=== PATIENT | female | born 1950 | race Caucasian/White ===

== ENCOUNTER → 2024-07-22 11:24 | Outpatient (REF) | payer MEDICARE, SELFPAY | LOC: RAD 11:24 | PROVIDERS: ATTENDING PHYSICIAN Family Medicine | DX: J44.9 Chronic obstructive pulmonary disease, unspecified (principal); N18.32 Chronic kidney disease, stage 3b | CPT/HCPCS: 71046; 71250 ==

== ENCOUNTER → 2024-08-08 13:31 | Outpatient (REF) | payer MEDICARE, SELFPAY | LOC: RAD 13:31 | PROVIDERS: ATTENDING PHYSICIAN Physician Assistant | DX: R09.02 Hypoxemia (principal) | CPT/HCPCS: 71046 ==

== ENCOUNTER → 2024-08-21 15:47 | Outpatient (REF) | payer MEDICARE, SELFPAY | LOC: RCS 15:47 | PROVIDERS: ATTENDING PHYSICIAN Physician Assistant; FAMILY PHYSICIAN Family Medicine | DX: R06.02 Shortness of breath (principal) | CPT/HCPCS: 93306 ==

== ENCOUNTER 2024-10-01 19:42 | Inpatient (IN) | payer MEDICARE, SELFPAY ==
[2024-10-01] VITALS (11 sets, daily range): BP systolic 111–141; BP diastolic 53–78; BMI 20.2
[2024-10-01 12:53] LABS: % Basophils 0.7 % (0-2); % Eosinophils 2.4 % (0-6); % Immature Granulocytes 0.2 % (0-0.5); % Neutrophils 82.7 % (42.2-75.2); Absolute Basophils 0.1 10^3/uL (0-0.2); Absolute Eosinophils 0.2 10^3/uL (0-0.7); Absolute Lymphocytes 0.7 10^3/uL (1.2-3.4); Absolute Monocytes 0.6 10^3/uL (0.1-0.6); Absolute Neutrophils 7.5 10^3/uL (1.4-6.5); Hematocrit 38.4 % (37.0-47.0); Hemoglobin 11.6 g/dL (12.0-16.0); Mean Corp Hgb Conc. 30.2 g/dL (33.0-37.0); Mean Corpuscular Hgb 31.8 pg (27.0-31.0); Mean Corpuscular Volume 105.2 fL (81.0-99.0); Mean Platelet Volume 10.2 fL (7.4-10.4); Nucleated Red Blood Cells % 0 %; Platelet Count 223 10^3/uL (130-400); Red Blood Cell Count 3.65 10^6/uL (4.20-5.40); Red Cell Dist. Width 16.2 % (11.5-14.5); White Blood Cell Count 9.1 10^3/uL (4.8-10.8)
[2024-10-01 13:11] LABS: ALT (SGPT) < 10 U/L (0-35); AST (SGOT) 25 U/L (14-36); Albumin 4.2 g/dl (3.5-5.0); Alkaline Phosphatase 89 U/L (38-126); Blood Urea Nitrogen 55 mg/dl (7-17); Calcium 9.5 mg/dl (8.4-10.2); Carbon Dioxide 36 mmol/L (22-30); Chloride 93 mmol/L (98-107); Estimated Creatinine Clearance 37 ml/min; Glucose 113 mg/dl (70-99); Potassium 4.6 mmol/L (3.5-5.1); Sodium 138 mmol/L (135-145); Total Bilirubin 0.7 mg/dl (0.2-1.3); Total Protein 7.5 g/dl (6.3-8.2); eGFR 59.86
[2024-10-01 13:19] LABS: Procalcitonin < 0.05 ng/ml (0.0-0.25)
[2024-10-01 13:26] LABS: NT-proBNP 18800 pg/ml; Troponin I 0.064 ng/ml
[2024-10-01] MEDS: DUONEB 3 ML INH (13:52)
--- NOTE | 2024-10-01 14:03 | ED.GENMED ---
History of Present Illness
General
Chief Complaint: Breathing Problem
Source: patient, spouse and ambulance crew
Time Seen by Provider: 10/01/24 12:25
History of Present Illness
History of Present Illness:
74-year-old female presents to the emergency room by ambulance from her pulmonary doctors office for further evaluation of profound hypoxia. Patient has a history of COPD and is on chronic nasal cannula oxygen at 4 L. Patient was seen by her
business development associate a month or so ago and noted to be quite hypoxic. They recommended she come to the emergency at that time for a workup but patient refused. Follow-up visit today reveals the patient continued to be hypoxic in the 70s despite using 15
L of oxygen via a mid flow nasal cannula. Patient feels generally weak and feels quite short of breath with minimal exertion. She denies any chest pain, fevers, chills. She says she has no cough whatsoever.
Past History
Past History
ED Past Medical History: HTN and NIDDM
ED Past Surgical History: Orthopedic (back surgery 1989)
Social History
Tobacco: Former smoker
Alcohol: Occasional
Personal:
Living: with family
Employment: Not employed
Phy Exam
Physical Exam
Physical Exam:
General: Awake, Alert, Oriented X3. Cyanotic, cachectic
Vitals: Hypoxic, normotensive
Head: Atraumatic
Eyes: Pupils equal, EOMI
Throat: Airway intact, no exudates
Neck: Trachea midline
Lungs: Significantly decreased breath sounds bilaterally
Heart: Regular rate, no murmurs
Abd: Soft, Nontender, No pulsatile mass
Neuro: Nonfocal
Skin: Warm, dry, no rash
Extremities: pulses equal b/l, no edema peripheral cyanosis
Scores
Heart Failure Risk
Heart Failure Risk Score: Not Applicable
Course
Orders/Labs/Results
Orders:
Orders
10/01/24 12:28
EKG [Electrocardiogram (*1)] Stat
Reason for Study: Shortness of Breath
EKG- Treatment ONCE
10/01/24 12:35
Cardiac Monitoring- Treatment ONCE
Ipratropium/Albuterol Sulfate [Duoneb] 3 ml INH R NOW STA
10/01/24 12:36
CR Chest Portable - 1 View Urgent
Comment:
Reason For Exam: severe hypoxia
Reason Study Needs to be Portable: Unable to Transport
10/01/24 12:37
O2 Therapy [RESP] Urgent
Titrate/Wean O2 to maintain O2 sat greater than (%): 88
10/01/24 12:44
Complete Blood Count/With Diff Urgent
Comprehensive Metabolic Panel Urgent
NT-proBNP Urgent
Procalcitonin Urgent
PCT Algorithmm Indication: Respiratory
Troponin I Urgent
10/01/24 13:17
CT Chest PE Study Urgent
Comment:
Reason For Exam: hypoxia
10/01/24 14:00
0.9% Sodium Chloride 500 ml [Nss] 500 ml IV 150 mls/hr
Abnormal Lab Results
10/01/24
12:44
RBC 3.65 L 10^6/uL
(4.20-5.40)
Hgb 11.6 L g/dL
(12.0-16.0)
MCV 105.2 H fL
(81.0-99.0)
MCH 31.8 H pg
(27.0-31.0)
MCHC 30.2 L g/dL
(33.0-37.0)
RDW 16.2 H %
(11.5-14.5)
Absolute Neuts (auto) 7.5 H 10^3/uL
(1.4-6.5)
Absolute Lymphs (auto) 0.7 L 10^3/uL
(1.2-3.4)
Neutrophils % 82.7 H %
(42.2-75.2)
Lymphocytes % 8.0 L %
(20.5-51.1)
Chloride 93 L mmol/L
(98-107)
Carbon Dioxide 36 H mmol/L
(22-30)
BUN 55 H mg/dl
(7-17)
Glucose 113 H mg/dl
(70-99)
Troponin I 0.064 H* ng/ml
10/01/24 12:44
10/01/24 12:44
Vital Signs
Initial and Last Documented VS:
Initial Vital Signs
Pulse Resp BP Pulse Ox
76 14 141/74 76
10/01/24 12:27 10/01/24 12:27 10/01/24 12:27 10/01/24 12:27
Last Documented Vital Signs
Pulse Resp BP Pulse Ox
74 25 141/74 93
10/01/24 12:45 10/01/24 12:45 10/01/24 12:29 10/01/24 13:53
*Pulse Oximetry
Patient hypoxic: yes
*EKG
Interpreted by ED Provider?: Yes
Interpretation: abnormal
Heart Rate: 80
Rate: normal
Rhythm: sinus
Interval: normal interval
QRS Pattern: normal QRS
Ischemia: non-specific ST changes
*Senior Gis Analyst Interpretation
Rate: normal
Interpretation: normal
Rhythm: sinus
*Critical Care Note
Total Time (30-74mins, 75-104mins- exclusive of procedures): 43 min
ED Attending Note
-
Portions of this chart may have been created with voice recognition software.� Occasional wrong word or��sound alike� substitutions may have occurred due to the inherent limitations of voice recognition software.
Discharge Plan
Departure
Prescriptions:
No Action
atorvastatin 40 MG tablet
40 mg PO HS
metoprolol succinate 100 MG tablet extended release 24 hr
100 mg PO DAILY
metformin 1,000 MG tablet
1,000 mg PO BID@0800,1700
aspirin 81 MG tablet,chewable
81 mg PO DAILY
hydrochlorothiazide 25 MG tablet
25 mg PO DAILY
albuterol sulfate 1 PUFF HFA aerosol inhaler
2 puff inhalation R Q4HPRN PRN (Reason: sob)
lisinopril 40 MG tablet
40 mg PO DAILY
multivitamin with folic acid [Tab-A-Bernardo] 1 TABLET tablet
1 tab PO DAILY
Referrals:
Eduar Hernandez MD [Family Provider] -
Interventions
Interventions:
*General Assessment Last Done: 10/01/24 12:35
*ED COVID-19 Vaccine History Last Done: 10/01/24 12:35
Discharge Date and Time
Print Language: BURKINAN
[2024-10-01] MEDS: NSS 500 IV (15:33)
--- NOTE | 2024-10-01 16:22 | HPS.HSE ---
Addendum entered and electronically signed by Maya Peng MD 10/01/24 21:21:
Patient wants to be full code.
Original Note:
Family Physician
-
Family Physician: Eduar Hernandez
Chief Complaint
-
shortn
History of Present Illness
74-year-old female past medical history of COPD, hypertension, hyperlipidemia, type 2 diabetes, obesity, presenting with profound hypoxemia.
She was seen by her paving machine operator approximately 2 months ago and noted to be hypoxic. They recommended she come to the emergency room at the time for workup but patient refused. She has been using initially 4 L of oxygen up to 15 L. Follow-up
visit today reveals the patient continues to be hypoxic to the 70s despite using 15 L of oxygen via mid flow nasal cannula. She has not been on any diuretics. She had outpatient echocardiogram.
Patient has recently been treated with 10-day course of amoxicillin for sinus infection. She has 2 days left. She denies any sinus symptoms currently.
She denies cough. Denies chest pain. Denies nausea vomiting or diarrhea. She has some lower extreme edema but denies weight gain.
Patient denies alcohol. He is a former smoker.
Medical History
Past Medical History
Past Medical History: Reports Other (COPD on 4 L baseline, hypertension, hyperlipidemia, type 2 diabetes, obesity)
Past Surgical History: Reports Other (Orthopedic (back surgery 1989))
Social History
Tobacco: Former Smoker
Alcohol: None
Drug: None
Family History
Family History: Not pertinent
Allergies / Home Medications
Allergies reflects when Allergies were last updated in [facility].
Home Medications with original date entered in [facility]
Allergy/Medication List:
Allergies
Allergy/AdvReac Type Severity Reaction Status Date / Time
hydromorphone [From Dilaudid] Allergy hypoxia Verified 08/30/21 18:31
and n/v
Home Medications
albuterol sulfate 90 mcg/actuation aerosol inhaler 2 puff inhalation R Q4HPRN PRN sob 08/30/21
aspirin 81 mg chewable tablet 81 mg PO DAILY 08/30/21
atorvastatin 40 mg tablet 40 mg PO HS 08/30/21
hydrochlorothiazide 25 mg tablet 25 mg PO DAILY 08/30/21
lisinopril 40 mg tablet 40 mg PO DAILY 08/30/21
metformin 1,000 mg tablet 1,000 mg PO BID@0800,1700 08/30/21
metoprolol succinate 100 mg tablet,extended release 24 hr 100 mg PO DAILY 08/30/21
multivitamin with folic acid 400 mcg tablet (Tab-A-Bernardo) 1 tab PO DAILY 08/30/21
amoxicillin 500 mg capsule 1,000 mg PO Q12H 10/01/24
escitalopram oxalate 20 mg tablet (Lexapro) 20 mg PO DAILY 10/01/24
Review of Systems
-
History Source: Patient
A 12 point ROS was completed and negative except as noted: Yes
Constitutional: Reports No Symptoms
EENT: Reports No Symptoms
Respiratory: Reports See HPI
Cardiac: Reports No Symptoms
Abdomen/GI: Reports No Symptoms
: Reports No Symptoms
Musculoskeletal: Reports No Symptoms
Skin: Reports No Symptoms
Neurological: Reports No Symptoms
Endocrine: Reports No Symptoms
Hematologic/Lymphatic: Reports No Symptoms
Psych: Reports No Symptoms
Physical Exam
Vital Signs
Vital Signs
Pulse Resp BP Pulse Ox
75 19 119/57 85
10/01/24 16:00 10/01/24 16:00 10/01/24 16:00 10/01/24 16:10
Physical Exam
General: Well Developed, Well Nourished and No Apparent Distress
HEENT: NormoCephalic, Moist mucous membranes and Atraumatic
Respiratory: Rales
Cardiac: S1/S2, Regular Rhythm and Peripheral Edema; No Murmur or Rub
GI: Soft, Non Tender, Non Distended and Normal Bowel Sounds; No Organomegaly
Rectal: Deferred by Provider
Musculoskeletal: No Clubbing, No Cyanosis and No Edema
Skin: No Rash
Neuro: Nonfocal/grossly intact
Laboratory Results
-
10/01/24 12:44
10/01/24 12:44
Laboratory Results
Total Bilirubin 0.7 mg/dl (0.2-1.3) 10/01/24 12:44
AST 25 U/L (14-36) 10/01/24 12:44
ALT < 10 U/L (0-35) 10/01/24 12:44
Alkaline Phosphatase 89 U/L (38-126) 10/01/24 12:44
Troponin I 0.064 ng/ml H* 10/01/24 12:44
Data Reviewed
-
Lab Data: Labs Reviewed by me
Old Records: Reviewed
Impression/Plan
-
IMPRESSION:
PLAN:
# Hypoxemic respiratory failure secondary to right heart failure secondary to severe pulmonary hypertension/tricuspid regurgitation
-Bilateral crackles on examination
-Patient currently on high flow
-CT PE shows no acute disease of the chest
-Cardiac BNP of 18,000
-EKG shows normal sinus rhythm, sinus arrhythmia
-Recent echo shows hyperdynamic LV with EF of 70 to 75%, flattened septum, RV overload, severe tricuspid regurgitation, severe pulmonary hypertension
-Strict I's and O's, daily weights
-Given IV fluids so stop fluids
-Lasix 40 IV daily
-Cardiology consulted
-Pulmonary consulted
COPD
-was not on oxygen until July
-Continue albuterol
Recent sinus infection
-Continue amoxicillin for 2 more days
Essential hypertension
-Continue metoprolol
-Hold lisinopril, hydrochlorothiazide to avoid hypotension during diuresis
Hyperlipidemia
-Continue statin
Type 2 diabetes
-Hold metformin
-Insulin sliding scale
Obesity
Anxiety/depression
-Continue Lexapro
Former smoker
DNR/DNI
DVT prophylaxis�heparin
Cardiac diet
--- NOTE | 2024-10-01 16:44 | CON.CAR ---
Addendum entered and electronically signed by Gerber Rodriguez MD 10/01/24 17:31:
I saw and examined the patient.
The Cotton Sampler's note was reviewed and I agree with the note.
Comment: Briefly, 74-year-old woman past medical history of stage IV COPD on home O2 (15 L) and severe pulmonary hypertension who was sent from her assessment analyst office due to hypoxia. Cardiology is asked to evaluate for suspected HFpEF.
Patient tells me that she has had worsening dyspnea over the last several weeks and has been requiring increased supplemental oxygen at home. In addition during this time she has noted worsening lower extremity edema which she attributes to a new
inhaled controller medication. Discussed with patient that recent echo showed preserved LV function but dilated right ventricle with severe range pulmonary pressures and this is likely contributing to her lower extremity edema.
Recommend IV Lasix 40 mg twice daily to improve her edema and hopefully her respiratory status
Follow daily weights, renal function and electrolytes
Explained to her that she will likely need daily maintenance diuretic on discharge
Discussed with patient and family at bedside, all questions answered
Original Note:
Consultation
Consultation Request
Date/Time Consultation Requested: 10/01/24
Date/Time Consultation Performed: 10/01/24
Requesting Provider: Dr. Peng
Performing Provider: Dr. Rodriguez
Reason for Consultation: Acute HF
Medical History
-
History of Present Illness:
Patient was sent from pulmonology office to ER today with hypoxia and cardiology is now consulted for possible acute HF. Patient started following with pulmonology in August for possible COPD and increasing SOB. Home oxygen had been started
by her PCP back in June. Pulmonology added inhalers. When patient was seen at their office today she was noted to be hypoxic on maximal oxygen therapy and 911 was called. Patient is felt to have stage IV COPD her hypoxia though was felt to be
multifactorial including emphysema, ILD and pulmonary hypertension. Patient had echo 08/21/2024 as noted above with severe pulmonary hypertension and pulmonary artery pressures of 85 to 90 mmHg. Patient was scheduled to see Dr. Singh as a new
patient in the office on 10/06/2024. There is no previous cardiac testing here at [facility]. proBNP 18,800 and CXR without acute disease. The CT of the chest showed no evidence of PE which apparently was a concern from pulmonology while in the
office. CT of the chest though did show a spiculated pleural-based nodule in the anterior right upper lobe for which PET imaging has been recommended.
PMH:
Severe pulmonary hypertension
COPD, stage IV
Former smoker
Weight loss
Past Medical History
Past Medical History: Other (in HPI)
Past Surgical History: Orthopedic and Tonsilectomy
Social History
Tobacco: Former Smoker (30 pack year history)
Alcohol: None
Drug: None
Personal:
Living: With Family
Family History
Family History: Cancer (lung)
Allergies / Home Medications
Allergy/AdvReac Type Severity Reaction Status Date / Time
hydromorphone [From Dilaudid] Allergy hypoxia Verified 08/30/21 18:31
and n/v
�Medication �Instructions �Recorded �Confirmed �Type
albuterol sulfate 90 mcg/actuation 2 puff inhalation R Q4HPRN PRN sob 08/30/21 10/01/24 History
aerosol inhaler
aspirin 81 mg chewable tablet 81 mg PO DAILY 08/30/21 10/01/24 History
atorvastatin 40 mg tablet 40 mg PO HS 08/30/21 10/01/24 History
hydrochlorothiazide 25 mg tablet 25 mg PO DAILY 08/30/21 10/01/24 History
lisinopril 40 mg tablet 40 mg PO DAILY 08/30/21 10/01/24 History
metformin 1,000 mg tablet 1,000 mg PO BID@0800,1700 08/30/21 10/01/24 History
metoprolol succinate 100 mg 100 mg PO DAILY 08/30/21 10/01/24 History
tablet,extended release 24 hr
multivitamin with folic acid 400 1 tab PO DAILY 08/30/21 10/01/24 History
mcg tablet (Tab-A-Bernardo)
amoxicillin 500 mg capsule 1,000 mg PO Q12H 10/01/24 10/01/24 History
escitalopram oxalate 20 mg tablet 20 mg PO DAILY 10/01/24 10/01/24 History
(Lexapro)
Review of Systems
-
History Source: Patient and Family
All other systems: Negative unless noted
Physical Exam
Vital Signs
Pulse Resp BP Pulse Ox
75 19 119/57 85
10/01/24 16:00 10/01/24 16:00 10/01/24 16:00 10/01/24 16:10
GEN: NAD. AAOx3
HEENT: EOMI, MMM
LUNGS: 15 L high flow. Rales without wheeze
CV: SR on tele. Reg, no murmur
ABD: soft, BS+, NT, ND
EXT: No edema B/L
NEURO: Gross non-focal
SKIN: No rash
Lab Results
10/01/24 12:44
10/01/24 12:44
Troponin I 0.064 ng/ml H* 10/01/24 12:44
Gzq-A-Mbyhqnczwxp Pept 75301 pg/ml 10/01/24 12:44
Impression / Plan
-
PCP: Dr. Hernandez
Pulm: Dr. Garcia
Card: scheduled to see Dr. Connolly as a new patient 10/06/24
Impression:
Admitted with multifactorial SOB 10/01/2024
Acute hypoxemic respiratory failure, multifactorial
Elevated troponin
Suspected right heart failure
Severe pulmonary hypertension
COPD, stage IV
Former smoker
Weight loss
Spiculated pleural-based nodule in the anterior right upper lobe on CT chest 10/01/2024
Echo 08/21/2024: EF 70 to 75%, flattened septum in systole consistent with RV pressure overload (D-shaped ventricle), enlarged RV size with normal RV systolic function, calcified aortic valve without obvious stenosis or regurgitation, severe TR with
severe pulmonary hypertension and PAP 85 to 90 mmHg, no previous echo for comparison
Plan:
-Patient was sent from pulmonology office to ER today with hypoxia and cardiology is now consulted for possible acute HF. Patient started following with pulmonology in August for possible COPD and increasing SOB. Home oxygen had been started
by her PCP back in June. Pulmonology added inhalers. When patient was seen at their office today she was noted to be hypoxic on maximal oxygen therapy and 911 was called. Patient is felt to have stage IV COPD her hypoxia though was felt to be
multifactorial including emphysema, ILD and pulmonary hypertension. Patient had echo 08/21/2024 as noted above with severe pulmonary hypertension and pulmonary artery pressures of 85 to 90 mmHg. Patient was scheduled to see Dr. Singh as a new
patient in the office on 10/06/2024. There is no previous cardiac testing here at [facility]. proBNP 18,800 and CXR without acute disease. The CT of the chest showed no evidence of PE which apparently was a concern from pulmonology while in the
office. CT of the chest though did show a spiculated pleural-based nodule in the anterior right upper lobe for which PET imaging has been recommended.
-ECG reviewed by me shows sinus rhythm with inferior ST changes.
-Initial troponin 0.064. ECG with nonspecific inferior ST changes. No complaints of chest pain. Troponin elevation certainly could be nonischemic myocardial injury due to hypoxia. Recommend trending troponin.
-Continue aspirin 81 mg daily
-Check follow-up limited study echo to recheck EF and look for WMA, EF was 70 to 75% by echo 08/21/2024 without WMA. Patient is not a candidate for any type of ischemic evaluation currently due to high oxygen demands
-Agree with Lasix 40 mg IV twice daily. Patient was not taking a loop diuretic prior to admission, but was on a regimen of HCTZ 25 mg daily. HCTZ should be held.
-Outpatient dose of Toprol XL 100 mg daily should be continued, no wheezing heard on exam
-Outpatient dose of lisinopril 40 mg daily should be continued
-Could consider adding SGLT2 pending overall clinical course.
-Patient with an enlarged RV, but normal RV systolic function on echo 08/21/2024. Pulmonary pressures were elevated and this is likely due to her underlying lung disease which would be most consistent with secondary pulmonary hypertension.
-Patient with evidence of spiculated pleural-based nodule in the anterior right upper lobe and PET imaging was recommended after CT scan 10/01/2024. This apparently was not a new finding and patient was previously ordered a PET scan by her PCP.
Pulmonology outpatient notes reviewed in detail and patient has a history of smoking and has had a 50 pound weight loss in the last 3 years
[2024-10-01] MEDS: LASIX 40 MG IV (16:59)
[2024-10-01] MEDS: NSS IV ×2 (17:26→23:43)
[2024-10-01 23:47] LABS: Glucose - Point of Care 147 mg/dl (70-99)
[2024-10-02] VITALS (20 sets, daily range): BP systolic 101–149; BP diastolic 57–83
[2024-10-02] MEDS: TYLENOL 650 MG PO ×2 (00:03→09:41)
[2024-10-02] MEDS: LIPITOR 40 MG PO ×2 (00:04→20:53)
[2024-10-02] MEDS: NOVOLOG FLEXPEN-LOW RESISTANCE SC ×4 (00:04→17:24)
[2024-10-02] MEDS: AMOXIL 1000 MG PO ×3 (00:04→20:53)
[2024-10-02] MEDS: HEPARIN 5000 UNITS SC ×3 (00:04→20:54)
[2024-10-02 05:02] LABS: ALT (SGPT) < 10 U/L (0-35); AST (SGOT) 21 U/L (14-36); Albumin 3.2 g/dl (3.5-5.0); Alkaline Phosphatase 75 U/L (38-126); Blood Urea Nitrogen 53 mg/dl (7-17); Calcium 8.3 mg/dl (8.4-10.2); Chloride 93 mmol/L (98-107); Estimated Creatinine Clearance 33 ml/min; Glucose 98 mg/dl (70-99); Potassium 4.1 mmol/L (3.5-5.1); Sodium 139 mmol/L (135-145); Total Bilirubin 0.7 mg/dl (0.2-1.3); eGFR 53.39
[2024-10-02 05:12] LABS: Carbon Dioxide 35 mmol/L (22-30)
[2024-10-02 06:53] LABS: % Eosinophils 3.9 % (0-6); % Immature Granulocytes 0.5 % (0-0.5); % Lymphocytes 11.8 % (20.5-51.1); % Monocytes 8.8 % (1.7-9.3); Absolute Basophils 0.1 10^3/uL (0-0.2); Absolute Eosinophils 0.3 10^3/uL (0-0.7); Absolute Lymphocytes 0.9 10^3/uL (1.2-3.4); Absolute Monocytes 0.7 10^3/uL (0.1-0.6); Absolute Neutrophils 5.9 10^3/uL (1.4-6.5); Hematocrit 30.6 % (37.0-47.0); Hemoglobin 9.8 g/dL (12.0-16.0); Mean Corpuscular Hgb 32.2 pg (27.0-31.0); Mean Corpuscular Volume 100.7 fL (81.0-99.0); Mean Platelet Volume 10.5 fL (7.4-10.4); Nucleated Red Blood Cells % 0 %; Platelet Count 173 10^3/uL (130-400); Red Blood Cell Count 3.04 10^6/uL (4.20-5.40); Red Cell Dist. Width 15.6 % (11.5-14.5)
--- NOTE | 2024-10-02 08:50 | W.PN.CARDCBS ---
Today's Communication / Plan
-
RECOMMENDATIONS:
-Continue IV diuresis
-Follow renal function
-I suspect hypoxia and severe pulmonary hypertension likely not one etiology but multifactorial
-Will follow
Impression / Plan
-
PCP: Dr. Hernandez
Pulm: Dr. Garcia
Card: scheduled to see Dr. Connolly as a new patient 10/06/24
This is a 74-year-old female with a past medical history notable for severe underlying COPD and was initiated on home oxygen therapy in June 2024. Additional history includes hypertension and hyperlipidemia. Long history of tobacco abuse. A
chest CT scan from 07/22/2024 was notable for a 1.4 cm pleural-based parenchymal opacity in the anterior right upper lobe with recommended PET scan
.
She was evaluated by Dr. Katlin Garcia on 08/06/2024 for evaluation of shortness of breath and was found to have O2 saturations in the 60s on room air and required 10 L of O2 with ambulation to maintain O2 levels above 90%. Hospitalization was
discussed with the patient at that time which she refused. The patient had reported that her shortness of breath had been worsening over several years. She has refused hospitalization after her office visit with Dr. Garcia. She was seen on a second
occasion by Dr. Gracia on 10/01/2024. Troponin is mildly elevated 0.064 ng/ml
Impression:
Admitted with multifactorial SOB 10/01/2024
Acute hypoxemic respiratory failure, multifactorial
Elevated troponin
Suspected right heart failure
Severe pulmonary hypertension
COPD, stage IV
Former smoker
Weight loss
Spiculated pleural-based nodule in the anterior right upper lobe on CT chest 10/01/2024
-10/01/2024: CT chest: Spiculated pleural-based nodule in the anterior right upper lobe
-08/21/2024: Echo: LV: EF 70-75%. Flattened septum consistent with RV pressure/volume overload with D-shaped septum. RV: Dilated, LA: Normal, RA: Normal, MV: No MR, AV: Calcified AV with trace AI, TV: Severe TR with severe pulmonary hypertension
and estimated PAP 85-90 mmHg
-08/06/2024: PFT: FEV1: 0.69 (40%), FVC: 1.49 (64%). Findings were consistent with severe obstruction and mild restrictive lung disease
-07/22/2024: CT chest: Soft tissue fullness in the hilar region suggest at least mild hilar adenopathy with mild mediastinal adenopathy. There is a 1.4 cm based parenchymal opacity in the right upper lobe. Recommended PET.
Plan:
-Continue IV diuresis
-Continue aspirin 81 mg daily
-Could consider adding SGLT2 in future
-Troponin elevation: NON-IN troponin elevation. I would be fairly conservative in evaluation given pulmonary mass and really high O2 requirements
-May consider right heart catheterization at some point but would continue diuresis for now. Doubtful there is anything truly reversible re: pulmonary status.years
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
Subjective
Date of Service: October 02, 2024
Remains short of breath
Objective
Labs:
10/02/24 04:20
10/02/24 04:20
Labs
Hgb 9.8 g/dL (12.0-16.0) L 10/02/24 04:20
Hct 30.6 % (37.0-47.0) L 10/02/24 04:20
Plt Count 173 10^3/uL (130-400) D 10/02/24 04:20
Sodium 139 mmol/L (135-145) 10/02/24 04:20
Potassium 4.1 mmol/L (3.5-5.1) 10/02/24 04:20
BUN 53 mg/dl (7-17) H 10/02/24 04:20
Creatinine 1.1 mg/dL (0.6-1.0) H 10/02/24 04:20
Glucose 98 mg/dl (70-99) 10/02/24 04:20
Troponins
10/01/24
12:44
Troponin I 0.064 H*
Vital Signs and I&O:
Vital Signs
Temp Pulse Resp BP Pulse Ox
98 F 74 19 117/64 93
10/02/24 04:05 10/02/24 06:00 10/02/24 06:00 10/02/24 06:00 10/02/24 08:43
Vital Signs
Temp Pulse Resp BP Pulse Ox
98 F 74 19 117/64 93
10/02/24 04:05 10/02/24 06:00 10/02/24 06:00 10/02/24 06:00 10/02/24 08:43
Intake & Output
09/29/24 09/30/24 10/01/24 10/02/24
23:59 23:59 23:59 23:59
Output Total 600 / 600
Balance -600 / -600
Physical Exam
Physical Exam
Gen: Lying in bed. Appears comfortable. High flow NC in place
HEENT: NC/AT, sclera anicteric.
Lungs: Surprisingly good air movement and no wheezing
CV: RRR
Ext: no edema
[2024-10-02] MEDS: THERAGRAN 1 TABLET PO (09:12)
[2024-10-02] MEDS: TOPROL XL 100 MG PO (09:12)
[2024-10-02] MEDS: LEXAPRO 20 MG PO (09:12)
[2024-10-02] MEDS: LOW STRENGTH ASPIRIN 81 MG PO (09:13)
[2024-10-02] MEDS: LASIX 40 MG IV ×2 (09:14→17:24)
[2024-10-02 09:31] LABS: Glucose - Point of Care 108 mg/dl (70-99)
[2024-10-02 11:44] LABS: Glycohemoglobin (HgbA1c) 5.7 % (4.0-5.6)
[2024-10-02 12:33] LABS: Glucose - Point of Care 116 mg/dl (70-99)
--- NOTE | 2024-10-02 14:14 | W.PN.HOSP.TC ---
Today's Communication/Plan
-
iv diuresis
Assessment / Plan
Assessment / Plan
GEN: NAD. AAOx3
HEENT: EOMI, MMM
LUNGS: high flow. Rales without wheeze
CV: SR on tele. Reg, no murmur
ABD: soft, BS+, NT, ND
EXT: No edema B/L
NEURO: Gross non-focal
SKIN: No rash
# Hypoxemic respiratory failure secondary to right heart failure secondary to severe pulmonary hypertension/tricuspid regurgitation + Acute HFpEF
-Bilateral crackles on examination
-Patient currently on high flow
-Recent echo shows hyperdynamic LV with EF of 70 to 75%, flattened septum, RV overload, severe tricuspid regurgitation, severe pulmonary hypertension
-Strict I's and O's, daily weights
-Given IV fluids so stop fluids
-Lasix 40 IV BID
-Cardiology consulted
-Pulmonary consulted
-wean o2 as tolerated; goal o2 >88%
COPD
-was not on oxygen until July
-Continue albuterol
Recent sinus infection
-Continue amoxicillin for 2 more days
Essential hypertension
-Continue metoprolol
-Hold lisinopril, hydrochlorothiazide to avoid hypotension during diuresis
Hyperlipidemia
-Continue statin
Type 2 diabetes
-Hold metformin
-Insulin sliding scale
Obesity
Anxiety/depression
-Continue Lexapro
#Elevated troponin
Nonischemic myocardial injury secondary to acute HFpEF, pulm hypertension
� No chest pain
Spiculated pleural-based nodule in the anterior right upper lobe for which PET imaging is recommended.
Former smoker
DNR/DNI
DVT prophylaxis�heparin
Cardiac diet
Anticipated Discharge: > 48 hours
Subjective/Interval History
-
Date of Service: October 02, 2024
Feels somewhat better with diuretics
Objective Data
-
Labs:
Laboratory Results
10/02/24
04:20
WBC 8.0
Hgb 9.8 L
Hct 30.6 L
Plt Count 173 D
Sodium 139
Potassium 4.1
Chloride 93 L
Carbon Dioxide 35 H
BUN 53 H
Creatinine 1.1 H
Glucose 98
Calcium 8.3 L
Total Bilirubin 0.7
AST 21
ALT < 10
Alkaline Phosphatase 75
Vital Signs:
Vital Signs
Temp Pulse Resp BP Pulse Ox
98 F 69 18 131/62 91
10/02/24 04:05 10/02/24 12:00 10/02/24 12:00 10/02/24 12:00 10/02/24 12:00
I&O
10/01/24 10/02/24 10/03/24
06:59 06:59 06:59
Output Total 600 / 600
Balance -600 / -600
Review of Systems
-
History Source: Patient
All other systems: Not reviewed unless documented
Data Reviewed
-
Labs: Labs Reviewed by me
--- NOTE | 2024-10-02 15:25 | PTCARENOTE ---
Received patient from ED via stretcher accompanied by ED RN and resp therapist. High flow in use at 60L and 85%. POx 86-88%; NRB placed to assist patient recovery from movement/activity. RT Alexia changed high flow settings to: 100% and 50L. POx 94%.
Lungs diminished t/o; coarse bibasilar. Patient states she feels much better.
[2024-10-02] MEDS: VENTOLIN NEBULES 2.5 MG INH ×2 (15:32→19:31)
--- NOTE | 2024-10-02 15:50 | CON.PUL ---
Consultation
Consultation Request
Date/Time Consultation Requested: 10/02/2024
Date/Time Consultation Performed: 10/02/2024
Requesting Provider: Dr. Orourke
Performing Provider: Dr. Mitchel Lyon
Reason for Consultation: Acute hypoxemic respiratory failure/pulmonary hypertension
Medical History
-
History of Present Illness:
74-year-old man with past medical history significant for severe COPD, chronic hypoxemic respiratory failure, pulmonary hypertension, hyperlipidemia, type 2 diabetes, obesity presented with significant hypoxemia on 10/01/2024 [facility] records reviewed.
Seen by Dr. Garcia in August at that time found to be significantly hypoxemic requiring up to 10 L. At that time she was recommended to come to the emergency room but she declined. She was recommended to get an echocardiogram and she was also due
to get a PET scan for a lung abnormality. None of the test happen. Patient was hypoxemic down to the 70s despite 15 L via nasal cannula.
She was treated recently with 10 days of amoxicillin for possible sinus infection. Denies any fevers or chills. Denies hemoptysis.
Does report some lower extremity edema.
She is a former smoker quit many years ago.
-
Patient does report exposure to weight loss medications many years ago. She does not recall names.
Past Medical History
Past Medical History: Other (See assessment and plan)
Social History
Tobacco: Former Smoker
Alcohol: None
Drug: None
Living: With Family
Family History
Family History: Reviewed & Not Pertinent
Allergies / Home Medications
Allergies
Allergy/AdvReac Type Severity Reaction Status Date / Time
hydromorphone [From Dilaudid] Allergy hypoxia Verified 08/30/21 18:31
and n/v
Home Medications
�Medication �Instructions �Recorded �Confirmed �Last Taken �Type
albuterol sulfate 90 mcg/actuation 2 puff inhalation R Q4HPRN PRN sob 08/30/21 10/01/24 Unknown History
aerosol inhaler
aspirin 81 mg chewable tablet 81 mg PO DAILY 08/30/21 10/01/24 10/01/24 History
atorvastatin 40 mg tablet 40 mg PO HS 08/30/21 10/01/24 09/30/24 History
hydrochlorothiazide 25 mg tablet 25 mg PO DAILY 08/30/21 10/01/24 10/01/24 History
lisinopril 40 mg tablet 40 mg PO DAILY 08/30/21 10/01/24 10/01/24 History
metformin 1,000 mg tablet 1,000 mg PO BID@0800,1700 08/30/21 10/01/24 10/01/24 History
metoprolol succinate 100 mg 100 mg PO DAILY 08/30/21 10/01/24 10/01/24 History
tablet,extended release 24 hr
multivitamin with folic acid 400 1 tab PO DAILY 08/30/21 10/01/24 10/01/24 History
mcg tablet (Tab-A-Bernardo)
amoxicillin 500 mg capsule 1,000 mg PO Q12H 10/01/24 10/01/24 10/01/24 History
escitalopram oxalate 20 mg tablet 20 mg PO DAILY 10/01/24 10/01/24 10/01/24 History
(Lexapro)
Review of Systems
-
History Source: Patient
All other systems: Negative unless noted
Vitals / Labs / Diagnostic Testing
Vital Signs
Temp Pulse Resp BP Pulse Ox
98 F 66 18 122/62 93
10/02/24 04:05 10/02/24 15:37 10/02/24 15:37 10/02/24 14:00 10/02/24 15:37
Lab Data
10/02/24 04:20
10/02/24 04:20
Diagnostic Testing:
Physical Exam
-
HEENT: Normocephalic
Cardiovascular: S1/S2
Respiratory: Non-Labored Respirations
GI: Soft and Non Distended
Neurology: Awake, Alert and AO x 3
Skin: Warm
General: Comfortable
Assessment
-
74-year-old woman with past medical history noted, advanced COPD with chronic hypoxemic respiratory failure. Here for evaluation of worsening hypoxemia requiring up to high flow oxygen. CT chest without pulmonary embolism or significant
parenchymal lung abnormalities. Prior echocardiogram in mid August 2024 showed severe pulmonary hypertension. We were consulted on 10/02/2024 for evaluation
Acute hypoxemic respiratory failure requiring up to high flow oxygen.
proBNP 18,800/mild troponin leak
Likely due to RV failure with severe pulmonary hypertension based on echocardiogram 08/21/2020
CT chest 10/01/2024: No evidence for pulmonary embolism. Spiculated pleural-based nodule in the anterior right upper lobe stable. Mild bilateral hilar and mediastinal lymphadenopathy.
Lung nodule 1.4X 0.8 cm pleural-based, spiculated, noncalcified right upper lobe-present since 07/2024.
PET scan recommended the patient did not follow through.
Condition present prior admission
Severe COPD: Chronic hypoxemic respiratory failure
Follows with Dr. Garcia last appointment 08/06/2024
Spirometry 08/06/2024: FEV1 0.69 L or 40%, ratio 46%.
Worsening hypoxemic respiratory failure: On 08/06/2024 recommended to go to the emergency room and obtain echo echocardiogram
On BRETRI
Former smoker [id number] history.
Possible obstructive sleep apnea
Pulmonary nodule 1.4 pleural-based irregular parenchymal opacity in the right upper lobe-PET scan was recommended.
CT chest 07/22/2024: Coarse interstitial markings seen bilaterally, diffuse. Upper lobe predominant. Hyperinflation. Prominent pulmonary artery. 1.4 pleural-based irregular parenchymal opacity on the right upper lobe.
50 pound weight loss over the last 3 to 4 years.
Hyperlipidemia
history of psoriasis-treated with topical medical
Type 2 diabetes
Back surgery in the
Echocardiogram 08/21/2024: Reviewed, showed small left ventricular size. Hyperdynamic. Ejection fraction 70 to 75%. Flattened septum in systole consistent with RV pressure overload. Enlarged right ventricular size. Normal right ventricular
systolic function.
Severe TR. Severe pulmonary hypertension pressure 85 to 90 mmHg.
Assessment and plan:
Severe hypoxemia due to likely chronic pulmonary hypertension: Multiple mechanisms, possibly cor pulmonale from underlying lung disease, cannot rule out heart failure with preserved ejection fraction'
Unclear if there is a component of pulmonary arterial hypertension.
CT chest noted with emphysema. There is no interstitial lung disease per right upper lobe small pulmonary nodule.
PET scan has been recommended in the past.
-
Patient does report exposures to weight loss medications 30 to 40 years ago. She does not recall the names.
-
Remains on high flow oxygen 100% FiO2, borderline oxygenation at this point on my exam.
She is able to speak in full sentences.
-
will start by optimizing COPD regimen:
Was supposed to be on bREZTRI in the outpatient setting-will start Spiriva/Symbicort while in the hospital
There is no evidence for acute exacerbation-not bronchospastic on exam
No indication for systemic corticosteroids
-
Agree with IV diuretics
Follow electrolytes and renal function
Cardiology correspondence reviewed.
-
There is no evidence for pulmonary embolism on CAT scan this admission
Liver function testing is normal.
Renal function is relatively normal
Will obtain TSH
Obtain VERITO
Obtain ABG to rule out hypercapnia.
-
She has been recommended to undergo a sleep study but has not been able to do it.
There is suspicion for obstructive sleep apnea.
-
Ultimately may need cardiac catheterization depending on clinical situation. Rule out pulmonary arterial hypertension.
If there is pulmonary arterial hypertension will be a difficult situation with underlying severe COPD. Pulmonary vasodilators in this patient's may trigger paradoxical worsening hypoxemia.
If this is confirmed may need to consider tertiary care [facility] with a pulmonary hypertension center. This could be discussed in the outpatient setting hopefully after she stabilizes and we have ruled out other etiologies
-
DVT prophylaxis with heparin subcu.
-
Will follow
Outpatient follow-up with Dr. Garcia after discharge.
[2024-10-02 17:13] LABS: Glucose - Point of Care 125 mg/dl (70-99)
[2024-10-02] MEDS: SYMBICORT 160/4.5 MCG INHALER 2 PUFF INH (19:31)
--- NOTE | 2024-10-02 20:00 | PTCARENOTE ---
Received pt from previous shift. Systems reviewed, see flowsheets. Pt SaO2 94-100% on HFNC 50L 100%. NRBR at bedside for PRN use. NSR 70s on heart monitor. Purewick in place. No complaints of pain at this time. at bedside. Will continue to
monitor.
[2024-10-02 22:45] LABS: Glucose - Point of Care 249 mg/dl (70-99)
[2024-10-03] VITALS (15 sets, daily range): BP systolic 86–124; BP diastolic 51–72; BMI 19.3
[2024-10-03 04:33] LABS: Hematocrit 33.5 % (37.0-47.0); Hemoglobin 10.5 g/dL (12.0-16.0); Mean Corp Hgb Conc. 31.3 g/dL (33.0-37.0); Mean Corpuscular Hgb 31.9 pg (27.0-31.0); Mean Corpuscular Volume 101.8 fL (81.0-99.0); Mean Platelet Volume 10.3 fL (7.4-10.4); Platelet Count 186 10^3/uL (130-400); Red Blood Cell Count 3.29 10^6/uL (4.20-5.40); Red Cell Dist. Width 15.3 % (11.5-14.5); White Blood Cell Count 9.4 10^3/uL (4.8-10.8)
[2024-10-03 04:42] LABS: B.E. 18.8 mmol/L; O2 Saturation % 91.6 % (94-98); PO2 62 mmHg (83-108); pH 7.41 (7.35-7.45)
[2024-10-03 04:45] LABS: Erythrocyte Sed Rate 24 mm/hour (0-20)
[2024-10-03 04:47] LABS: HCO3 46.9 mmol/L (21-28); PCO2 74 mmHg (32-35)
--- NOTE | 2024-10-03 04:52 | PTCARENOTE ---
House provider, Concetta Back, notified of critical ABG values pCO2= 74 and HCO3= 46.9. Pt is AAOx3 and says she feels fine. VSS. No new orders at this time.
[2024-10-03 04:58] LABS: ALT (SGPT) < 10 U/L (0-35); AST (SGOT) 22 U/L (14-36); Albumin 3.5 g/dl (3.5-5.0); Alkaline Phosphatase 80 U/L (38-126); Blood Urea Nitrogen 52 mg/dl (7-17); Calcium 8.8 mg/dl (8.4-10.2); Chloride 89 mmol/L (98-107); Estimated Creatinine Clearance 28 ml/min; Glucose 103 mg/dl (70-99); Potassium 3.7 mmol/L (3.5-5.1); Sodium 139 mmol/L (135-145); Total Bilirubin 0.9 mg/dl (0.2-1.3); Total Protein 6.3 g/dl (6.3-8.2); eGFR 43.69
[2024-10-03 05:30] LABS: TSH 4.05 uIU/ml (0.47-4.68)
[2024-10-03 06:49] LABS: Carbon Dioxide 35 mmol/L (22-30)
[2024-10-03] MEDS: VENTOLIN NEBULES 2.5 MG INH ×3 (07:20→19:29)
[2024-10-03] MEDS: SYMBICORT 160/4.5 MCG INHALER 2 PUFF INH ×2 (07:20→19:28)
[2024-10-03] MEDS: SPIRIVA RESPIMAT 2.5 MCG 2 PUFF INH (07:20)
[2024-10-03] MEDS: NOVOLOG FLEXPEN-LOW RESISTANCE SC ×2 (09:06→17:12)
[2024-10-03] MEDS: LOW STRENGTH ASPIRIN 81 MG PO (09:07)
[2024-10-03] MEDS: THERAGRAN 1 TABLET PO (09:07)
[2024-10-03] MEDS: LEXAPRO 20 MG PO (09:07)
[2024-10-03] MEDS: HEPARIN 5000 UNITS SC ×2 (09:07→20:02)
[2024-10-03] MEDS: LASIX 40 MG IV (09:08)
[2024-10-03] MEDS: TOPROL XL 100 MG PO (09:08)
--- NOTE | 2024-10-03 09:16 | W.PN.CARDCBS ---
Today's Communication / Plan
-
RECOMMENDATIONS:
-Continue diuresis
-Will follow.
-Will change furosemide to once daily. Not sure she will tolerate aggressive diuresis well.
Impression / Plan
-
PCP: Dr. Hernandez
Pulm: Dr. Garcia
Card: scheduled to see Dr. Connolly as a new patient 10/06/24
This is a 74-year-old female with a past medical history notable for severe underlying COPD and was initiated on home oxygen therapy in June 2024. Additional history includes hypertension and hyperlipidemia. Long history of tobacco abuse. A
chest CT scan from 07/22/2024 was notable for a 1.4 cm pleural-based parenchymal opacity in the anterior right upper lobe with recommended PET scan
.
She was evaluated by Dr. Katlin Garcia on 08/06/2024 for evaluation of shortness of breath and was found to have O2 saturations in the 60s on room air and required 10 L of O2 with ambulation to maintain O2 levels above 90%. Hospitalization was
discussed with the patient at that time which she refused. The patient had reported that her shortness of breath had been worsening over several years. She has refused hospitalization after her office visit with Dr. Garcia. She was seen on a second
occasion by Dr. Garcia on 10/01/2024. Troponin is mildly elevated 0.064 ng/ml
Impression:
Admitted with multifactorial SOB 10/01/2024
Acute hypoxemic respiratory failure, multifactorial
Elevated troponin
Suspected right heart failure
Severe pulmonary hypertension
COPD, stage IV
Former smoker
Weight loss
Spiculated pleural-based nodule in the anterior right upper lobe on CT chest 10/01/2024
-10/01/2024: CT chest: Spiculated pleural-based nodule in the anterior right upper lobe
-08/21/2024: Echo: LV: EF 70-75%. Flattened septum consistent with RV pressure/volume overload with D-shaped septum. RV: Dilated, LA: Normal, RA: Normal, MV: No MR, AV: Calcified AV with trace AI, TV: Severe TR with severe pulmonary hypertension
and estimated PAP 85-90 mmHg
-08/06/2024: PFT: FEV1: 0.69 (40%), FVC: 1.49 (64%). Findings were consistent with severe obstruction and mild restrictive lung disease
-07/22/2024: CT chest: Soft tissue fullness in the hilar region suggest at least mild hilar adenopathy with mild mediastinal adenopathy. There is a 1.4 cm based parenchymal opacity in the right upper lobe. Recommended PET.
Plan:
-Continue IV diuresis but will change furosemide to once daily as I am not she will tolerate aggressive diuresis with bid dosing
-Continue aspirin 81 mg daily
-Could consider adding SGLT2 in future
-Troponin elevation: NON-MA troponin elevation. I would be fairly conservative in evaluation given pulmonary mass and really high O2 requirements
-May consider right heart catheterization at some point but would continue diuresis for now. Doubtful there is anything truly reversible re: pulmonary status
Progress Note - Education Reporter
Subjective
Date of Service: October 03, 2024
Still requiring high flow O2
Objective
Labs:
10/03/24 04:04
10/03/24 04:04
Labs
Hgb 10.5 g/dL (12.0-16.0) L 10/03/24 04:04
Hct 33.5 % (37.0-47.0) L 10/03/24 04:04
Plt Count 186 10^3/uL (130-400) 10/03/24 04:04
Sodium 139 mmol/L (135-145) 10/03/24 04:04
Potassium 3.7 mmol/L (3.5-5.1) 10/03/24 04:04
BUN 52 mg/dl (7-17) H 10/03/24 04:04
Creatinine 1.3 mg/dL (0.6-1.0) H 10/03/24 04:04
Glucose 103 mg/dl (70-99) H 10/03/24 04:04
Troponins
10/01/24
12:44
Troponin I 0.064 H*
Vital Signs and I&O:
Vital Signs
Temp Pulse Resp BP Pulse Ox
97.9 F 71 16 112/61 95
10/03/24 04:00 10/03/24 09:08 10/03/24 07:24 10/03/24 09:08 10/03/24 07:37
Vital Signs
Temp Pulse Resp BP Pulse Ox
97.9 F 71 16 112/61 95
10/03/24 04:00 10/03/24 09:08 10/03/24 07:24 10/03/24 09:08 10/03/24 07:37
Intake & Output
09/30/24 10/01/24 10/02/24 10/03/24
23:59 23:59 23:59 23:59
Output Total 600 / 600
Balance -600 / -600
Physical Exam
Physical Exam
Gen: Sick appearing female lying in bed on high flow O2
HEENT: NC/AT, sclera anicteric, High flow O2 in place
Lungs: Reasonable air movement No wheezing
CV: Reg
Ext: No edema
[2024-10-03 09:17] LABS: Glucose - Point of Care 114 mg/dl (70-99)
--- NOTE | 2024-10-03 10:14 | W.PN.PUL3 ---
Addendum entered and electronically signed by Mitchel Márquez MD 10/03/24 13:42:
If continues to deteriorate and RHC still not available, may consider inhaled Epoprostenol vie HFO, will need transfer to ICU with arterial line at that time.
Will continue to monitor closely.
Original Note:
Today's Communication / Plan
-
Continue IV diuresis as able
Continue inhaler therapy
No indication for corticosteroids
Will attempt to start BiPAP at some point during this hospital stay(need to wait until oxygenation improved) with bedtime and naps.
Monitor electrolytes and creatinine
Wean down FiO2 as able currently 80% 55 L
Assessment
-
74-year-old woman with past medical history noted, advanced COPD with chronic hypoxemic respiratory failure. Here for evaluation of worsening hypoxemia requiring up to high flow oxygen. CT chest without pulmonary embolism or significant
parenchymal lung abnormalities. Prior echocardiogram in mid August 2024 showed severe pulmonary hypertension. We were consulted on 10/02/2024 for evaluation
Acute hypoxemic respiratory failure requiring up to high flow oxygen.
proBNP 18,800/mild troponin leak
Likely due to RV failure with severe pulmonary hypertension based on echocardiogram 08/21/2020
CT chest 10/01/2024: No evidence for pulmonary embolism. Spiculated pleural-based nodule in the anterior right upper lobe stable. Mild bilateral hilar and mediastinal lymphadenopathy.
Lung nodule 1.4X 0.8 cm pleural-based, spiculated, noncalcified right upper lobe-present since 07/2024.
PET scan recommended the patient did not follow through.
Condition present prior admission
Severe COPD: Chronic hypoxemic respiratory failure
Follows with Dr. Garcia last appointment 08/06/2024
Spirometry 08/06/2024: FEV1 0.69 L or 40%, ratio 46%.
Worsening hypoxemic respiratory failure: On 08/06/2024 recommended to go to the emergency room and obtain echo echocardiogram
On JHONATAN
Former smoker [id number] history.
Possible obstructive sleep apnea
Pulmonary nodule 1.4 pleural-based irregular parenchymal opacity in the right upper lobe-PET scan was recommended.
CT chest 07/22/2024: Coarse interstitial markings seen bilaterally, diffuse. Upper lobe predominant. Hyperinflation. Prominent pulmonary artery. 1.4 pleural-based irregular parenchymal opacity on the right upper lobe.
50 pound weight loss over the last 3 to 4 years.
Hyperlipidemia
history of psoriasis-treated with topical medical
Type 2 diabetes
Back surgery in the
Echocardiogram 08/21/2024: Reviewed, showed small left ventricular size. Hyperdynamic. Ejection fraction 70 to 75%. Flattened septum in systole consistent with RV pressure overload. Enlarged right ventricular size. Normal right ventricular
systolic function.
Severe TR. Severe pulmonary hypertension pressure 85 to 90 mmHg.
Assessment and plan:
Severe hypoxemia due to likely chronic pulmonary hypertension: Multiple mechanisms, possibly cor pulmonale from underlying lung disease, chronic hypercapnic respiratory failure untreated, cannot rule out heart failure with preserved ejection
fraction'
Unclear if there is a component of pulmonary arterial hypertension.
CT chest noted with emphysema. There is no interstitial lung disease per right upper lobe small pulmonary nodule.
PET scan has been recommended in the past-this was ordered by primary care. Is still pending. I will have my office follow-up on status of the order.
-
Patient does report exposures to weight loss medications 30 to 40 years ago. She does not recall the names.
-
Remains on high flow oxygen 80% FiO2, 55 L. Maintain pulse ox above 90%.
Dyspneic with activity. Able to sustain a conversation.
-
Continue COPD regimen:
Was supposed to be on bREZTRI in the outpatient setting-will start Spiriva/Symbicort while in the hospital.
May need to consider transition to nebulized regimen.
There is no evidence for acute exacerbation-not bronchospastic on exam
No indication for systemic corticosteroids-not bronchospastic on exam.
-
IV diuresis-discussed with cardiology will back down slightly on IV diuresis as creatinine has bumped.
Follow electrolytes and renal function
Cardiology correspondence reviewed.
-
There is no evidence for pulmonary embolism on CAT scan this admission
Liver function testing is normal.
Renal function is relatively normal
C-reactive protein is slightly elevated 10.2.
Normal TSH
VERITO-pending. Suspicion for connective tissue disease associated pulmonary hypertension is less likely.
-
ABG 10/03/2024: 7.41/70/62(on high flow oxygen) Chronic hypercapnic respiratory failure-compensated. This is also likely contributing to her pulmonary hypertension as it is untreated.
Mental status baseline. Alert, cooperative.
Avoid sedatives.
Suspect due to underlying advanced COPD.
Hopefully as oxygen requirements improved can start nocturnal BiPAP while in the hospital 08/07.
She has been recommended to undergo a sleep study but has not been able to do it.
There is suspicion for obstructive sleep apnea.
-
Her weight loss over time may be from pulmonary cachexia.
Nutritional support
Aspiration precautions
-
Ultimately may need cardiac catheterization depending on clinical situation. Rule out pulmonary arterial hypertension.
If there is pulmonary arterial hypertension will be a difficult situation with underlying severe COPD. Pulmonary vasodilators in this patient's may trigger paradoxical worsening hypoxemia.
If this is confirmed may need to consider tertiary care Medical Center with a pulmonary hypertension center. This could be discussed in the outpatient setting hopefully after she stabilizes and we have ruled out other etiologies
-
DVT prophylaxis with heparin subcu.
-
Will follow
-
Dr. Lyon updated and patient in detail on 10/02/2024.
-
DNR status
Prognosis is guarded
-
Outpatient follow-up with Dr. Garcia after discharge.
Subjective Data
-
Date of Service:
Date of Service: October 03, 2024
Chief Complaint: Pulmonary Follow Up (Hypoxemic respiratory failure/pulmonary hypertension)
Subjective:
Remains on oxygen for mentation
Continues to report shortness of breath with activity
Denies chest pain
Denies lightheadedness
Denies significant increase in cough or wheezing
Review of Systems
Cardiopulmonary: Dyspnea on Exertion
GI: Abdominal Pain (n) and Nausea (n)
Objective Data
Data Reviewed
Vital Signs / I&O / Oxygen:
Vital Signs
Temp Pulse Resp BP Pulse Ox
97.9 F 71 16 112/61 95
10/03/24 04:00 10/03/24 09:08 10/03/24 07:24 10/03/24 09:08 10/03/24 07:37
Intake and Output
10/02/24 10/03/24 10/04/24
06:59 06:59 06:59
Output Total 600 / 600
Balance -600 / -600
SaO2 95
Nasal Cannula flow liters per 50
minute
Physical Exam
General: Comfortable
HEENT: Normocephalic
Cardiovascular: S1-S2
Respiratory: Non-Labored Respirations and Other (Diminished breath sounds bilateral)
GI: Soft and Non Distended
Neurology: Awake, Alert, AO x 3 and No Motor Deficits
Skin: Warm
Labs/Micro/Reports
Lab Data
10/03/24 04:04
10/03/24 04:04
Laboratory Results
10/03/24
04:22
pH 7.41
pCO2 74 H*
pO2 62 L
HCO3 46.9 H*
O2 Delivery Level on oxygen
[2024-10-03] MEDS: AMOXIL 1000 MG PO ×2 (10:40→20:03)
[2024-10-03 11:48] LABS: Glucose - Point of Care 219 mg/dl (70-99)
--- NOTE | 2024-10-03 12:28 | CM ---
Patient with Hx COPD with Dx HF. High flow/HFNC O2. Receiving IV Lasix, PO Abx. Per nurse assessment; requires assist of 2.
Met with patient who resides with her in a 1 story house with 1 JOEY.
The patient was independent in ADLs and ambulation and mostly home bound with assisting as needed.
She felt unstable ambulating recently and began using her cane. Patient denies any falls.
DME - [facility], w/c, nebulizer, home O2 two 10-liter concentrators to provide 15L O2 and portable tanks, through [facility] [employer]
VN - prior [facility] - does not want again
SNF - prior [facility] - will not go there again
PCP - Eduar Hernandez
Pharmacy - [facility]
Patient is hoping to go home at d/c. Discussed that she will benefit from PT here when medically stabilized, to determine her d/c needs. Patient says she will want [facility] at discharge, as her sister was a [facility] [employer] Skinner.
Patient has one son Leonidas, and who assists her. She is unsure if she would want to have a private pay caregiver.
Plan request PT/OT when medically less acute.
Plan TBD.
[2024-10-03] MEDS: NOVOLOG FLEXPEN-LOW RESISTANCE 2 UNITS SC (12:42)
--- NOTE | 2024-10-03 15:11 | W.PN.HOSP.TC ---
Addendum entered and electronically signed by Rasta Orourke MD 10/03/24 17:22:
Rise in creatinine only - reduce lasix dosing
Original Note:
Today's Communication/Plan
-
wean o2 as tolerated
diuresis
Hopefully will receive RHC soon; Next steps are to initiate Flolan
Assessment / Plan
Assessment / Plan
GEN: NAD. AAOx3
HEENT: EOMI, MMM
LUNGS: high flow. Rales without wheeze
CV: SR on tele. Reg, no murmur
ABD: soft, BS+, NT, ND
EXT: No edema B/L
NEURO: Gross non-focal
SKIN: No rash
# Hypoxemic respiratory failure secondary to right heart failure secondary to severe pulmonary hypertension/tricuspid regurgitation + Acute HFpEF
-Bilateral crackles on examination
-Patient currently on high flow
-Recent echo shows hyperdynamic LV with EF of 70 to 75%, flattened septum, RV overload, severe tricuspid regurgitation, severe pulmonary hypertension
-Strict I's and O's, daily weights
-Given IV fluids so stop fluids
-Lasix 40 IV reduced to daily - monitor bmp
-Cardiology consulted
-Pulmonary consulted
-wean o2 as tolerated; goal o2 >88%
-Hopefully will receive RHC soon; Next steps are to initiate Flolan
COPD
-was not on oxygen until July
-Continue albuterol
Recent sinus infection
-Continue amoxicillin for 2 more days
Essential hypertension
-Continue metoprolol
-Hold lisinopril, hydrochlorothiazide to avoid hypotension during diuresis
Hyperlipidemia
-Continue statin
Type 2 diabetes
-Hold metformin
-Insulin sliding scale
Obesity
Anxiety/depression
-Continue Lexapro
#Elevated troponin
Nonischemic myocardial injury secondary to acute HFpEF, pulm hypertension
� No chest pain
Spiculated pleural-based nodule in the anterior right upper lobe for which PET imaging is recommended.
Former smoker
DNR/DNI
DVT prophylaxis�heparin
Cardiac diet
Total time spent on today's encounter was 50 minutes which included time spent in counseling the patient/family regarding diagnosis and treatment plan as listed above, goals of care, and symptom management. Case was discussed with nursing staff,
specialists, and care coordinators/case management. All labs and imaging personally reviewed by me. Remainder the time spent in detailed review of previous records, lab data, imaging, and other medical provider documentation.
Anticipated Discharge: Within 24 hours
Subjective/Interval History
-
Date of Service: October 03, 2024
still requiring high levels of HFNC
Objective Data
-
Labs:
Laboratory Results
10/03/24 10/03/24
04:04 04:22
WBC 9.4
Hgb 10.5 L
Hct 33.5 L
Plt Count 186
HCO3 46.9 H*
Sodium 139
Potassium 3.7
Chloride 89 L
Carbon Dioxide 35 H
BUN 52 H
Creatinine 1.3 H
Glucose 103 H
Calcium 8.8
Total Bilirubin 0.9
AST 22
ALT < 10
Alkaline Phosphatase 80
Vital Signs:
Vital Signs
Temp Pulse Resp BP Pulse Ox
98.4 F 67 16 107/61 94
10/03/24 11:21 10/03/24 12:00 10/03/24 12:00 10/03/24 12:00 10/03/24 12:00
I&O
10/02/24 10/03/24 10/04/24
06:59 06:59 06:59
Intake Total 480 / 480
Output Total 600 / 600
Balance -600 / -600 480 / 480
Review of Systems
-
History Source: Patient
All other systems: Not reviewed unless documented
Data Reviewed
-
Labs: Labs Reviewed by me
--- NOTE | 2024-10-03 15:12 | PTCARENOTE ---
Patient AOx3. Patient on 55L 100% HFNC and utilizes NRB PRN to keep SpO2 88-90%. COVINGTON. NSR with prolonged QT on monitor. Patient incontinent to urine. Purewick in place draining yellow urine. Psoriasis throughout entire body. Call estrada within reach,
bed in lowest position, and bed of wheels locked.
--- NOTE | 2024-10-03 16:23 | PN.CDI ---
CDI
- -
CDI:
Physician Documentation Request
Admit Date: 10/01/24 19:42
Dear Doctor Sharad,
Clinical Indicators:
Patient admitted with right heart failure & acute HFpEF.
Patient receiving IV Lasix
Cr/GFR trend:
10/01/24 10/02/24 10/03/24
12:44 04:20 04:04
Creatinine 1.0 1.1 H 1.3 H
eGFR 59.86 53.39 43.69
Please clarify which of the following accurately represents the patient's renal status:
PARUL
Rise in creatinine only
Other, please specify
Criteria for PARUL*
1 Increase in serum creatinine by > or = to 0.3 mg/dL (> or = to 26.5 micromol/L) within 48 hours, OR
2 Increase in serum creatinine to > or = to 1.5 times baseline, which is known or presumed to have occurred within 7 days, OR
3 Urine volume < 0.5 nL/kg/hour for six hours
Stages of Chronic Kidney Disease*
Level Description GFR
G1 Normal or High >90
G2 Mildly decreased 60-89
G3a Mildly to moderately decreased 45-59
G3b Moderately to severely decreased 30-44
G4 Severely decreased 15-29
G5 Kidney failure <15
Use of terms such as suspected, likely, concern for, or probable (associated with a specific diagnosis that is being evaluated, monitored, or treated as if it exists) are acceptable and can be coded in the inpatient setting, when documented at the
time of discharge.
Thank you,
Isha Samaniego RN BSN
CDI Specialist
available via tiger text
Please use your independent medical judgment in providing your response.
*Source: Kidney Disease: Improving Global Outcomes (KDIGO) 2012
[2024-10-03 16:59] LABS: Glucose - Point of Care 126 mg/dl (70-99)
[2024-10-03] MEDS: LIPITOR 40 MG PO (20:03)
[2024-10-03 21:32] LABS: Glucose - Point of Care 140 mg/dl (70-99)
[2024-10-04] VITALS (11 sets, daily range): BP systolic 84–122; BP diastolic 49–71; BMI 18.7
--- NOTE | 2024-10-04 03:14 | PTCARENOTE ---
Addendum entered by Diamond Alcazar RN 10/04/24 03:23:
Pt reports having issues with constipation and is requesting medication to assist with having a BM. Reached out to [facility] for PRN miralax.
Original Note:
Assumed care for patient overnight. Pt AAOx3. NSR with PAC's on tele. Pt is 98% on HFNC, RT bedside attempted to wean, pt desatting to 88% and unable to recover, RT bumped pt back up. Pt expressed concerns regarding regaining mobility. Pt
incontinent of urine purewick exchanged and perineal care done. Oral hygiene done. Moisture barrier put on buttocks and perineal area. Pt appears to be resting comfortably in bed. Call estrada is within reach.
[2024-10-04 04:53] LABS: Hematocrit 33.4 % (37.0-47.0); Hemoglobin 10.5 g/dL (12.0-16.0); Mean Corp Hgb Conc. 31.4 g/dL (33.0-37.0); Mean Corpuscular Hgb 31.6 pg (27.0-31.0); Mean Corpuscular Volume 100.6 fL (81.0-99.0); Mean Platelet Volume 10.5 fL (7.4-10.4); Platelet Count 191 10^3/uL (130-400); Red Blood Cell Count 3.32 10^6/uL (4.20-5.40); Red Cell Dist. Width 15.2 % (11.5-14.5); White Blood Cell Count 9.6 10^3/uL (4.8-10.8)
[2024-10-04 05:13] LABS: ALT (SGPT) < 10 U/L (0-35); AST (SGOT) 20 U/L (14-36); Albumin 3.2 g/dl (3.5-5.0); Alkaline Phosphatase 80 U/L (38-126); Blood Urea Nitrogen 60 mg/dl (7-17); Calcium 8.8 mg/dl (8.4-10.2); Chloride 87 mmol/L (98-107); Estimated Creatinine Clearance 26 ml/min; Glucose 142 mg/dl (70-99); Potassium 3.7 mmol/L (3.5-5.1); Sodium 138 mmol/L (135-145); eGFR 39.97
[2024-10-04 05:34] LABS: Carbon Dioxide 37 mmol/L (22-30)
[2024-10-04] MEDS: TYLENOL 650 MG PO ×2 (06:17→22:42)
[2024-10-04] MEDS: MIRALAX 17 GRAMS PO (06:17)
[2024-10-04] MEDS: SYMBICORT 160/4.5 MCG INHALER 2 PUFF INH ×2 (08:07→19:42)
[2024-10-04] MEDS: SPIRIVA RESPIMAT 2.5 MCG 2 PUFF INH (08:07)
[2024-10-04] MEDS: VENTOLIN NEBULES 2.5 MG INH ×2 (08:08→19:42)
[2024-10-04 08:20] LABS: Glucose - Point of Care 130 mg/dl (70-99)
[2024-10-04] MEDS: NOVOLOG FLEXPEN-LOW RESISTANCE SC ×2 (08:51→17:50)
[2024-10-04] MEDS: HEPARIN 5000 UNITS SC ×2 (08:52→20:11)
[2024-10-04] MEDS: LEXAPRO 20 MG PO (08:53)
[2024-10-04] MEDS: LOW STRENGTH ASPIRIN 81 MG PO (08:53)
[2024-10-04] MEDS: LASIX 40 MG IV (08:53)
[2024-10-04] MEDS: THERAGRAN 1 TABLET PO (08:53)
[2024-10-04] MEDS: TOPROL XL 100 MG PO (08:53)
[2024-10-04] MEDS: AMOXIL 1000 MG PO ×2 (08:53→20:11)
[2024-10-04 12:55] LABS: Glucose - Point of Care 154 mg/dl (70-99)
--- NOTE | 2024-10-04 13:05 | W.PN.CARDCBS ---
Today's Communication / Plan
-
Check proBNP level
Continue current dose of diuretic
Follow labs
Await pulmonary opinion
Long discussion with patient as documented
Impression / Plan
-
PCP: Dr. Hernandez
Pulm: Dr. Garcia
Card: scheduled to see Dr. Connolly as a new patient 10/06/24
Impression:
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
Admitted with multifactorial SOB 10/01/2024
Acute hypoxemic respiratory failure, multifactorial
Elevated troponin
Right heart failure
Heart failure preserved ejection fraction
COPD, stage IV
Former smoker
Weight loss
Spiculated pleural-based nodule in the anterior right upper lobe on CT chest 10/01/2024
-10/01/2024: CT chest: Spiculated pleural-based nodule in the anterior right upper lobe
-08/21/2024: Echo: LV: EF 70-75%. Flattened septum consistent with RV pressure/volume overload with D-shaped septum. RV: Dilated, LA: Normal, RA: Normal, MV: No MR, AV: Calcified AV with trace AI, TV: Severe TR with severe pulmonary hypertension
and estimated PAP 85-90 mmHg
-08/06/2024: PFT: FEV1: 0.69 (40%), FVC: 1.49 (64%). Findings were consistent with severe obstruction and mild restrictive lung disease
-07/22/2024: CT chest: Soft tissue fullness in the hilar region suggest at least mild hilar adenopathy with mild mediastinal adenopathy. There is a 1.4 cm based parenchymal opacity in the right upper lobe. Recommended PET.
Plan:
In discussion with patient she has had severe shortness of breath for at least 1 year recently started on oxygen by primary care provider. Then seen by pulmonary and needed increased oxygen given that on 4 L of oxygen pulse ox was low. In addition
she has a spiculated density for which PET scan has been recommended. There is no family history of pulmonary arterial hypertension. She has no history of rheumatologic conditions or pulmonary emboli/DVT. She stopped smoking about 10 years ago by
report but has progressively worsened. She continues to require 15 L of oxygen. There is question as to whether medication treatment for pulmonary arterial hypertension is indicated. On admission proBNP level was greater than 18,000 consistent
with heart failure with preserved ejection fraction. Her weight has decreased from 103 pounds to 95 pounds with increase in creatinine. I discussed with patient at great length that pulmonary hypertension may be secondary to underlying lung disease
and volume as opposed to a separate process that would benefit from treatment. In addition I explained that treatment of pulmonary hypertension may not reverse oxygen requirements. In addition I did discuss that right heart cath is high risk given
current status.
For respiratory failure and concomitant pulmonary hypertension:
-I discussed with patient at great length that pulmonary hypertension may be secondary to underlying lung disease and volume as opposed to a separate process that would benefit from treatment.
-In addition I explained that treatment of pulmonary hypertension may not reverse oxygen requirements.
-I did discuss that right heart cath is high risk given current status.
-Have also discussed with pulmonary and if they feel that severe underlying COPD is not alone (with volume overload) responsible for this degree of oxygen requirement and pulmonary hypertension by echo we could proceed with right heart cath on
Sunday at high risk.
Pulmonary nodule
-It is possible that nodule may be contributing to illness if cancer is detected
Right heart failure and heart failure with preserved ejection fraction
-Continue IV diuresis
-Follow creatinine
-Could consider adding SGLT2 in future
-I will also reassess proBNP in the morning and if remains elevated could consider low-dose dobutamine to assist with forward flow. This would be a temporizing measure.
Troponin elevation: Non-AL troponin elevation.
-Continue conservative treatment given degree of illness otherwise.
I have spent 53 minutes [id number] and diz-[id number]-[id number]-face time in discussion, review of records, review of outside sales consultant notes and in discussion with peers
This is a 74-year-old female with a past medical history notable for severe underlying COPD and was initiated on home oxygen therapy in June 2024. Additional history includes hypertension and hyperlipidemia. Long history of tobacco abuse. A
chest CT scan from 07/22/2024 was notable for a 1.4 cm pleural-based parenchymal opacity in the anterior right upper lobe with recommended PET scan
.
She was evaluated by Dr. Katlin Garcia on 08/06/2024 for evaluation of shortness of breath and was found to have O2 saturations in the 60s on room air and required 10 L of O2 with ambulation to maintain O2 levels above 90%. Hospitalization was
discussed with the patient at that time which she refused. The patient had reported that her shortness of breath had been worsening over several years. She has refused hospitalization after her office visit with Dr. Garcia. She was seen on a second
occasion by Dr. Garcia on 10/01/2024. Troponin is mildly elevated 0.064 ng/ml
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
Subjective
Date of Service: October 04, 2024
She is short of breath but denies chest pain and palpitations.
Objective
Labs:
10/04/24 04:25
10/04/24 04:25
Labs
Hgb 10.5 g/dL (12.0-16.0) L 10/04/24 04:25
Hct 33.4 % (37.0-47.0) L 10/04/24 04:25
Plt Count 191 10^3/uL (130-400) 10/04/24 04:25
Sodium 138 mmol/L (135-145) 10/04/24 04:25
Potassium 3.7 mmol/L (3.5-5.1) 10/04/24 04:25
BUN 60 mg/dl (7-17) H 10/04/24 04:25
Creatinine 1.4 mg/dL (0.6-1.0) H 10/04/24 04:25
Glucose 142 mg/dl (70-99) H 10/04/24 04:25
Troponins
10/01/24
12:44
Troponin I 0.064 H*
Vital Signs and I&O:
Vital Signs
Temp Pulse Resp BP Pulse Ox
97.6 F 74 21 108/62 100
10/04/24 11:00 10/04/24 12:10 10/04/24 12:10 10/04/24 12:10 10/04/24 10:00
Vital Signs
Temp Pulse Resp BP Pulse Ox
97.6 F 74 21 108/62 100
10/04/24 11:00 10/04/24 12:10 10/04/24 12:10 10/04/24 12:10 10/04/24 10:00
Intake & Output
10/02/24 10/03/24 10/04/24 10/05/24
06:59 06:59 06:59 06:59
Intake Total 480 / 480
Output Total 600 / 600 550 / 550
Balance -600 / -600 -70 / -70
Physical Exam
Physical Exam
General: Chronically ill-appearing woma
Heart: Distant heart sounds
Lungs: High flow oxygen wheeze, rhonchi, rubs bilaterally,
normal expiratory phase.
Extremities: No clubbing, cyanosis or edema bilaterally.
Neuro: Grossly nonfocal, awake, alert and oriented x3.
[2024-10-04] MEDS: NOVOLOG FLEXPEN-LOW RESISTANCE 1 UNITS SC (14:32)
--- NOTE | 2024-10-04 14:44 | W.PN.HOSP.TC ---
Today's Communication/Plan
-
cont diuresis - monitor bmp closely
await recs on RHC
Assessment / Plan
Assessment / Plan
GEN: NAD. AAOx3
HEENT: EOMI, MMM
LUNGS: high flow. Rales without wheeze
CV: SR on tele. Reg, no murmur
ABD: soft, BS+, NT, ND
EXT: No edema B/L
NEURO: Gross non-focal
SKIN: No rash
# Hypoxemic respiratory failure secondary to right heart failure secondary to severe pulmonary hypertension/tricuspid regurgitation + Acute HFpEF
-Bilateral crackles on examination
-Patient currently on high flow
-Recent echo shows hyperdynamic LV with EF of 70 to 75%, flattened septum, RV overload, severe tricuspid regurgitation, severe pulmonary hypertension
-Strict I's and O's, daily weights
-Given IV fluids so stop fluids
-Lasix 40 IV reduced to daily - monitor bmp
-Cardiology consulted
-Pulmonary consulted
-wean o2 as tolerated; goal o2 >88%
-Hopefully will receive RHC soon; Next steps are to initiate Flolan
COPD
-was not on oxygen until July
-Continue albuterol
Recent sinus infection
-Continue amoxicillin for 2 more days
Essential hypertension
-Continue metoprolol
-Hold lisinopril, hydrochlorothiazide to avoid hypotension during diuresis
Hyperlipidemia
-Continue statin
Type 2 diabetes
-Hold metformin
-Insulin sliding scale
Obesity
Anxiety/depression
-Continue Lexapro
#Elevated troponin
Nonischemic myocardial injury secondary to acute HFpEF, pulm hypertension
� No chest pain
Spiculated pleural-based nodule in the anterior right upper lobe for which PET imaging is recommended.
Former smoker
DNR/DNI
DVT prophylaxis�heparin
Cardiac diet
Total time spent on today's encounter was 51 minutes which included time spent in counseling the patient/family regarding diagnosis and treatment plan as listed above, goals of care, and symptom management. Case was discussed with nursing staff,
specialists, and care coordinators/case management. All labs and imaging personally reviewed by me. Remainder the time spent in detailed review of previous records, lab data, imaging, and other medical provider documentation.
Anticipated Discharge: > 48 hours
Subjective/Interval History
-
Date of Service: October 04, 2024
no acute changes overnight
Objective Data
-
Labs:
Laboratory Results
10/04/24
04:25
WBC 9.6
Hgb 10.5 L
Hct 33.4 L
Plt Count 191
Sodium 138
Potassium 3.7
Chloride 87 L
Carbon Dioxide 37 H
BUN 60 H
Creatinine 1.4 H
Glucose 142 H
Calcium 8.8
Total Bilirubin 1.0
AST 20
ALT < 10
Alkaline Phosphatase 80
Vital Signs:
Vital Signs
Temp Pulse Resp BP Pulse Ox
97.6 F 74 21 108/62 83
10/04/24 11:00 10/04/24 12:10 10/04/24 12:10 10/04/24 12:10 10/04/24 13:09
I&O
10/03/24 10/04/24 10/05/24
06:59 06:59 06:59
Intake Total 480 / 480
Output Total 550 / 550
Balance -70 / -70
Review of Systems
-
History Source: Patient
All other systems: Not reviewed unless documented
Data Reviewed
-
CT Scan: Report Reviewed by me
Labs: Labs Reviewed by me
--- NOTE | 2024-10-04 16:34 | W.PN.PUL3 ---
Today's Communication / Plan
-
Agree with right heart catheterization cardiology is agreeable
Reviewed with patient that vasodilator therapy likely not helpful with severe underlying COPD
Our treatment options may be lacking
Lets see what the right heart cath shows
Assessment
-
74-year-old woman with past medical history noted, advanced COPD with chronic hypoxemic respiratory failure. Here for evaluation of worsening hypoxemia requiring up to high flow oxygen. CT chest without pulmonary embolism or significant
parenchymal lung abnormalities. Prior echocardiogram in mid August 2024 showed severe pulmonary hypertension. We were consulted on 10/02/2024 for evaluation
Acute hypoxemic respiratory failure requiring up to high flow oxygen.
proBNP 18,800/mild troponin leak
Likely due to RV failure with severe pulmonary hypertension based on echocardiogram 08/21/[address] chest 10/01/2024: No evidence for pulmonary embolism. Spiculated pleural-based nodule in the anterior right upper lobe stable. Mild bilateral hilar and mediastinal lymphadenopathy.
Lung nodule 1.4X 0.8 cm pleural-based, spiculated, noncalcified right upper lobe-present since 07/2024.
PET scan recommended the patient did not follow through.
Condition present prior admission
Severe COPD: Chronic hypoxemic respiratory failure
Follows with Dr. Garcia last appointment 08/06/2024
Spirometry 08/06/2024: FEV1 0.69 L or 40%, ratio 46%.
Worsening hypoxemic respiratory failure: On 08/06/2024 recommended to go to the emergency room and obtain echo echocardiogram
On BRETRI
Former smoker [id number] history.
Possible obstructive sleep apnea
Pulmonary nodule 1.4 pleural-based irregular parenchymal opacity in the right upper lobe-PET scan was recommended.
CT chest 07/22/2024: Coarse interstitial markings seen bilaterally, diffuse. Upper lobe predominant. Hyperinflation. Prominent pulmonary artery. 1.4 pleural-based irregular parenchymal opacity on the right upper lobe.
50 pound weight loss over the last 3 to 4 years.
Hyperlipidemia
history of psoriasis-treated with topical medical
Type 2 diabetes
Back surgery in the
Echocardiogram 08/21/2024: Reviewed, showed small left ventricular size. Hyperdynamic. Ejection fraction 70 to 75%. Flattened septum in systole consistent with RV pressure overload. Enlarged right ventricular size. Normal right ventricular
systolic function.
Severe TR. Severe pulmonary hypertension pressure 85 to 90 mmHg.
Assessment and plan:
This is a difficult situation
Severe hypoxemia due to likely chronic pulmonary hypertension: Multiple mechanisms, possibly cor pulmonale from underlying lung disease, chronic hypercapnic respiratory failure untreated, cannot rule out heart failure with preserved ejection
fraction'
Unclear if there is a component of pulmonary arterial hypertension.
CT chest noted with emphysema. There is no interstitial lung disease per right upper lobe small pulmonary nodule.
PET scan has been recommended in the past-this was ordered by primary care. Is still pending. I will have my office follow-up on status of the order.
-
Patient does report exposures to weight loss medications 30 to 40 years ago. She does not recall the names.
-
Remains on high flow oxygen 80% FiO2, 55 L. Maintain pulse ox above 90%.
Dyspneic with activity. Able to sustain a conversation.
She desaturates to 86% with sitting up, is asymptomatic on high flow
-
Continue COPD regimen:
Was supposed to be on bREZTRI in the outpatient setting-will start Spiriva/Symbicort while in the hospital.
May need to consider transition to nebulized regimen.
There is no evidence for acute exacerbation-not bronchospastic on exam
No indication for systemic corticosteroids-not bronchospastic on exam.
-
IV diuresis-discussed with cardiology will back down slightly on IV diuresis as creatinine has bumped.
Follow electrolytes and renal function
Cardiology correspondence reviewed.
-
There is no evidence for pulmonary embolism on CAT scan this admission
Liver function testing is normal.
Renal function is relatively normal
C-reactive protein is slightly elevated 10.2.
Normal TSH
VERITO-pending. Suspicion for connective tissue disease associated pulmonary hypertension is less likely.
She will eventually require a VQ scan
-
ABG 10/03/2024: 7.41/70/62(on high flow oxygen) Chronic hypercapnic respiratory failure-compensated. This is also likely contributing to her pulmonary hypertension as it is untreated.
Mental status baseline. Alert, cooperative.
Avoid sedatives.
Suspect due to underlying advanced COPD.
Hopefully as oxygen requirements improved can start nocturnal BiPAP while in the hospital 08/07.
She has been recommended to undergo a sleep study but has not been able to do it.
There is suspicion for obstructive sleep apnea.
-
Her weight loss over time may be from pulmonary cachexia.
Nutritional support
Aspiration precautions
-
I do think that right heart catheterization will be necessary to help determine treatment options
Given her underlying severe COPD, I reviewed with her the treatment options may not be available given the lack of data to support vasodilator therapy in the setting of severe COPD
If there is pulmonary arterial hypertension will be a difficult situation with underlying severe COPD. Pulmonary vasodilators in this patient's may trigger paradoxical worsening hypoxemia.
If this is confirmed may need to consider [facility] with a pulmonary hypertension center. This could be discussed in the outpatient setting hopefully after she stabilizes and we have ruled out other etiologies
-
DVT prophylaxis with heparin subcutaneous
-
Will follow
-
Dr. Lyon updated and patient in detail on 10/02/2024.
I reviewed with and family members at bedside 10/04/2024
-
DNR status
Prognosis is guarded
-
Outpatient follow-up with Dr. Garcia after discharge.
Subjective Data
-
Date of Service:
Date of Service: October 04, 2024
Chief Complaint: Pulmonary Follow Up (Hypoxemic respiratory failure/pulmonary hypertension)
Subjective:
Patient remains on high flow oxygen. She is 89 to 90%. With sitting up, she could not 86%. She is without symptoms. Family at the bedside. Denies nausea, chest pain
Objective Data
Data Reviewed
Vital Signs / I&O / Oxygen:
Vital Signs
Temp Pulse Resp BP Pulse Ox
98.3 F 74 21 108/62 93
10/04/24 15:00 10/04/24 12:10 10/04/24 12:10 10/04/24 12:10 10/04/24 15:56
Intake and Output
10/03/24 10/04/24 10/05/24
06:59 06:59 06:59
Intake Total 480 / 480
Output Total 550 / 550
Balance -70 / -70
SaO2 93
Nasal Cannula flow liters per 50
minute
Physical Exam
General: Comfortable (Cachectic)
HEENT: Normocephalic
Cardiovascular: S1-S2, Regular Rhythm, Murmur (n), Rub (n) and Peripheral Edema (n)
Respiratory: Wheeze (n), Crackles (n), Rhonchi (n), Non-Labored Respirations and Other (Diminished breath sounds bilateral, bronchial)
GI: Soft and Non Distended
Neurology: Awake, Alert and No Motor Deficits (Able to sit up without assistance)
Skin: Warm and Cyanosis (Mild peripheral cyanosis)
Labs/Micro/Reports
Lab Data
10/04/24 04:25
10/04/24 04:25
[2024-10-04 17:23] LABS: Glucose - Point of Care 114 mg/dl (70-99)
--- NOTE | 2024-10-04 19:20 | PTCARENOTE ---
Failed weaning HF O2 today, as sao2 drops to 79-85%. RT notified and resumed 55L / 100% . OOB x5 hours today. Appetite good, +BM today. Voids very small amts- despite IV Lasix. Providers aware.
--- NOTE | 2024-10-04 20:00 | PTCARENOTE ---
Resumed care of pt sitting up in bed AAOx3. HR in the 70's in NSR with prolonged QT on the monitor. POX 92% maxed on Hi flow 55L/100%. Tachypneic, COVINGTON. PRN NRB with activity. Lungs dec t/o. + bowel. Pure wick in place. Trace LE edema, palpable
peripheral pulses present. Psoriasis rash assessed. Pt reports headache, PRN Tylenol administered as ordered. Pt positioned in bed per comfort. Call estrada in reach. Will continue to monitor.
[2024-10-04] MEDS: LIPITOR 40 MG PO (21:33)
[2024-10-04 21:37] LABS: Glucose - Point of Care 100 mg/dl (70-99)
--- NOTE | 2024-10-04 22:00 | PTCARENOTE ---
Pt desaturating while sleeping, pox sustained 86%. NRB mask applied along with hi flow O2. No other changes in assessment noted at this time. Will continue to monitor.
[2024-10-05] VITALS (15 sets, daily range): BP systolic 83–112; BP diastolic 46–64; BMI 18.9
[2024-10-05 04:25] LABS: Hematocrit 33.5 % (37.0-47.0); Hemoglobin 10.5 g/dL (12.0-16.0); Mean Corp Hgb Conc. 31.3 g/dL (33.0-37.0); Mean Corpuscular Hgb 32.2 pg (27.0-31.0); Mean Corpuscular Volume 102.8 fL (81.0-99.0); Platelet Count 191 10^3/uL (130-400); Red Blood Cell Count 3.26 10^6/uL (4.20-5.40); White Blood Cell Count 10.5 10^3/uL (4.8-10.8)
[2024-10-05 04:57] LABS: ALT (SGPT) < 10 U/L (0-35); AST (SGOT) 21 U/L (14-36); Albumin 3.6 g/dl (3.5-5.0); Alkaline Phosphatase 77 U/L (38-126); Blood Urea Nitrogen 71 mg/dl (7-17); Calcium 9.3 mg/dl (8.4-10.2); Chloride 85 mmol/L (98-107); Estimated Creatinine Clearance 19 ml/min; Glucose 133 mg/dl (70-99); Potassium 4.3 mmol/L (3.5-5.1); Sodium 139 mmol/L (135-145); Total Bilirubin 0.9 mg/dl (0.2-1.3); Total Protein 6.7 g/dl (6.3-8.2); eGFR 27.71
[2024-10-05 05:03] LABS: NT-proBNP 21700 pg/ml
[2024-10-05 05:07] LABS: Carbon Dioxide 37 mmol/L (22-30)
[2024-10-05] MEDS: SYMBICORT 160/4.5 MCG INHALER 2 PUFF INH ×2 (07:43→19:31)
[2024-10-05] MEDS: VENTOLIN NEBULES 2.5 MG INH ×3 (07:43→19:34)
[2024-10-05] MEDS: SPIRIVA RESPIMAT 2.5 MCG 2 PUFF INH (07:43)
[2024-10-05] MEDS: NOVOLOG FLEXPEN-LOW RESISTANCE SC ×2 (07:49→12:26)
[2024-10-05] MEDS: TOPROL XL 100 MG PO (07:51)
[2024-10-05] MEDS: AMOXIL 1000 MG PO (07:51)
[2024-10-05] MEDS: LOW STRENGTH ASPIRIN 81 MG PO (07:51)
[2024-10-05] MEDS: LEXAPRO 20 MG PO (07:51)
[2024-10-05] MEDS: LASIX 40 MG IV (07:51)
[2024-10-05] MEDS: THERAGRAN 1 TABLET PO (07:51)
[2024-10-05] MEDS: HEPARIN 5000 UNITS SC ×2 (07:52→20:28)
[2024-10-05 08:00] LABS: Glucose - Point of Care 146 mg/dl (70-99)
[2024-10-05 12:37] LABS: Glucose - Point of Care 111 mg/dl (70-99)
[2024-10-05 13:12] LABS: ANA, IgG Reflex to HEp-2 None Detected (None Detected)
--- NOTE | 2024-10-05 13:15 | W.PN.CARDCBS ---
Today's Communication / Plan
-
-Plan for right heart catheterization tomorrow.
-Given worsening renal function diuretic is now held.
-Follow creatinine
-proBNP remains elevated at 21,700. This places her at high risk status. If right heart cath with increased volume could consider low-dose dobutamine to assist with forward flow. This would be a temporizing measure.
Impression / Plan
-
PCP: Dr. Hernandez
Pulm: Dr. Garcia
Card: scheduled to see Dr. Connolly as a new patient 10/06/24
Impression:
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
High oxygen requirements
Admitted with multifactorial SOB 10/01/2024
Acute hypoxemic respiratory failure, multifactorial
Elevated troponin
Right heart failure
Heart failure preserved ejection fraction
COPD, stage IV
Former smoker
Weight loss
Spiculated pleural-based nodule in the anterior right upper lobe on CT chest 10/01/2024
-10/01/2024: CT chest: Spiculated pleural-based nodule in the anterior right upper lobe
-08/21/2024: Echo: LV: EF 70-75%. Flattened septum consistent with RV pressure/volume overload with D-shaped septum. RV: Dilated, LA: Normal, RA: Normal, MV: No MR, AV: Calcified AV with trace AI, TV: Severe TR with severe pulmonary hypertension
and estimated PAP 85-90 mmHg
-08/06/2024: PFT: FEV1: 0.69 (40%), FVC: 1.49 (64%). Findings were consistent with severe obstruction and mild restrictive lung disease
-07/22/2024: CT chest: Soft tissue fullness in the hilar region suggest at least mild hilar adenopathy with mild mediastinal adenopathy. There is a 1.4 cm based parenchymal opacity in the right upper lobe. Recommended PET.
Plan:
In discussion with patient she has had severe shortness of breath for at least 1 year recently started on oxygen by primary care provider. Then seen by pulmonary and needed increased oxygen given that on 4 L of oxygen pulse ox was low. In addition
she has a spiculated density for which PET scan has been recommended. There is no family history of pulmonary arterial hypertension. She has no history of rheumatologic conditions or pulmonary emboli/DVT. She stopped smoking about 10 years ago by
report but has progressively worsened. She continues to require 15 L of oxygen. There is question as to whether medication treatment for pulmonary arterial hypertension is indicated. On admission proBNP level was greater than 18,000 consistent
with heart failure with preserved ejection fraction. Her weight has decreased from 103 pounds to 96 pounds with increase in creatinine Lasix is now held 10/05/2024. I discussed with patient at great length that pulmonary hypertension may be secondary
to underlying lung disease and volume as opposed to a separate process that would benefit from treatment. In addition I explained that treatment of pulmonary hypertension may not reverse oxygen requirements. In addition I did discuss that right
heart cath is high risk given current status.
For respiratory failure and concomitant pulmonary hypertension:
-Plan for right heart catheterization tomorrow. We discussed the risks and benefits and the higher risk nature given her circumstance. She agrees to proceed.
-Pulmonary is in agreement with proceeding with right heart cath. They also have relayed to the patient that if pulmonary hypertension is secondary to severe underlying lung disease that vasodilator specific therapy is not indicated.
-In addition I explained yesterday and today that treatment of pulmonary hypertension may not reverse oxygen requirements.
-It will be helpful to know her volume status given we are having issues now with worsening renal insufficiency and diuretic has been held.
Pulmonary nodule
-It is possible that nodule may be contributing to illness if cancer is detected
Right heart failure and heart failure with preserved ejection fraction
-Given worsening renal function diuretic is now held.
-Follow creatinine
-Could consider adding SGLT2 in future. Hold for now.
-proBNP remains elevated at 21,700. This places her at high risk status. If right heart cath with increased volumecould consider low-dose dobutamine to assist with forward flow. This would be a temporizing measure.
Troponin elevation: Non-AR troponin elevation.
-Continue conservative treatment given degree of illness otherwise.
She remains in a high risk circumstance.
This is a 74-year-old female with a past medical history notable for severe underlying COPD and was initiated on home oxygen therapy in June 2024. Additional history includes hypertension and hyperlipidemia. Long history of tobacco abuse. A
chest CT scan from 07/22/2024 was notable for a 1.4 cm pleural-based parenchymal opacity in the anterior right upper lobe with recommended PET scan
.
She was evaluated by Dr. Katlin Garcia on 08/06/2024 for evaluation of shortness of breath and was found to have O2 saturations in the 60s on room air and required 10 L of O2 with ambulation to maintain O2 levels above 90%. Hospitalization was
discussed with the patient at that time which she refused. The patient had reported that her shortness of breath had been worsening over several years. She has refused hospitalization after her office visit with Dr. Garcia. She was seen on a second
occasion by Dr. Garcia on 10/01/2024. Troponin is mildly elevated 0.064 ng/ml
Progress Note - Paediatric Physiotherapist
Subjective
Date of Service: October 05, 2024
She is short of breath. No chest pain.
Objective
Labs:
10/05/24 03:58
10/05/24 03:58
Labs
Hgb 10.5 g/dL (12.0-16.0) L 10/05/24 03:58
Hct 33.5 % (37.0-47.0) L 10/05/24 03:58
Plt Count 191 10^3/uL (130-400) 10/05/24 03:58
Sodium 139 mmol/L (135-145) 10/05/24 03:58
Potassium 4.3 mmol/L (3.5-5.1) 10/05/24 03:58
BUN 71 mg/dl (7-17) H 10/05/24 03:58
Creatinine 1.9 mg/dL (0.6-1.0) H 10/05/24 03:58
Glucose 133 mg/dl (70-99) H 10/05/24 03:58
Vital Signs and I&O:
Vital Signs
Temp Pulse Resp BP Pulse Ox
98.3 F 77 18 91/50 93
10/05/24 11:00 10/05/24 12:09 10/05/24 12:09 10/05/24 12:09 10/05/24 12:09
Vital Signs
Temp Pulse Resp BP Pulse Ox
98.3 F 77 18 91/50 93
10/05/24 11:00 10/05/24 12:09 10/05/24 12:09 10/05/24 12:09 10/05/24 12:09
Intake & Output
10/03/24 10/04/24 10/05/24 10/06/24
06:59 06:59 06:59 06:59
Intake Total 480 / 480 620 / 620
Output Total 550 / 550 400 / 400
Balance -70 / -70 220 / 220
Physical Exam
Physical Exam
General: Ill-appearing woman
Neck: JVD 9 cm with positive HJR
Heart: Distant heart sounds
Lungs: High flow oxygen in place coarse breath sounds
Extremities: No clubbing, cyanosis or edema bilaterally.
Neuro: Grossly nonfocal, awake, alert and oriented x3.
--- NOTE | 2024-10-05 14:20 | W.PN.HOSP.TC ---
Today's Communication/Plan
-
hold lasix
RHC tentatively tomorrow
continue o2 therapy
Assessment / Plan
Assessment / Plan
GEN: NAD. AAOx3
HEENT: EOMI, MMM
LUNGS: high flow. Rales without wheeze
CV: SR on tele. Reg, no murmur
ABD: soft, BS+, NT, ND
EXT: No edema B/L
NEURO: Gross non-focal
SKIN: No rash
# Hypoxemic respiratory failure secondary to right heart failure secondary to severe pulmonary hypertension/tricuspid regurgitation + Acute HFpEF
-Bilateral crackles on examination
-Patient currently on high flow
-Recent echo shows hyperdynamic LV with EF of 70 to 75%, flattened septum, RV overload, severe tricuspid regurgitation, severe pulmonary hypertension
-Strict I's and O's, daily weights
-Given IV fluids so stop fluids
-Lasix held due to rising Scr;
-Cardiology consulted
-Pulmonary consulted
-wean o2 as tolerated; goal o2 >88%
-Hopefully will receive RHC soon; Next steps are to initiate inhaled Veletri/Flolan
#PARUL
-hold lasix
-monitor renal function
COPD
-was not on oxygen until July
-Continue albuterol
Recent sinus infection
-Completed course of abx
Essential hypertension
-Continue metoprolol
-Hold lisinopril, hydrochlorothiazide to avoid hypotension during diuresis
Hyperlipidemia
-Continue statin
Type 2 diabetes
-Hold metformin
-Insulin sliding scale
Obesity
Anxiety/depression
-Continue Lexapro
#Elevated troponin
Nonischemic myocardial injury secondary to acute HFpEF, pulm hypertension
� No chest pain
Spiculated pleural-based nodule in the anterior right upper lobe for which PET imaging is recommended.
Former smoker
DNR/DNI
DVT prophylaxis�heparin
Cardiac diet
Total time spent on today's encounter was 53 minutes which included time spent in counseling the patient/family regarding diagnosis and treatment plan as listed above, goals of care, and symptom management. Case was discussed with nursing staff,
specialists, and care coordinators/case management. All labs and imaging personally reviewed by me. Remainder the time spent in detailed review of previous records, lab data, imaging, and other medical provider documentation.
Anticipated Discharge: > 48 hours
Subjective/Interval History
-
Date of Service: October 05, 2024
mid 80s on HFNC, requiring HFNC and NRB
Objective Data
-
Labs:
Laboratory Results
10/05/24
03:58
WBC 10.5
Hgb 10.5 L
Hct 33.5 L
Plt Count 191
Sodium 139
Potassium 4.3
Chloride 85 L
Carbon Dioxide 37 H
BUN 71 H
Creatinine 1.9 H
Glucose 133 H
Calcium 9.3
Total Bilirubin 0.9
AST 21
ALT < 10
Alkaline Phosphatase 77
Vital Signs:
Vital Signs
Temp Pulse Resp BP Pulse Ox
98.3 F 82 28 112/54 88
10/05/24 11:00 10/05/24 14:11 10/05/24 14:11 10/05/24 14:00 10/05/24 14:11
I&O
10/04/24 10/05/24 10/06/24
06:59 06:59 06:59
Intake Total 480 / 480 620 / 620
Output Total 550 / 550 400 / 400
Balance -70 / -70 220 / 220
Review of Systems
-
History Source: Patient
All other systems: Not reviewed unless documented
Data Reviewed
-
CT Scan: Report Reviewed by me
Labs: Labs Reviewed by me
--- NOTE | 2024-10-05 15:03 | W.PN.PUL3 ---
Today's Communication / Plan
-
Continue high flow oxygen/nonrebreather
Diuresis per cardiology
Await right heart cath before any therapy is considered or initiated
Patient aware of poor long-term prognosis given likely WHO Group III
Assessment
-
74-year-old woman with past medical history noted, advanced COPD with chronic hypoxemic respiratory failure. Here for evaluation of worsening hypoxemia requiring up to high flow oxygen. CT chest without pulmonary embolism or significant
parenchymal lung abnormalities. Prior echocardiogram in mid August 2024 showed severe pulmonary hypertension. We were consulted on 10/02/2024 for evaluation
Acute hypoxemic respiratory failure requiring up to high flow oxygen.
proBNP 18,800/mild troponin leak
Likely due to RV failure with severe pulmonary hypertension based on echocardiogram 08/21/2020
[address] chest 10/01/2024: No evidence for pulmonary embolism. Spiculated pleural-based nodule in the anterior right upper lobe stable. Mild bilateral hilar and mediastinal lymphadenopathy.
Lung nodule 1.4X 0.8 cm pleural-based, spiculated, noncalcified right upper lobe-present since 07/2024.
PET scan recommended the patient did not follow through.
Condition present prior admission
Severe COPD: Chronic hypoxemic respiratory failure
Follows with Dr. Garcia last appointment 08/06/2024
Spirometry 08/06/2024: FEV1 0.69 L or 40%, ratio 46%.
Worsening hypoxemic respiratory failure: On 08/06/2024 recommended to go to the emergency room and obtain echo echocardiogram
On BREZTRI
Former smoker 13-ulff-ckty history.
Possible obstructive sleep apnea
Pulmonary nodule 1.4 pleural-based irregular parenchymal opacity in the right upper lobe-PET scan was recommended.
CT chest 07/22/2024: Coarse interstitial markings seen bilaterally, diffuse. Upper lobe predominant. Hyperinflation. Prominent pulmonary artery. 1.4 pleural-based irregular parenchymal opacity on the right upper lobe.
50 pound weight loss over the last 3 to 4 years.
Hyperlipidemia
history of psoriasis-treated with topical medical
Type 2 diabetes
Back surgery in the
Echocardiogram 08/21/2024: Reviewed, showed small left ventricular size. Hyperdynamic. Ejection fraction 70 to 75%. Flattened septum in systole consistent with RV pressure overload. Enlarged right ventricular size. Normal right ventricular
systolic function.
Severe TR. Severe pulmonary hypertension pressure 85 to 90 mmHg.
Assessment and plan:
This is a difficult situation
Severe hypoxemia due to likely chronic pulmonary hypertension: Multiple mechanisms, possibly cor pulmonale from underlying lung disease, chronic hypercapnic respiratory failure untreated, cannot rule out heart failure with preserved ejection
fraction'
Unclear if there is a component of pulmonary arterial hypertension.
Await right heart catheterization in a.m.
Do not think initiation of nebulized iloprost is of any benefit at this time and could potentially skew results from right heart cath
Given her underlying severe COPD, I reviewed with her the treatment options may not be available given the lack of data to support vasodilator therapy in the setting of severe COPD
CT chest noted with emphysema. There is no interstitial lung disease per right upper lobe small pulmonary nodule.
PET scan has been recommended in the past-this was ordered by primary care. Is still pending. I will have my office follow-up on status of the order.
-
Patient does report exposures to weight loss medications 30 to 40 years ago. She does not recall the names.
-
Remains on high flow oxygen 80% FiO2, 55 L. Maintain pulse ox above 90%.
Dyspneic with activity. Able to sustain a conversation.
She desaturates to 86% with sitting up, is asymptomatic on high flow
-
Continue COPD regimen:
Was supposed to be on bREZTRI in the outpatient setting-will start Spiriva/Symbicort while in the hospital.
May need to consider transition to nebulized regimen.
There is no evidence for acute exacerbation-not bronchospastic on exam
No indication for systemic corticosteroids-not bronchospastic on exam.
-
IV diuresis-discussed with cardiology will back down slightly on IV diuresis as creatinine has bumped.
Follow electrolytes and renal function
Cardiology following
-
There is no evidence for pulmonary embolism on CAT scan this admission
Liver function testing is normal.
Renal function is relatively normal
C-reactive protein is slightly elevated 10.2.
Normal TSH
VERITO-pending. Suspicion for connective tissue disease associated pulmonary hypertension is less likely.
She will eventually require a VQ scan
-
ABG 10/03/2024: 7.41/70/62(on high flow oxygen) Chronic hypercapnic respiratory failure-compensated. This is also likely contributing to her pulmonary hypertension as it is untreated.
Mental status baseline. Alert, cooperative.
Avoid sedatives.
Suspect due to underlying advanced COPD.
Hopefully as oxygen requirements improved can start nocturnal BiPAP while in the hospital 08/07.
She has been recommended to undergo a sleep study but has not been able to do it.
There is suspicion for obstructive sleep apnea.
-
Her weight loss over time may be from pulmonary cachexia.
Nutritional support
Aspiration precautions
If there is pulmonary arterial hypertension will be a difficult situation with underlying severe COPD. Pulmonary vasodilators in this patient's may trigger paradoxical worsening hypoxemia.
If this is confirmed may need to consider [facility] with a pulmonary hypertension center. This could be discussed in the outpatient setting hopefully after she stabilizes and we have ruled out other etiologies
-
DVT prophylaxis with heparin subcutaneous
-
Will follow
Reviewed with cardiology on 10/05
-
Dr. Lyon updated and patient in detail on 10/02/2024.
I reviewed with and family members at bedside 10/04/2024
-
DNR status
Prognosis is guarded
-
Outpatient follow-up with Dr. Garcia after discharge.
Subjective Data
-
Date of Service:
Date of Service: October 05, 2024
Chief Complaint: Pulmonary Follow Up (Hypoxemic respiratory failure/pulmonary hypertension)
Subjective:
Asked to see patient emergently this morning due to saturation in the 60s. Upon my arrival, patient had nonrebreather and high flow, 87%. Apparently she had nonrebreather off and was eating her breakfast. She feels she is at her baseline. She
denies chest pain, cough, nausea. She is conversant and speaking in complete sentences
Objective Data
Data Reviewed
Vital Signs / I&O / Oxygen:
Vital Signs
Temp Pulse Resp BP Pulse Ox
98.3 F 82 28 112/54 88
10/05/24 11:00 10/05/24 14:11 10/05/24 14:11 10/05/24 14:00 10/05/24 14:11
Intake and Output
10/04/24 10/05/24 10/06/24
06:59 06:59 06:59
Intake Total 480 / 480 620 / 620
Output Total 550 / 550 400 / 400
Balance -70 / -70 220 / 220
SaO2 88
Nasal Cannula flow liters per 50
minute
Physical Exam
General: Comfortable (Cachectic)
HEENT: Normocephalic
Cardiovascular: S1-S2, Regular Rhythm, Murmur (n), Rub (n) and Peripheral Edema (n)
Respiratory: Wheeze (n), Crackles (n), Rhonchi (n), Non-Labored Respirations and Other (Diminished breath sounds bilateral, bronchial)
GI: Soft and Non Distended
Neurology: Awake, Alert and No Motor Deficits (Able to sit up without assistance)
Skin: Warm and Cyanosis (Mild peripheral cyanosis)
Labs/Micro/Reports
Lab Data
10/05/24 03:58
10/05/24 03:58
--- NOTE | 2024-10-05 15:21 | PTCARENOTE ---
Patient AOx3. Patient on 50L 100% HFNC and utilizes NRB to keep SpO2 88-90%. [place]. NSR with prolonged QT on monitor. Patient incontinent to urine. Purewick in place draining yellow urine. Bladder scanned patient due to low urine output. Scanned
patient for 112. Psoriasis throughout entire body. Call estrada within reach, bed in lowest position, and bed of wheels locked.
[2024-10-05] MEDS: NOVOLOG FLEXPEN-LOW RESISTANCE 1 UNITS SC (16:43)
[2024-10-05 16:50] LABS: Glucose - Point of Care 160 mg/dl (70-99)
--- NOTE | 2024-10-05 18:07 | PTCARENOTE ---
Patient peed a total of 150 cc throughout 12 hour shift. Patient bladder scanned for 15. Care ongoing
[2024-10-05] MEDS: LIPITOR 40 MG PO (20:28)
[2024-10-05] MEDS: TYLENOL 650 MG PO (20:31)
[2024-10-05 21:32] LABS: Glucose - Point of Care 136 mg/dl (70-99)
--- NOTE | 2024-10-05 22:27 | PTCARENOTE ---
Caring for pt overnight. NO assessment changes. HFNC 50L 100% w/ NRB 15L. OOB to BSCx1. C/o pain in LLQ, tylenol given. Reminded to turn in the bed. NSR. Bed alarm on for safety. Heart cath in AM. NPO after midnight. Will monitor.
[2024-10-06] VITALS (12 sets, daily range): BP systolic 87–127; BP diastolic 49–72; BMI 19.1
[2024-10-06 04:49] LABS: Hemoglobin 9.8 g/dL (12.0-16.0); Mean Corp Hgb Conc. 31.6 g/dL (33.0-37.0); Mean Corpuscular Volume 101.3 fL (81.0-99.0); Mean Platelet Volume 11.1 fL (7.4-10.4); Platelet Count 185 10^3/uL (130-400); Red Blood Cell Count 3.06 10^6/uL (4.20-5.40); Red Cell Dist. Width 14.9 % (11.5-14.5); White Blood Cell Count 9.4 10^3/uL (4.8-10.8)
[2024-10-06 05:11] LABS: ALT (SGPT) < 10 U/L (0-35); AST (SGOT) 20 U/L (14-36); Albumin 3.5 g/dl (3.5-5.0); Alkaline Phosphatase 77 U/L (38-126); Blood Urea Nitrogen 81 mg/dl (7-17); Calcium 8.8 mg/dl (8.4-10.2); Chloride 85 mmol/L (98-107); Estimated Creatinine Clearance 15 ml/min; Glucose 122 mg/dl (70-99); Potassium 4.7 mmol/L (3.5-5.1); Sodium 137 mmol/L (135-145); Total Bilirubin 1.1 mg/dl (0.2-1.3); Total Protein 6.7 g/dl (6.3-8.2); eGFR 20.93
[2024-10-06 05:22] LABS: Carbon Dioxide 38 mmol/L (22-30)
[2024-10-06 06:29] LABS: Glucose - Point of Care 118 mg/dl (70-99)
--- NOTE | 2024-10-06 07:34 | W.PN.HOSP.TC ---
Today's Communication/Plan
-
see A/P
Assessment / Plan
Assessment / Plan
A/P:
# Acute on chronic hypoxic respiratory failure, Likely due to RV failure with severe pulmonary hypertension/tricuspid regurgitation + Acute HFpEF
Now on high flow NC with NRB mask use. Wean O2 when able, goal >88%
Recent echo showed hyperdynamic LV with EF of 70 to 75%, flattened septum, RV overload, severe tricuspid regurgitation, severe pulmonary hypertension
CT Chest: No acute disease of the chest. No pulmonary embolus. Spiculated pleural-based nodule in the anterior right upper lobe. Mild bilateral hilar and mediastinal lymphadenopathy. Stable
Strict I's and O's, daily weights
Given IV fluids so stop fluids
Lasix held due to rising Scr;
Check Flu/COVID
Cardiology on board, planning RHC 10/06
Pulmonary on board
# PARUL
hold lasix
monitor renal function
# COPD
was not on oxygen until July
Continue albuterol
# Recent sinus infection
Completed course of abx Amoxicillin
# Essential hypertension
Continue metoprolol
Hold [employer] lisinopril, hydrochlorothiazide
# Hyperlipidemia
Continue statin
# Type 2 diabetes
Hold metformin
Insulin sliding scale
# Anxiety/depression
Continue Lexapro
# Elevated troponin
# Nonischemic myocardial injury secondary to acute HFpEF, pulm hypertension
No chest pain
# Spiculated pleural-based nodule in the anterior right upper lobe for which PET imaging is recommended.
# Former smoker
DNR/DNI
DVT prophylaxis�heparin SQ
DW RN
updated sister Karina on the phone
CC time 40 min
Anticipated Discharge: > 48 hours
Subjective/Interval History
-
Date of Service: October 06, 2024
Objective Data
-
Labs:
Laboratory Results
10/06/24
04:17
WBC 9.4
Hgb 9.8 L
Hct 31.0 L
Plt Count 185
Sodium 137
Potassium 4.7
Chloride 85 L
Carbon Dioxide 38 H
BUN 81 H
Creatinine 2.4 H
Glucose 122 H
Calcium 8.8
Total Bilirubin 1.1
AST 20
ALT < 10
Alkaline Phosphatase 77
Vital Signs:
Vital Signs
Temp Pulse Resp BP Pulse Ox
36.7 C 74 18 101/69 93
10/06/24 02:11 10/06/24 06:18 10/06/24 06:18 10/06/24 06:18 10/06/24 06:18
I&O
10/05/24 10/06/24 10/07/24
06:59 06:59 06:59
Intake Total 620 / 620 50 / 50
Output Total 400 / 400 150 / 150 100 / 100
Balance 220 / 220 -150 / -150 -50 / -50
Review of Systems
-
All other systems: Reviewed and negative
Physical Exam
-
General: Well Developed, Well Nourished, Comfortable, Respiratory Distress, Conversant and Appears Chronically Ill
HEENT: Normocephalic, Atraumatic, Nose Appears Normal, Ears Appear Normal and Oxygen (100% high flow and NRB )
Respiratory: Non Labored Respirations; Negative Accessory Resp Muscle Use
Cardiac: Regular Rhythm and S1/S2
GI: Soft, Nontender, Nondistended and Normal Bowel Sounds
Skin: Warm and Dry
Neuro: Awake, Alert and Oriented
Psych: Calm and Intact Judgement/Insight
Data Reviewed
-
CT Scan: Report Reviewed by me
Labs: Labs Reviewed by me
[2024-10-06] MEDS: LOW STRENGTH ASPIRIN 81 MG PO (08:08)
[2024-10-06] MEDS: THERAGRAN 1 TABLET PO (08:08)
[2024-10-06] MEDS: LEXAPRO 20 MG PO (08:08)
[2024-10-06] MEDS: HEPARIN 5000 UNITS SC ×2 (08:10→20:15)
[2024-10-06] MEDS: TOPROL XL PO (08:20)
[2024-10-06] MEDS: SYMBICORT 160/4.5 MCG INHALER 2 PUFF INH ×2 (08:29→19:51)
[2024-10-06] MEDS: SPIRIVA RESPIMAT 2.5 MCG 2 PUFF INH (08:29)
[2024-10-06 08:31] LABS: COVID-19 Antigen Negative (Negative)
--- NOTE | 2024-10-06 09:18 | W.PN.PUL3 ---
Today's Communication / Plan
-
Continue high flow oxygen/nonrebreather
Diuresis on hold given worsening PARUL
Await right heart cath before any therapy is considered or initiated
Patient aware of poor long-term prognosis given likely WHO Group III
Assessment
-
74-year-old woman with past medical history noted, advanced COPD with chronic hypoxemic respiratory failure. Here for evaluation of worsening hypoxemia requiring up to high flow oxygen. CT chest without pulmonary embolism or significant
parenchymal lung abnormalities. Prior echocardiogram in mid August 2024 showed severe pulmonary hypertension. We were consulted on 10/02/2024 for evaluation
Acute hypoxemic respiratory failure requiring up to high flow oxygen.
proBNP 18,800/mild troponin leak
Likely due to RV failure with severe pulmonary hypertension based on echocardiogram 08/21/2020
CT chest 10/01/2024: No evidence for pulmonary embolism. Spiculated pleural-based nodule in the anterior right upper lobe stable. Mild bilateral hilar and mediastinal lymphadenopathy.
Lung nodule 1.4X 0.8 cm pleural-based, spiculated, noncalcified right upper lobe-present since 07/2024.
PET scan recommended the patient did not follow through.
Condition present prior admission
Severe COPD: Chronic hypoxemic respiratory failure
Follows with Dr. Garcia last appointment 08/06/2024
Spirometry 08/06/2024: FEV1 0.69 L or 40%, ratio 46%.
Worsening hypoxemic respiratory failure: On 08/06/2024 recommended to go to the emergency room and obtain echo echocardiogram
On BREZTRI
Former smoker [id number] history.
Possible obstructive sleep apnea
Pulmonary nodule 1.4 pleural-based irregular parenchymal opacity in the right upper lobe-PET scan was recommended.
CT chest 07/22/2024: Coarse interstitial markings seen bilaterally, diffuse. Upper lobe predominant. Hyperinflation. Prominent pulmonary artery. 1.4 pleural-based irregular parenchymal opacity on the right upper lobe.
50 pound weight loss over the last 3 to 4 years.
Hyperlipidemia
history of psoriasis-treated with topical medical
Type 2 diabetes
Back surgery in the
Echocardiogram 08/21/2024: Reviewed, showed small left ventricular size. Hyperdynamic. Ejection fraction 70 to 75%. Flattened septum in systole consistent with RV pressure overload. Enlarged right ventricular size. Normal right ventricular
systolic function.
Severe TR. Severe pulmonary hypertension pressure 85 to 90 mmHg.
Assessment and plan:
This is a difficult situation
Severe hypoxemia due to likely chronic pulmonary hypertension: Multiple mechanisms, possibly cor pulmonale from underlying lung disease, chronic hypercapnic respiratory failure untreated, cannot rule out heart failure with preserved ejection
fraction'
Unclear if there is a component of pulmonary arterial hypertension.
Awaiting right heart catheterization
Do not think initiation of nebulized iloprost is of any benefit at this time and could potentially skew results from right heart cath
Given her underlying severe COPD, I reviewed with her the treatment options may not be available given the lack of data to support vasodilator therapy in the setting of severe COPD
CT chest noted with emphysema. There is no interstitial lung disease per right upper lobe small pulmonary nodule.
PET scan has been recommended in the past-this was ordered by primary care. Is still pending. I will have my office follow-up on status of the order.
-
Patient does report exposures to weight loss medications 30 to 40 years ago. She does not recall the names.
-
Remains on high flow oxygen now at 100% FiO2, 50 L + NRB. Maintain pulse ox above 90%.
Dyspneic with activity. Able to sustain a conversation.
She desaturates to 86% with sitting up, is asymptomatic on high flow
-
Continue COPD regimen:
Was supposed to be on BREZTRI in the outpatient setting-continue Spiriva/Symbicort 160mcg while in the hospital.
May need to consider transition to nebulized regimen.
There is no evidence for acute exacerbation-not bronchospastic on exam
No indication for systemic corticosteroids-not bronchospastic on exam.
-
IV diuresis on hold - last given on 10/05/2024-discussed with cardiology will back down slightly on IV diuresis as creatinine has bumped.
Follow electrolytes and renal function
Cardiology following
-
There is no evidence for pulmonary embolism on CTA chest from 10/01/2024
Liver function testing is normal.
Renal function is worsening
C-reactive protein is slightly elevated 10.2.
Normal TSH
VERITO-negative. Suspicion for connective tissue disease associated pulmonary hypertension is less likely.
She will eventually require a VQ scan
-
ABG 10/03/2024: 7.41/70/62(on high flow oxygen) Chronic hypercapnic respiratory failure-compensated. This is also likely contributing to her pulmonary hypertension as it is untreated.
Mental status baseline. Alert, cooperative.
Avoid sedatives.
Suspect due to underlying advanced COPD.
Hopefully as oxygen requirements improved can start nocturnal BiPAP while in the hospital 08/07.
She has been recommended to undergo a sleep study but has not been able to do it.
There is suspicion for obstructive sleep apnea.
-
Her weight loss over time may be from pulmonary cachexia.
Nutritional support
Aspiration precautions
If there is pulmonary arterial hypertension will be a difficult situation with underlying severe COPD. Pulmonary vasodilators in this patient's may trigger paradoxical worsening hypoxemia.
If this is confirmed may need to consider [facility] with a pulmonary hypertension center. This could be discussed in the outpatient setting hopefully after she stabilizes and we have ruled out other etiologies
-
DVT prophylaxis with heparin subcutaneous
-
Will follow
Dr. Krueger reviewed with cardiology on 10/05
-
Dr. Lyon updated and patient in detail on 10/02/2024.
Dr. Krueger reviewed with and family members at bedside 10/04/2024
-
DNR status
Prognosis is guarded
-
Outpatient follow-up with Dr. Garcia after discharge.
Total time spent today was 53 minutes for this encounter. Time includes reviewing laboratory test/imaging results, reviewing pertinent medical records, obtaining and reviewing medical history, performing an appropriate exam, ordering medications,
tests and procedures. Time also includes documentation of this encounter, coordinating patient care and communicating with other healthcare professionals. Total time does not include separately billed tests performed on this date of service.
Subjective Data
-
Date of Service:
Date of Service: October 06, 2024
Chief Complaint: Pulmonary Follow Up (Hypoxemic respiratory failure/pulmonary hypertension)
Subjective:
Patient seen and evaluated today at bedside. She feels tired today. Currently on high flow nasal cannula at 100% FiO2, 50 L/min + NRB. Currently saturating 93% with heart rate 85 and BP 95/64. Afebrile overnight. Pending right heart cath today.
She denies chest pain, MEJIA, nausea, fevers or chills.
Review of Systems
General: Other (Negative unless mentioned above)
Objective Data
Data Reviewed
Vital Signs / I&O / Oxygen:
Vital Signs
Temp Pulse Resp BP Pulse Ox
98.0 F 81 20 87/71 94
10/06/24 02:11 10/06/24 08:30 10/06/24 08:30 10/06/24 08:20 10/06/24 08:36
Intake and Output
10/05/24 10/06/24 10/07/24
06:59 06:59 06:59
Intake Total 620 / 620 50 / 50
Output Total 400 / 400 150 / 150 100 / 100
Balance 220 / 220 -150 / -150 -50 / -50
SaO2 94
Nasal Cannula flow liters per 50
minute
Physical Exam
General: Respiratory Distress (n) and Comfortable (Cachectic)
HEENT: Normocephalic and Anicteric
Cardiovascular: S1-S2, Murmur (n), Rub (n) and Peripheral Edema (n)
Respiratory: Wheeze (n), Crackles (n), Rhonchi (n), Non-Labored Respirations and Other (Diminished breath sounds bilaterally)
GI: Soft, Non Distended, Non Tender and Normal Bowel Sounds
Neurology: Awake, Alert, No Motor Deficits (Able to sit up without assistance) and Tremors (n)
Skin: Warm and Cyanosis (Mild peripheral cyanosis)
Labs/Micro/Reports
Lab Data
10/06/24 04:17
10/06/24 04:17
Microbiology
10/06/24 08:04 Nasal Swab Influenza Types A & B (APRYL) - Final
Negative for Influenza A & B, NAAT
Negative results must be combined with clinical observations
and patient history.
Nucleic Acid Amplification test (NAAT)performed on the
[employer] platform.
--- NOTE | 2024-10-06 12:12 | PTCARENOTE ---
Received patient this am. Patient aao x3, denies pain up to this point. NSR in the 80's on the monitor. AM lopressor help due to bp 103/67 (78), rechecked 87/71 (78), md aware. Lungs with crackles to b/l bases, on hi-flow 50l 100% and using NRB to
keep o2 sats above 90%. Awaiting cardiac cath lab radiology technologist for R sided cath, remains NPO at this time. Purewick in place draining clear, yellow urine. Will continue to monitor.
[2024-10-06 12:15] LABS: Glucose - Point of Care 101 mg/dl (70-99)
--- NOTE | 2024-10-06 17:30 | W.PN.CARDCBS ---
Addendum entered and electronically signed by Hector Connolly MD 10/07/24 16:13:
Planned right heart catheterization. Risk and benefits explained
Original Note:
Today's Communication / Plan
-
Postpone right heart catheterization till tomorrow
Impression / Plan
-
PCP: Dr. Hernandez
Pulm: Dr. Garcia
Card: scheduled to see Dr. Connolly as a new patient 10/06/24
Impression:
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
High oxygen requirements
Admitted with multifactorial SOB 10/01/2024
Acute hypoxemic respiratory failure, multifactorial
Elevated troponin
Right heart failure
Heart failure preserved ejection fraction
COPD, stage IV
Former smoker
Weight loss
Spiculated pleural-based nodule in the anterior right upper lobe on CT chest 10/01/2024, largely unchanged compared to July 2024
-10/01/2024: CT chest: Spiculated pleural-based nodule in the anterior right upper lobe
-08/21/2024: Echo: LV: EF 70-75%. Flattened septum consistent with RV pressure/volume overload with D-shaped septum. RV: Dilated, LA: Normal, RA: Normal, MV: No MR, AV: Calcified AV with trace AI, TV: Severe TR with severe pulmonary hypertension
and estimated PAP 85-90 mmHg
-08/06/2024: PFT: FEV1: 0.69 (40%), FVC: 1.49 (64%). Findings were consistent with severe obstruction and mild restrictive lung disease
-07/22/2024: CT chest: Soft tissue fullness in the hilar region suggest at least mild hilar adenopathy with mild mediastinal adenopathy. There is a 1.4 cm based parenchymal opacity in the right upper lobe. Recommended PET.
Plan:
Related to logistic issues, we were unable to perform right heart cath in the afternoon. Given her severe pulmonary hypertension, we discussed whether or not right heart catheterization should be performed tomorrow when full team is available to
optimize procedural outcome and minimize risk.
Patient and were agreeable to postponement of the procedure and expressed a desire to have the procedure performed under optimal conditions.
Will keep her n.p.o. for tomorrow and proceed earlier in the day.
Her PARUL has progressed, creatinine now 2.4, will continue to hold diuretics.
It is somewhat reassuring that her spiculated lung nodule is roughly the same as July, but PET scan to be considered. Unclear given the severity of her COPD, frailty, cachexia that she would be a candidate for any form of treatment in the event
that her nodule is malignant.
Saturations are currently 94% on high flow 50 L plus nonrebreather.
I gently asked how aggressive she wished to be in her care and she said, ' I would like to live longer'. was at bedside.
I expressed that we may find that there are no good therapeutic options
It seems that her left heart failure is likely a result of pulmonary hypertension and RV/LV interaction through the interventricular septum.
Troponin elevation is none ACS/SD myocardial injury from pulmonary hypertension and right heart failure
Prognosis is very guarded
This is a 74-year-old female with a past medical history notable for severe underlying COPD and was initiated on home oxygen therapy in June 2024. Additional history includes hypertension and hyperlipidemia. Long history of tobacco abuse. A
chest CT scan from 07/22/2024 was notable for a 1.4 cm pleural-based parenchymal opacity in the anterior right upper lobe with recommended PET scan
.
She was evaluated by Dr. Katlin Garcia on 08/06/2024 for evaluation of shortness of breath and was found to have O2 saturations in the 60s on room air and required 10 L of O2 with ambulation to maintain O2 levels above 90%. Hospitalization was
discussed with the patient at that time which she refused. The patient had reported that her shortness of breath had been worsening over several years. She has refused hospitalization after her office visit with Dr. Garcia. She was seen on a second
occasion by Dr. Garcia on 10/01/2024. Troponin is mildly elevated 0.064 ng/ml
Progress Note - Driller And Reamer
Subjective
Date of Service: October 06, 2024:
74-year-old woman with advanced COPD and severe pulmonary hypertension, room air pulse oximetry down to 60% requiring mid flow to maintain adequate saturation.
PMH: Severe pulmonary hypertension, advanced COPD,
Current medications: Albuterol, subcu heparin, aspirin 81 mg a day, atorvastatin 40 mg at bedtime, escitalopram 20 mg a day, metoprolol ER 100 mg daily, Spiriva, Symbicort. As outpatient patient was on hydrochlorothiazide and lisinopril
112/62, pulse 87, respiratory 27, afebrile, sats 97% on high flow 50 L a minute, weight is 44.4 kg up 0.6 kg, in 2020 weight was 77.9 kg, frail, cachectic, diminished breath sounds with rhonchi, regular rate and rhythm, soft systolic murmur left
lower sternal border, JVD elevated, scaphoid abdomen, not much edema, neuro nonfocal
Chest x-ray 10/01/[address] of chest 10/01/2024 1.4 cm x 0.8 cm pleural-based spiculated nodule anterior right upper lobe, no pulmonary embolus
ECG sinus rhythm with PACs, probable RVH, right atrial enlargement, nonspecific ST and T changes
Hemoglobin 9.8, white count 9.4, MCV 101, BUN and creatinine 81 and 2.4, creatinine was 1.0 on admission, troponin is 0.064, proBNP yesterday was 21,700, was 18,800 on the
Echo 08/21/2024: Small LV, hyperdynamic, EF 70-75%, flattened septum, dilated RV with normal systolic function, aortic sclerosis obvious stenosis or regurgitation severe TR, pulmonary artery pressure 85-90 mmHg
Objective
Labs:
10/06/24 04:17
10/06/24 04:17
Labs
Hgb 9.8 g/dL (12.0-16.0) L 10/06/24 04:17
Hct 31.0 % (37.0-47.0) L 10/06/24 04:17
Plt Count 185 10^3/uL (130-400) 10/06/24 04:17
Sodium 137 mmol/L (135-145) 10/06/24 04:17
Potassium 4.7 mmol/L (3.5-5.1) 10/06/24 04:17
BUN 81 mg/dl (7-17) H 10/06/24 04:17
Creatinine 2.4 mg/dL (0.6-1.0) H 10/06/24 04:17
Glucose 122 mg/dl (70-99) H 10/06/24 04:17
Vital Signs and I&O:
Vital Signs
Temp Pulse Resp BP Pulse Ox
36.4 C 87 27 112/62 97
10/06/24 16:06 10/06/24 16:00 10/06/24 16:00 10/06/24 16:00 10/06/24 14:12
Vital Signs
Temp Pulse Resp BP Pulse Ox
36.4 C 87 27 112/62 97
10/06/24 16:06 10/06/24 16:00 10/06/24 16:00 10/06/24 16:00 10/06/24 14:12
Intake & Output
10/04/24 10/05/24 10/06/24 10/07/24
07:59 07:59 07:59 07:59
Intake Total 480 / 480 620 / 620 50 / 50
Output Total 550 / 550 400 / 400 250 / 250
Balance -70 / -70 220 / 220 -200 / -200
Physical Exam
Physical Exam
See above
[2024-10-06 18:37] LABS: Glucose - Point of Care 82 mg/dl (70-99)
[2024-10-06] MEDS: TYLENOL 650 MG PO (19:21)
[2024-10-06] MEDS: VENTOLIN NEBULES 2.5 MG INH (19:51)
[2024-10-06] MEDS: LIPITOR 40 MG PO (20:15)
--- NOTE | 2024-10-06 23:53 | PTCARENOTE ---
Caring for patient overnight. No assessment changes. Remains on HFNC 50L 100% w/ NRB 15L. NSR, bp's running soft but stable. C/o pain L side abdomen. Q2T. at bedside, no questions. Call estrada in reach, will monitor.
[2024-10-07] VITALS (23 sets, daily range): BP systolic 75–140; BP diastolic 46–95; BMI 18.9
[2024-10-07 00:02] LABS: Glucose - Point of Care 146 mg/dl (70-99)
[2024-10-07 05:41] LABS: Hematocrit 33.3 % (37.0-47.0); Hemoglobin 10.5 g/dL (12.0-16.0); Mean Corp Hgb Conc. 31.5 g/dL (33.0-37.0); Mean Corpuscular Volume 101.5 fL (81.0-99.0); Mean Platelet Volume 10.9 fL (7.4-10.4); Platelet Count 192 10^3/uL (130-400); Red Blood Cell Count 3.28 10^6/uL (4.20-5.40); Red Cell Dist. Width 14.7 % (11.5-14.5)
[2024-10-07 05:56] LABS: Blood Urea Nitrogen 87 mg/dl (7-17); Calcium 9.3 mg/dl (8.4-10.2); Chloride 87 mmol/L (98-107); Estimated Creatinine Clearance 21 ml/min; Glucose 103 mg/dl (70-99); Magnesium 2.3 mg/dl (1.6-2.3); Potassium 4.3 mmol/L (3.5-5.1); Sodium 136 mmol/L (135-145); eGFR 31.66
[2024-10-07 06:16] LABS: Carbon Dioxide 36 mmol/L (22-30)
--- NOTE | 2024-10-07 07:53 | W.PN.HOSP.TC ---
Today's Communication/Plan
-
see A/P
Assessment / Plan
Assessment / Plan
A/P:
# Acute on chronic hypoxic respiratory failure, Likely due to RV failure with severe pulmonary hypertension/tricuspid regurgitation + Acute HFpEF
Now on high flow NC with NRB mask use. Wean O2 when able, goal >88%
Recent echo showed hyperdynamic LV with EF of 70 to 75%, flattened septum, RV overload, severe tricuspid regurgitation, severe pulmonary hypertension
CT Chest: No acute disease of the chest. No pulmonary embolus. Spiculated pleural-based nodule in the anterior right upper lobe. Mild bilateral hilar and mediastinal lymphadenopathy. Stable
Flu/COVID negative
s/p IV fluid, now off
Lasix held due to rising SCr;
Strict I's and O's, daily weights
Cardiology on board, planning RHC 10/07
Pulmonary on board
# PARUL, improving
hold lasix
monitor renal function
SCr 2.4 -> 1.7
# COPD
was not on oxygen until July
Continue albuterol
# Recent sinus infection
Completed course of abx Amoxicillin
# Essential hypertension
Continue metoprolol
Hold [employer] lisinopril, hydrochlorothiazide
# Hyperlipidemia
Continue statin
# Type 2 diabetes
Hold metformin
Insulin sliding scale
# Anxiety/depression
Continue Lexapro
# Elevated troponin
# Nonischemic myocardial injury secondary to acute HFpEF, pulm hypertension
No chest pain
# Spiculated pleural-based nodule in the anterior right upper lobe for which PET imaging is recommended.
# Former smoker
DNR/DNI
DVT prophylaxis�heparin SQ
updated sister Karina on the phone 10/06
CC time 40 min
Anticipated Discharge: > 48 hours
Subjective/Interval History
-
Date of Service: October 07, 2024
Objective Data
-
Labs:
Laboratory Results
10/07/24
05:08
WBC 10.0
Hgb 10.5 L
Hct 33.3 L
Plt Count 192
Sodium 136
Potassium 4.3
Chloride 87 L
Carbon Dioxide 36 H
BUN 87 H
Creatinine 1.7 H
Glucose 103 H
Calcium 9.3
Vital Signs:
Vital Signs
Temp Pulse Resp BP Pulse Ox
36.6 C 83 16 104/64 98
10/07/24 05:44 10/07/24 06:00 10/07/24 06:00 10/07/24 06:00 10/07/24 06:00
I&O
10/06/24 10/07/24 10/08/24
06:59 06:59 06:59
Intake Total 50 / 50
Output Total 150 / 150 100 / 100
Balance -150 / -150 -50 / -50
Review of Systems
-
All other systems: Reviewed and negative
Physical Exam
-
General: Well Developed, Well Nourished, Comfortable, Respiratory Distress, Conversant and Appears Chronically Ill
HEENT: Normocephalic, Atraumatic, Nose Appears Normal, Ears Appear Normal and Oxygen (100% high flow and NRB )
Respiratory: Non Labored Respirations; Negative Accessory Resp Muscle Use
Cardiac: Regular Rhythm and S1/S2
GI: Soft, Nontender, Nondistended and Normal Bowel Sounds
Skin: Warm and Dry
Neuro: Awake, Alert and Oriented
Psych: Calm and Intact Judgement/Insight
Data Reviewed
-
CT Scan: Report Reviewed by me
Labs: Labs Reviewed by me
[2024-10-07] MEDS: SPIRIVA RESPIMAT 2.5 MCG 2 PUFF INH (07:55)
[2024-10-07] MEDS: SYMBICORT 160/4.5 MCG INHALER 2 PUFF INH ×2 (07:55→19:27)
--- NOTE | 2024-10-07 08:12 | W.PN.PUL3 ---
Today's Communication / Plan
-
Continue high flow oxygen/nonrebreather
Diuresis resumed given PCWP 24 on RHC today
Consider starting phosphodiesterase 5 inhibitor if BP can tolerated and cardiology agrees with this intervention
Ideally we should transfer her to a PH specialized center
Patient aware of poor long-term prognosis given likely WHO Group III
If she continues to deteriorate then would transition to comfort care/hospice
Pulmonary service will continue to follow along
Assessment
-
74-year-old woman with past medical history noted, advanced COPD with chronic hypoxemic respiratory failure. Here for evaluation of worsening hypoxemia requiring up to high flow oxygen. CT chest without pulmonary embolism or significant
parenchymal lung abnormalities. Prior echocardiogram in mid August 2024 showed severe pulmonary hypertension. We were consulted on 10/02/2024 for evaluation
Acute hypoxemic respiratory failure requiring up to high flow oxygen due to severe PH with PVR 14.5 via RHC on 10/07/2024 with both pre and postcapillary components
proBNP 18,800/mild troponin leak
Likely due to RV failure with severe pulmonary hypertension based on echocardiogram 08/21/2020
CT chest 10/01/2024: No evidence for pulmonary embolism. Spiculated pleural-based nodule in the anterior right upper lobe stable. Mild bilateral hilar and mediastinal lymphadenopathy.
Lung nodule 1.4X 0.8 cm pleural-based, spiculated, noncalcified right upper lobe-present since 07/2024.
PET scan recommended the patient did not follow through.
Condition present prior admission
Severe COPD: Chronic hypoxemic respiratory failure
Follows with Dr. Garcia last appointment 08/06/2024
Spirometry 08/06/2024: post-BD FEV1: 0.78L/45% predicted, ratio 46 --> 48 with bronchodilator.
Worsening hypoxemic respiratory failure: On 08/06/2024 recommended to go to the emergency room and obtain echo echocardiogram
[facility]
Former smoker [id number] history.
Possible obstructive sleep apnea
Pulmonary nodule 1.4 pleural-based irregular parenchymal opacity in the right upper lobe-PET scan was recommended.
CT chest 07/22/2024: Coarse interstitial markings seen bilaterally, diffuse. Upper lobe predominant. Hyperinflation. Prominent pulmonary artery. 1.4 pleural-based irregular parenchymal opacity on the right upper lobe.
50 pound weight loss over the last 3 to 4 years.
Hyperlipidemia
history of psoriasis-treated with topical medical
Type 2 diabetes
Back surgery in the
Echocardiogram 08/21/2024: Reviewed, showed small left ventricular size. Hyperdynamic. Ejection fraction 70 to 75%. Flattened septum in systole consistent with RV pressure overload. Enlarged right ventricular size. Normal right ventricular
systolic function.
Severe TR. Severe pulmonary hypertension pressure 85 to 90 mmHg.
Assessment and plan:
This is a difficult situation
Severe hypoxemia due to likely due to acute on chronic pulmonary hypertension: Multiple mechanisms, possibly cor pulmonale from underlying lung disease, chronic hypercapnic respiratory failure untreated, and heart failure with preserved ejection
fraction'
Do not think initiation of nebulized iloprost is of any benefit at this time
Given her underlying severe COPD, I reviewed with her the treatment options may not be available given the lack of data to support vasodilator therapy in the setting of severe COPD
CT chest noted with emphysema. There is no interstitial lung disease per right upper lobe small pulmonary nodule.
PET scan has been recommended in the past-this was ordered by primary care. Is still pending. I will have my office follow-up on status of the order.
-
Patient does report exposures to weight loss medications 30 to 40 years ago. She does not recall the names.
-
Remains on high flow oxygen now at 100% FiO2, 50 L + NRB. Maintain pulse ox above 90%.
Dyspneic with activity. Able to sustain a conversation.
She desaturates to 86% with sitting up, is asymptomatic on high flow
-
Continue COPD regimen:
Was supposed to be on BREZTRI in the outpatient setting-continue Spiriva/Symbicort 160mcg while in the hospital.
May need to consider transition to nebulized regimen.
There is no evidence for acute exacerbation-not bronchospastic on exam
No indication for systemic corticosteroids-not bronchospastic on exam.
-
IV diuresis was on hold - last given on 10/05/2024-discussed with cardiology will back down slightly on IV diuresis as creatinine has bumped.
RHC performed today showing elevated PCWP of 24 --> lasix resumed (see below)
Follow electrolytes and renal function
Cardiology following
-
There is no evidence for pulmonary embolism on CTA chest from 10/01/2024
Liver function testing is normal.
Renal function is better today (10/07/2024)
C-reactive protein is slightly elevated 10.2.
Normal TSH
VERITO-negative. Suspicion for connective tissue disease associated pulmonary hypertension is less likely.
She will eventually require a VQ scan
-
ABG 10/03/2024: 7.41/70/62(on high flow oxygen) Chronic hypercapnic respiratory failure-compensated. This is also likely contributing to her pulmonary hypertension as it is untreated.
Mental status baseline. Alert, cooperative.
Avoid sedatives.
Suspect due to underlying advanced COPD.
Hopefully as oxygen requirements improved can start nocturnal BiPAP while in the hospital 08/07.
She has been recommended to undergo a sleep study but has not been able to do it.
There is suspicion for obstructive sleep apnea.
-
Her weight loss over time may be from pulmonary cachexia.
Nutritional support
Aspiration precautions
Right heart cath performed today showing severe pre as well as postcapillary pulmonary hypertension with PVR of 14 and PCWP 24 --> will start on 40 mg IV Lasix
- Her pH is likely largely due to precapillary PH given her TPG is 22, with PVR 14.5 Hewitt units and mPAP 56 mmHg
- Unfortunately there are no large randomized trials involved in the use of PDE 5 inhibitors with insufficient evidence to support its general use and ideally this patient should be referred to a pH center for individual decision making
-Will start with 40 mg IV Lasix and if patient's BP can tolerate then would consider starting sildenafil at that point if cardiology agrees with this intervention
-
DVT prophylaxis with heparin subcutaneous
-
Will follow
Dr. Krueger reviewed with cardiology on 10/05; Dr. Haro reviewed with Dr. Connolly on 10/07/2024
-
Dr. Lyon updated and patient in detail on 10/02/2024.
Dr. Krueger reviewed with and family members at bedside 10/04/2024
-
DNR status
Prognosis is guarded
-
Outpatient follow-up with Dr. Garcia after discharge.
Total time spent today was 58 minutes for this encounter. Time includes reviewing laboratory test/imaging results, reviewing pertinent medical records, obtaining and reviewing medical history, performing an appropriate exam, ordering medications,
tests and procedures. Time also includes documentation of this encounter, coordinating patient care and communicating with other healthcare professionals. Total time does not include separately billed tests performed on this date of service.
Data:
Right heart catheterization 10/07/24:
Hemodynamics (mmHg):
RA (m) : 9
RV (s/d,m) : 96/8, 14
PA (s/d, m) : 92/34, 56
PCWP (m) : 24
AO: (Cuff pressure) 124/66, 89
Cardiac Output : 2.2 L/min Cardiac Index : 1.6 L/min/m-2
Systemic vascular resistance: 36.4 Wood units or 2909 [id number]-og(-5)
Pulmonary vascular resistance: 14.5 Wood units or 1164 [id number]-id(-5)
Subjective Data
-
Date of Service:
Date of Service: October 07, 2024
Chief Complaint: Pulmonary Follow Up (Hypoxemic respiratory failure/pulmonary hypertension)
Subjective:
Patient was seen and evaluated today at bedside. Her brother, Leonard, and her brother's friend, Ed, both at bedside and all questions were answered. Patient remains on high flow nasal cannula at 100% FiO2 with nonrebreather over that. She is
saturating 92% with heart rate 82 and BP 127/72. She is comfortable at rest, denying SOB, chest pain, fevers or chills.
Review of Systems
General: Other (Negative unless mentioned above)
Objective Data
Data Reviewed
Vital Signs / I&O / Oxygen:
Vital Signs
Temp Pulse Resp BP Pulse Ox
97.8 F 90 20 104/64 96
10/07/24 05:44 10/07/24 07:56 10/07/24 07:56 10/07/24 06:00 10/07/24 07:56
Intake and Output
10/06/24 10/07/24 10/08/24
06:59 06:59 06:59
Intake Total 50 / 50
Output Total 150 / 150 100 / 100
Balance -150 / -150 -50 / -50
SaO2 96
Nasal Cannula flow liters per 50
minute
Physical Exam
General: Respiratory Distress (n) and Comfortable (Cachectic)
HEENT: Normocephalic and Anicteric
Cardiovascular: S1-S2, Murmur (n), Rub (n) and Peripheral Edema (n)
Respiratory: Wheeze (n), Crackles (Bibasilar), Rhonchi (n), Non-Labored Respirations and Other (Diminished breath sounds bilaterally)
GI: Soft, Non Distended, Non Tender and Normal Bowel Sounds
Neurology: AO x 3, No Motor Deficits (Able to sit up without assistance) and Tremors (n)
Skin: Warm, Dry, Cyanosis (Mild peripheral cyanosis) and Jaundice (n)
Labs/Micro/Reports
Lab Data
10/07/24 05:08
10/07/24 05:08
Microbiology
10/06/24 08:04 Nasal Swab Influenza Types A & B (APRYL) - Final
Negative for Influenza A & B, NAAT
Negative results must be combined with clinical observations
and patient history.
Nucleic Acid Amplification test (NAAT)performed on the
[employer] platform.
[2024-10-07] MEDS: TOPROL XL 100 MG PO (08:42)
[2024-10-07] MEDS: THERAGRAN 1 TABLET PO (08:42)
[2024-10-07] MEDS: LOW STRENGTH ASPIRIN 81 MG PO (08:42)
[2024-10-07] MEDS: LEXAPRO 20 MG PO (08:42)
[2024-10-07] MEDS: HEPARIN 5000 UNITS SC ×2 (08:42→19:45)
[2024-10-07] MEDS: TYLENOL 650 MG PO ×2 (09:49→19:53)
[2024-10-07 11:38] LABS: Glucose - Point of Care 111 mg/dl (70-99)
--- NOTE | 2024-10-07 13:29 | CM ---
Patient with Hx COPD with Dx Acute hypoxemic respiratory failure, HF. Plan right heart cath. High flow O2.
As per prior CM notes, patient is hoping to go home with Odell BRITO.
Plan request PT/OT when medically less acute.
Plan TBD.
--- NOTE | 2024-10-07 16:13 | ITS.CL.CATH ---
Radial Router Operator - Catheterization
Cardiac Catheterization
Procedure Report:
RIGHT HEART CATHETERIZATION
Date of Procedure: October 07, 2024
Referring: Dr. Katlin Garcia
INDICATION: Severe shortness of breath requiring high flow oxygen and pulmonary hypertension
Hemodynamics (mmHg):
RA (m) : 9
RV (s/d,m) : 96/8, 14
PA (s/d, m) : 92/34, 56
PCWP (m) : 24
AO: (Cuff pressure) 124/66, 89
Cardiac Output : 2.2 L/min Cardiac Index : 1.6 L/min/m-2
Systemic vascular resistance: 36.4 Wood units or 2909 vosjq-iia-rq(-5)
Pulmonary vascular resistance: 14.5 Wood units or 1164 hgbzn-zoa-bg(-5)
RADIATION SUMMARY: Fluoro Time (min): 6.5, Dose (mGy): 36.2, DAP (Gy.cm2) : 4.7
CONCLUSION:
1. Combined pre and postcapillary pulmonary hypertension. Severe postcapillary pulmonary hypertension suggestive of significant intrinsic pulmonary disease and elevated pulmonary capillary wedge pressure to 24 mmHg suggestive of a degree of
precapillary pulmonary hypertension
Copy to: Dr. Katlin Garcia
--- NOTE | 2024-10-07 16:30 | PTCARENOTE ---
Addendum entered by Jonathan Pinto RN 10/07/24 20:27:
1800: Patient with nausea after return from labor and delivery registered nurse. Zofran given. Patient unable to keep sats >85%, reports dizziness and drowsiness noted. Sitting upright now that 2hrs flat is over and sats still unable to maintain >85%. Haleigh VALENTE and freeman
contacted. MD Hancock came to bedside. See new orders. Bipap to be placed by respiratory. Closely monitoring.
Original Note:
Received patient back to room from labor and delivery registered nurse. Instructed to lay flat for 2 hours. Right fem dressing CDI. Patient on hiflow and NRB. VSS, Will closely monitor.
[2024-10-07] MEDS: ZOFRAN 4 MG IV (17:14)
[2024-10-07] MEDS: VENTOLIN NEBULES 2.5 MG INH (18:00)
[2024-10-07 18:35] LABS: Glucose - Point of Care 105 mg/dl (70-99)
[2024-10-07] MEDS: LASIX 40 MG IV (19:42)
[2024-10-07] MEDS: COMPAZINE 10 MG IV (19:43)
[2024-10-07] MEDS: LIPITOR PO (23:00)
--- NOTE | 2024-10-07 23:02 | PTCARENOTE ---
Received patient from previous RN. Patient on HFNC with non rebreather. Plan was to place patient on bipap overnight per MD. RT discussed with MD that patient would need Non invasive bipap to maintain level of oxygen she currently has, MD aware and
wanted to monitor O2 sats. Patient became drowsy and oxygen saturation dropped into low 80s and maintained. This RN notified PHOTOGRAPHIC EQUIPMENT INSPECTOR and RT, both came to bedside. RT started patient on non invasive bipap and PHOTOGRAPHIC EQUIPMENT INSPECTOR ordered transfer to ICU. This RN gave
report to Devante RN in ICU. Transferred patient without issue. All belongings transferred with patient.
--- NOTE | 2024-10-07 23:15 | W.PN.UPDATE ---
Update Note
Progress Note Update
Patient is de sating to 81%-83% while on HFNC & NRB. Patient is requiring NIV.
Will transfer to ICU for NIV.
Spoke to the son/ and updated.
[2024-10-07] MEDS: LEVOPHED 250 IV (23:34)
--- NOTE | 2024-10-07 23:48 | W.PN.UPDATE ---
Update Note
Progress Note Update
Discussed situation, escalation of care (now requiring NIV and pressors), and guarded prognosis with son. He also wanted to changed code status to full code. He stated, 'his mother would be ok with intubation and resuscitation. She wants care
stop if she was in a vegetative or unrecoverable state'
[2024-10-08] VITALS (53 sets, daily range): BP systolic 78–137; BP diastolic 48–81; BMI 19.0
--- NOTE | 2024-10-08 02:30 | PTCARENOTE ---
Received pt via transfer from IMU for respiratory distress. Pt AAOx3, able to move upper extremities, weakness in lower extremities. NSR, palpable pulses. Tachypneic, with dyspnea on exertion. NIV on 100%. Hypoactive bowel sounds in all 4Q. Purewick
in place. Psoriasis present, scattered scabs. Levo gtt started for hypotension. Call estrada at bedside.
[2024-10-08 05:20] LABS: Hemoglobin 10.4 g/dL (12.0-16.0); Mean Corp Hgb Conc. 30.6 g/dL (33.0-37.0); Mean Corpuscular Hgb 31.2 pg (27.0-31.0); Mean Corpuscular Volume 102.1 fL (81.0-99.0); Mean Platelet Volume 11.3 fL (7.4-10.4); Platelet Count 247 10^3/uL (130-400); Red Blood Cell Count 3.33 10^6/uL (4.20-5.40); Red Cell Dist. Width 14.6 % (11.5-14.5); White Blood Cell Count 12.1 10^3/uL (4.8-10.8)
--- NOTE | 2024-10-08 05:41 | PTCARENOTE ---
All systems reassessed. Pt's breathing and oxygen saturation improving, labs drawn and hygiene performed.
[2024-10-08 06:19] LABS: Blood Urea Nitrogen 102 mg/dl (7-17); Calcium 9.5 mg/dl (8.4-10.2); Chloride 88 mmol/L (98-107); Estimated Creatinine Clearance 25 ml/min; Glucose 141 mg/dl (70-99); Magnesium 2.4 mg/dl (1.6-2.3); Potassium 5.3 mmol/L (3.5-5.1); Sodium 140 mmol/L (135-145); eGFR 39.97
[2024-10-08 06:31] LABS: Carbon Dioxide 37 mmol/L (22-30)
[2024-10-08] MEDS: HEPARIN 5000 UNITS SC ×2 (07:38→20:20)
[2024-10-08] MEDS: TOPROL XL 100 MG PO (07:38)
[2024-10-08] MEDS: LEXAPRO 20 MG PO (07:39)
[2024-10-08] MEDS: THERAGRAN 1 TABLET PO (07:39)
[2024-10-08] MEDS: LOW STRENGTH ASPIRIN 81 MG PO (07:39)
[2024-10-08] MEDS: DUONEB 3 ML INH ×4 (08:18→19:56)
[2024-10-08] MEDS: PULMICORT 0.5 MG INH ×2 (08:18→19:56)
[2024-10-08] MEDS: SPIRIVA RESPIMAT 2.5 MCG INH (08:25)
[2024-10-08] MEDS: SYMBICORT 160/4.5 MCG INHALER INH (08:25)
--- NOTE | 2024-10-08 09:42 | W.PN.CARDCBS ---
Today's Communication / Plan
-
RHC reviewed
Cont IV diuresis as able.
Cr improving to 1.4. Diuretics had been held.
HF likely secondary to significant PHTN,endstage COPD
IV Levophed for bp support
Remains on Hiflo
Cont aggressive pulm toilet.
Cont medical therapy of nonMI troponin
Prognosis appears poor.
Impression / Plan
-
.
PCP: Dr. Hernandez
Pulm: Dr. Garcia
Card: scheduled to see Dr. Connolly as a new patient 10/06/24
Impression:
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
High oxygen requirements
Admitted with multifactorial SOB 10/01/2024
Acute hypoxemic respiratory failure, multifactorial
Elevated troponin
Right heart failure
Heart failure preserved ejection fraction
COPD, stage IV
Former smoker
Weight loss
Spiculated pleural-based nodule in the anterior right upper lobe on CT chest 10/01/2024, largely unchanged compared to July 2024
-10/01/2024: CT chest: Spiculated pleural-based nodule in the anterior right upper lobe
-08/21/2024: Echo: LV: EF 70-75%. Flattened septum consistent with RV pressure/volume overload with D-shaped septum. RV: Dilated, LA: Normal, RA: Normal, MV: No MR, AV: Calcified AV with trace AI, TV: Severe TR with severe pulmonary hypertension
and estimated PAP 85-90 mmHg
-08/06/2024: PFT: FEV1: 0.69 (40%), FVC: 1.49 (64%). Findings were consistent with severe obstruction and mild restrictive lung disease
-07/22/2024: CT chest: Soft tissue fullness in the hilar region suggest at least mild hilar adenopathy with mild mediastinal adenopathy. There is a 1.4 cm based parenchymal opacity in the right upper lobe. Recommended PET.
RA (m) : 9
RV (s/d,m) : 96/8, 14
PA (s/d, m) : 92/34, 56
PCWP (m) : 24
AO: (Cuff pressure) 124/66, 89
Cardiac Output : 2.2 L/min Cardiac Index : 1.6 L/min/m-2
Systemic vascular resistance: 36.4 Wood units or 2909 jujew-oze-af(-5)
Pulmonary vascular resistance: 14.5 Wood units or 1164 gjpbe-qhi-qz(-5)
RADIATION SUMMARY: Fluoro Time (min): 6.5, Dose (mGy): 36.2, DAP (Gy.cm2) : 4.7
CONCLUSION:
1. Combined pre and postcapillary pulmonary hypertension. Severe postcapillary pulmonary hypertension suggestive of significant intrinsic pulmonary disease and elevated pulmonary capillary wedge pressure to 24 mmHg suggestive of a degree of
precapillary pulmonary hypertension
Plan:
RHC reviewed
Cont IV diuresis as able.
Cr improving to 1.4. Diuretics had been held.
HF likely secondary to significant PHTN,endstage COPD
HR and bp currently stable.
IV Levophed for bp support
Remains on Hiflo
Cont aggressive pulm toilet.
Cont medical therapy of nonMI troponin
Prognosis appears poor.
CCT: 30 min
This is a 74-year-old female with a past medical history notable for severe underlying COPD and was initiated on home oxygen therapy in June 2024. Additional history includes hypertension and hyperlipidemia. Long history of tobacco abuse. A
chest CT scan from 07/22/2024 was notable for a 1.4 cm pleural-based parenchymal opacity in the anterior right upper lobe with recommended PET scan
.
She was evaluated by Dr. Katlin Garcia on 08/06/2024 for evaluation of shortness of breath and was found to have O2 saturations in the 60s on room air and required 10 L of O2 with ambulation to maintain O2 levels above 90%. Hospitalization was
discussed with the patient at that time which she refused. The patient had reported that her shortness of breath had been worsening over several years. She has refused hospitalization after her office visit with Dr. Garcia. She was seen on a second
occasion by Dr. Garcia on 10/01/2024. Troponin is mildly elevated 0.064 ng/ml
Progress Note - Head Waiter/Waitress
Subjective
Date of Service: October 08, 2024
Objective
Labs:
10/08/24 05:01
10/08/24 05:01
Labs
Hgb 10.4 g/dL (12.0-16.0) L 10/08/24 05:01
Hct 34.0 % (37.0-47.0) L 10/08/24 05:01
Plt Count 247 10^3/uL (130-400) D 10/08/24 05:01
Sodium 140 mmol/L (135-145) 10/08/24 05:01
Potassium 5.3 mmol/L (3.5-5.1) H 10/08/24 05:01
BUN 102 mg/dl (7-17) H* 10/08/24 05:01
Creatinine 1.4 mg/dL (0.6-1.0) H 10/08/24 05:01
Glucose 141 mg/dl (70-99) H 10/08/24 05:01
Vital Signs and I&O:
Vital Signs
Temp Pulse Resp BP Pulse Ox
97.8 F 82 20 131/64 93
10/08/24 07:57 10/08/24 08:50 10/08/24 08:50 10/08/24 08:50 10/08/24 08:50
Vital Signs
Temp Pulse Resp BP Pulse Ox
97.8 F 82 20 131/64 93
10/08/24 07:57 10/08/24 08:50 10/08/24 08:50 10/08/24 08:50 10/08/24 08:50
Intake & Output
10/06/24 10/07/24 10/08/2425
06:59 06:59 06:59 06:59
Intake Total 50 / 50 7.5 / 7.5 7.5 / 7.5
Output Total 150 / 150 100 / 100
Balance -150 / -150 -50 / -50 7.5 / 7.5 7.5 / 7.5
Physical Exam
Physical Exam
General: No acute distress, awake, frail appearing
Neck: Negative JVD
Heart: Regular, Negative S3 positive S1/S2, Negative S4, No murmur
Lungs: CTA b/l, negative wheezes/rales/rhonchi
Abd: Positive BS, NT/ND, neg rebound/rigidity/guarding
Ext: Negative cyanosis/clubbing/edema
Neuro: nonfocal
--- NOTE | 2024-10-08 11:27 | W.PN.PUL3 ---
Today's Communication / Plan
-
Repeat BMP later
Continue high flow noninvasive mechanical ventilation
Transition to nebulized regimen
Hopefully can diuresis further later today
No indication for pulmonary vasodilators in the severe pulmonary hypertension�advanced pulmonary disease.
Did discuss with patient and she wanted to proceed with DNR status,Dr. Veolz discussed with family and this has been updated.
Prognosis is guarded
Assessment
-
74-year-old woman with past medical history noted, advanced COPD with chronic hypoxemic respiratory failure. Here for evaluation of worsening hypoxemia requiring up to high flow oxygen. CT chest without pulmonary embolism or significant
parenchymal lung abnormalities. Prior echocardiogram in mid August 2024 showed severe pulmonary hypertension. We were consulted on 10/02/2024 for evaluation
Acute hypoxemic respiratory failure requiring up to high flow oxygen due to severe PH with PVR 14.5 via RHC on 10/07/2024 with both pre and postcapillary components
proBNP 18,800/mild troponin leak
Likely due to RV failure with severe pulmonary hypertension based on echocardiogram 08/21/2020
CT chest 10/01/2024: No evidence for pulmonary embolism. Spiculated pleural-based nodule in the anterior right upper lobe stable. Mild bilateral hilar and mediastinal lymphadenopathy.
Lung nodule 1.4X 0.8 cm pleural-based, spiculated, noncalcified right upper lobe-present since 07/2024.
PET scan recommended the patient did not follow through.
Condition present prior admission
Severe COPD: Chronic hypoxemic respiratory failure
Follows with Dr. Garcia last appointment 08/06/2024
Spirometry 08/06/2024: post-BD FEV1: 0.78L/45% predicted, ratio 46 --> 48 with bronchodilator.
Worsening hypoxemic respiratory failure: On 08/06/2024 recommended to go to the emergency room and obtain echo echocardiogram
On JHONATAN
Former smoker [id number] history.
Possible obstructive sleep apnea
Pulmonary nodule 1.4 pleural-based irregular parenchymal opacity in the right upper lobe-PET scan was recommended.
CT chest 07/22/2024: Coarse interstitial markings seen bilaterally, diffuse. Upper lobe predominant. Hyperinflation. Prominent pulmonary artery. 1.4 pleural-based irregular parenchymal opacity on the right upper lobe.
50 pound weight loss over the last 3 to 4 years.
Hyperlipidemia
history of psoriasis-treated with topical medical
Type 2 diabetes
Back surgery in the
Echocardiogram 08/21/2024: Reviewed, showed small left ventricular size. Hyperdynamic. Ejection fraction 70 to 75%. Flattened septum in systole consistent with RV pressure overload. Enlarged right ventricular size. Normal right ventricular
systolic function.
Severe TR. Severe pulmonary hypertension pressure 85 to 90 mmHg.
Assessment and plan:
Critically ill: Patient is a difficult situation with no good options.
-
Severe hypoxemia due to likely due to acute on chronic pulmonary hypertension: Multiple mechanisms, cor pulmonale from underlying lung disease, chronic hypercapnic respiratory failure untreated, and heart failure with preserved ejection
fraction-based on right heart catheterization from 10/07/2024 has a component of pulmonary arterial hypertension with increased transpulmonary gradient but also has increased wedge pressure suggestive of left-sided/postcapillary'
-
Given her underlying severe COPD, I reviewed with her the treatment options may not be available given the lack of data to support vasodilator therapy in the setting of severe COPD.
With increased pulmonary capillary wedge pressure, pulmonary vasodilators can carry increased risk of cardiovascular complication and worsening hypoxemia. Same applies to advanced COPD due to VQ mismatch.
CT chest noted with emphysema. There is no interstitial lung disease per right upper lobe small pulmonary nodule.
PET scan has been recommended in the past-this was ordered by primary care. Is still pending. This will be put on hold as the patient's clinical situation has deteriorated.
-
Patient does report exposures to weight loss medications 30 to 40 years ago. She does not recall the names. May be an etiology for pulmonary arterial hypertension.
-
Condition deteriorated and patient transferred to the critical care unit 10/07/2024.
Remains on high flow oxygen now at 100% FiO2, 50 L + NRB. Maintain pulse ox above 90%.
Continue noninvasive mechanical ventilation: Settings discussed and adjusted, she tolerated overnight. Will continue as able.
Dyspneic with activity. Able to sustain a conversation.
She desaturates to 86% with sitting up, is asymptomatic on high flow
-
Continue COPD regimen:
Was supposed to be on BREZTRI in the outpatient setting-continue Spiriva/Symbicort 160mcg while in the hospital.
Will transition to nebulized therapy DuoNeb/Pulmicort. Hold inhalers.
There is no evidence for acute exacerbation-not bronchospastic on exam
No indication for systemic corticosteroids-not bronchospastic on exam.
-
Unfortunately creatinine bumped, BUN over 100.
IV diuresis was on hold - last given on 10/05/2024-discussed with cardiology will back down slightly on IV diuresis as creatinine has bumped.
RHC performed today showing elevated PCWP of 24 --> will diurese as able.
Creatinine improved but BUN worsened to 01/20/2025. Repeat BMP later. Patient is hyperkalemic.
Follow electrolytes and renal function
Cardiology following
-
There is no evidence for pulmonary embolism on CTA chest from 10/01/2024
Liver function testing is normal.
C-reactive protein is slightly elevated 10.2. Less likely inflammatory process.
Normal TSH
VERITO-negative. Suspicion for connective tissue disease associated pulmonary hypertension is less likely.
She will eventually require a VQ scan-not able to tolerate at this point.CT angiogram without pulmonary embolism
-
ABG 10/03/2024: 7.41/70/62(on high flow oxygen) Chronic hypercapnic respiratory failure-compensated. This is also likely contributing to her pulmonary hypertension as it is untreated.
Mental status baseline. Alert, cooperative.
Avoid sedatives.
Suspect due to underlying advanced COPD.
Noninvasive mechanical ventilation started 10/07/2024. Continue without change.
-
She has been recommended to undergo a sleep study but has not been able to do it.
There is suspicion for obstructive sleep apnea.
-
Her weight loss over time may be from pulmonary cachexia.
Nutritional support
Aspiration precautions
Prior note:
Right heart cath performed today showing severe pre as well as postcapillary pulmonary hypertension with PVR of 14 and PCWP 24 --> IV Lasix given, weight trending lower. Unfortunately creatinine increased.
- Her pH is likely largely due to precapillary PH given her TPG is 22, with PVR 14.5 Hewitt units and mPAP 56 mmHg
- Unfortunately there are no large randomized trials involved in the use of PDE 5 inhibitors with insufficient evidence to support its general use and ideally this patient should be referred to a pH center for individual decision making-doubt that
she would benefit from this at this point.
-No good options in her case.
-
DVT prophylaxis with heparin subcutaneous
-
Will follow
Dr. Lyon updated family 10/08/2024. Prognosis is guarded. No good options at this point.
Dr. Krueger reviewed with cardiology on 10/05; Dr. Haro reviewed with Dr. Connolly on 10/07/[address] Lyon updated and patient in detail on 10/02/2024.
Dr. Krueger reviewed with and family members at bedside 10/04/2024
-
DNR status reinstated 10/08/2024.
Prognosis is guarded
-
Outpatient follow-up with Dr. Garcia after discharge.
Critical care statement: A total of 35 minutes of critical care time was provided for this patient today. This includes management of unstable vital signs, evaluation of the patient at bedside, reviewing the patient's pertinent medical records
including ventilator settings, arterial blood gases, radiographs, microbiology, laboratory evaluations and discussion with primary team, critical care nursing, and respiratory therapy.
Data:
Right heart catheterization 10/07/24:
Hemodynamics (mmHg):
RA (m) : 9
RV (s/d,m) : 96/8, 14
PA (s/d, m) : 92/34, 56
PCWP (m) : 24
AO: (Cuff pressure) 124/66, 89
Cardiac Output : 2.2 L/min Cardiac Index : 1.6 L/min/m-2
Systemic vascular resistance: 36.4 Wood units or 2909 [id number](-5)
Pulmonary vascular resistance: 14.5 Wood units or 1164 [id number](-5)
Subjective Data
-
Date of Service:
Date of Service: October 08, 2024
Chief Complaint: Pulmonary Follow Up (Hypoxemic respiratory failure/pulmonary hypertension)
Subjective:
Currently on noninvasive mechanical ventilation
Alert and following commands
On high concentrations of supplemental oxygen.
Review of Systems
Cardiopulmonary: Dyspnea, Dyspnea on Exertion and Cough (n)
GI: Abdominal Pain (n) and Nausea (n)
Objective Data
Data Reviewed
Vital Signs / I&O / Oxygen:
Vital Signs
Temp Pulse Resp BP Pulse Ox
97.8 F 82 20 131/64 91
10/08/24 07:57 10/08/24 08:50 10/08/24 08:50 10/08/24 08:50 10/08/24 10:11
Intake and Output
10/07/24 10/08/24 10/09/24
06:59 06:59 06:59
Intake Total 50 / 50 7.5 / 7.5 7.5 / 7.5
Output Total 100 / 100
Balance -50 / -50 7.5 / 7.5 7.5 / 7.5
SaO2 91
Nasal Cannula flow liters per 55
minute
Physical Exam
General: Respiratory Distress (n) and Comfortable (Cachectic)
HEENT: Normocephalic and Anicteric
Cardiovascular: S1-S2, Murmur (n), Rub (n) and Peripheral Edema (n)
Respiratory: Wheeze (n), Crackles (Bibasilar), Rhonchi (n), Non-Labored Respirations and Other (Diminished breath sounds bilaterally)
GI: Soft, Non Distended, Non Tender and Normal Bowel Sounds
Neurology: AO x 3, No Motor Deficits (Able to sit up without assistance) and Tremors (n)
Skin: Warm, Dry, Cyanosis (Mild peripheral cyanosis) and Jaundice (n)
Labs/Micro/Reports
Lab Data
10/08/24 05:01
Microbiology
10/06/24 08:04 Nasal Swab Influenza Types A & B (APRYL) - Final
Negative for Influenza A & B, NAAT
Negative results must be combined with clinical observations
and patient history.
Nucleic Acid Amplification test (NAAT)performed on the
[employer] platform.
--- NOTE | 2024-10-08 11:59 | CM ---
CM following re: discharge planning.
Discussed in Rounds, reviewed pt' chart, met with pt and pt's at bedside.
Per Rounds meeting, pt is end stage COPD, HF, requires NIV Bi-pap, currently on 55 L HFNC with FIO2 90%, continue supportive care.
Pt lives with in a 1 story house, 1 step to enter, has SPC, w/c, nebulizer, home O2 two 10-liter concentrators to provide 15L O2 and portable tanks.
PT and OT will evaluate the pt when clinically appropriate.
D/C plan: uncertain at this time and will depend on pt's progress.
CM will follow with discharge plan updates as hospitalization progresses
[2024-10-08 12:07] LABS: Glucose - Point of Care 130 mg/dl (70-99)
--- NOTE | 2024-10-08 12:12 | CM ---
CM following re: discharge planning.
Discussed in Rounds, reviewed pt' chart, met with pt and pt's at bedside.
Per Rounds meeting, pt is end stage COPD, HF, requires NIV Bi-pap, currently on 55 L HFNC with FIO2 90%, continue supportive care.
Pt lives with in a 1 story house, 1 step to enter, has supportive son and 2 stepdaughters. Pt has SPC, w/c, nebulizer, home O2 two 10-liter concentrators to provide 15L O2 and portable tanks. Pt's expressed very little motivation
regarding pt's recovery. Pt's stated he has been observing pt's declining for the past week. Emotional support offered and provided.
D/C plan: uncertain at this time and will depend on pt's progress.
CM will follow with discharge plan updates as hospitalization progresses
--- NOTE | 2024-10-08 12:19 | W.PN.HOSP.TC ---
Addendum entered and electronically signed by Graciela Veloz MD 10/08/24 16:51:
# Suspect cardiogenic shock
Original Note:
Today's Communication/Plan
-
see A/P
d/w , sister Karina and OTILIA in person.
Pt is extremely lethargic, appearing actively dying. Extensive discussion with family wrt GOC. Family agreed to change code status back to DNR DNI. Continue current management for now.
Assessment / Plan
Assessment / Plan
A/P:
# Acute on chronic hypoxic respiratory failure, Likely due to RV failure with severe pulmonary hypertension/tricuspid regurgitation + Acute HFpEF
Was on high flow NC with NRB mask use, increased to NIV and transferred to ICU.
s/p RHC 10/07 noted combined pre and postcapillary pulmonary hypertension. Severe postcapillary pulmonary hypertension suggestive of significant intrinsic pulmonary disease and elevated pulmonary capillary wedge pressure to 24 mmHg suggestive of a
degree of precapillary pulmonary hypertension.
Increased work of breathing and worsening hypoxia overnight 10/07, care was escalated after night team discussed with son despite guarded prognosis.
Of note, recent echo showed hyperdynamic LV with EF of 70 to 75%, flattened septum, RV overload, severe tricuspid regurgitation, severe pulmonary hypertension
CT Chest: No acute disease of the chest. No pulmonary embolus. Spiculated pleural-based nodule in the anterior right upper lobe. Mild bilateral hilar and mediastinal lymphadenopathy. Stable
Flu/COVID negative
IV Lasix restarted, now 40 mg daily
Card on board , Pulmonary on board
# PARUL, improving
SCr 2.4 -> 1.4
monitor renal function with reinstitution of IV lasix
# COPD
was not on oxygen until July
Continue albuterol
# Recent sinus infection
Completed course of abx Amoxicillin
# Essential hypertension
Continue metoprolol
Hold [employer] MA[employer]GER lisinopril, hydrochlorothiazide
# Hyperlipidemia
Continue statin
# Type 2 diabetes
Hold metformin
Insulin sliding scale
# Anxiety/depression
Continue Lexapro
# Elevated troponin
# Nonischemic myocardial injury secondary to acute HFpEF, pulm hypertension
No chest pain
# Spiculated pleural-based nodule in the anterior right upper lobe for which PET imaging is recommended.
# Former smoker
Code status: changed back to DNR DNI after GOC discussion with family in person
DVT prophylaxis�heparin SQ
d/w , sister Karina and OTILIA in person.
Pt is extremely lethargic, appearing actively dying. Extensive discussion with family wrt GOC. Family agreed to change code status back to DNR DNI. Continue current management for now.
DW Fur Sorter
CC time 40 min
Anticipated Discharge: 24 - 48 hours
Subjective/Interval History
-
Date of Service: October 08, 2024
Objective Data
-
Labs:
Laboratory Results
10/08/24 10/08/24
05:01 13:00
WBC 12.1 H
Hgb 10.4 L
Hct 34.0 L
Plt Count 247 D
Sodium 140 Pending
Potassium 5.3 H Pending
Chloride 88 L Pending
Carbon Dioxide 37 H Pending
BUN 102 H* Pending
Creatinine 1.4 H Pending
Glucose 141 H Pending
Calcium 9.5 Pending
Vital Signs:
Vital Signs
Temp Pulse Resp BP Pulse Ox
36.6 C 87 22 131/64 87
10/08/24 11:20 10/08/24 11:38 10/08/24 11:38 10/08/24 08:50 10/08/24 12:10
I&O
10/07/24 10/08/24 10/09/24
06:59 06:59 06:59
Intake Total 50 / 50 7.5 / 7.5 7.5 / 7.5
Output Total 100 / 100
Balance -50 / -50 7. 7.5 7.5 / 7.
Review of Systems
-
Unable to obtain full review of systems at this time due to: Acuity
Physical Exam
-
General: Well Developed, Well Nourished, Respiratory Distress and Appears Chronically Ill; Negative Conversant
HEENT: Normocephalic, Atraumatic, Nose Appears Normal, Ears Appear Normal and Oxygen (100% high flow and NRB )
Respiratory: Non Labored Respirations; Negative Accessory Resp Muscle Use
Cardiac: Regular Rhythm and S1/S2
GI: Soft, Nontender, Nondistended and Normal Bowel Sounds
Skin: Warm and Dry
Psych: Calm
Data Reviewed
-
CT Scan: Report Reviewed by me
Medical Tests (Nuc Med, Echo etc): Report Reviewed by me ([facility])
Labs: Labs Reviewed by me
--- NOTE | 2024-10-08 14:57 | PN.CDI ---
CDI
- -
CDI:
Physician Documentation Request
Admit Date: 10/01/24 19:42
Dear Doctor Roselia,
Clinical Indicators:
Patient admitted with RV failure with severe pulmonary hypertension/tricuspid regurgitation + Acute HFpEF.
10/07 RHC: Cardiac Index : 1.6 L/min/m-2
10/08 (02:30) RN note,' Levo gtt started for hypotension'
Levophed requirements: 2-4 mcg/min
BP trend:
10/07/24
23:15 10/07/24
23:30 10/08/24
00:00
Blood pressure 75/46 79/46 78/58
10/08/24
01:00
Blood pressure 78/48
Please clarify which of the following is the most likely etiology of the above symptoms and treatment rendered:
Cardiogenic shock
Shock, other -please specify
Hypotension only - indicate type/etiology
Other
Use of terms such as suspected, likely, concern for, or probable (associated with a specific diagnosis that is being evaluated, monitored, or treated as if it exists) are acceptable and can be coded in the inpatient setting, when documented at the
time of discharge.
Thank you,
Isha Samaniego RN BSN
CDI Specialist
available via tiger text
Please use your independent medical judgment in providing your response.
--- NOTE | 2024-10-08 16:15 | CHAP ---
Addendum entered by Sharmin Meyers 10/09/24 09:19:
Monsignor Gooden came earlier than anticipated and provided Sacrament of the Sick for Ms. Angel.
Original Note:
Emotional and spiritual support provided for [place] and family at bedside. Resources for [place] help in connecting with family member who is in the provided. Mat Packer request relayed to on-call primer inserting machine operator, Monsignor Gooden, who
anticipates coming around 9:30pm today.
--- NOTE | 2024-10-08 16:24 | PTCARENOTE ---
Post cares provided. Late entry case coordinator working with family.
--- NOTE | 2024-10-08 16:28 | PTCARENOTE ---
Family in and out at bedside thru shift. Sat with attending and reading interventionist team several times thru shift. Family and patient return patient to DNR/DNI status. Working with [facility] to get additional family home to see patient. Family concerned
about patient poor prognosis and overall poor health. Family very emotional. Patient assessment unchanged. Levophed remains off. Patient off and on NRBM, with HiFlo prolonged recovery phases after desaturation. Recover with NRBM in addition to
several short sessions on NIV. Supportive cares, emotional support ongoing. Pastoral cares several times in to provide support.
[2024-10-08] MEDS: OFIRMEV 100 IV (17:18)
[2024-10-08 18:02] LABS: Glucose - Point of Care 110 mg/dl (70-99)
--- NOTE | 2024-10-08 19:45 | PTCARENOTE ---
Received patient at 1900. Pt. currently in bed. Awake, alert, and oriented. Family at bedside. Pt. denies pain/discomfort. Afebrile. Heart rhythm sinus. Blood pressure normotensive. Currently on HFNC w/ NRB mask. Po diet ordered. Incontinent of
bowel and bladder. PureWick in place. Skin as documented. Discussed plan of care with patient and family. Vital signs stable at this time.
[2024-10-08] MEDS: LIPITOR 40 MG PO (20:20)
[2024-10-08 22:08] LABS: Glucose - Point of Care 95 mg/dl (70-99)
[2024-10-09] VITALS (24 sets, daily range): BP systolic 73–119; BP diastolic 45–71; BMI 18.3
--- NOTE | 2024-10-09 | PTCARENOTE ---
Pt. assessment unchanged. Family remains at bedside. Medication given for pain, see MAR. Vital signs stable at this time.
[2024-10-09] MEDS: OFIRMEV 100 IV (00:10)
--- NOTE | 2024-10-09 04:30 | PTCARENOTE ---
Pt. assessment remains unchanged. AM labs drawn. Vital signs stable at this time.
[2024-10-09 04:44] LABS: Hematocrit 31.9 % (37.0-47.0); Hemoglobin 9.9 g/dL (12.0-16.0); Mean Corpuscular Hgb 31.6 pg (27.0-31.0); Mean Corpuscular Volume 101.9 fL (81.0-99.0); Platelet Count 207 10^3/uL (130-400); Red Blood Cell Count 3.13 10^6/uL (4.20-5.40); Red Cell Dist. Width 14.5 % (11.5-14.5); White Blood Cell Count 10.9 10^3/uL (4.8-10.8)
[2024-10-09 05:11] LABS: Blood Urea Nitrogen 113 mg/dl (7-17); Calcium 9.1 mg/dl (8.4-10.2); Chloride 86 mmol/L (98-107); Estimated Creatinine Clearance 23 ml/min; Glucose 76 mg/dl (70-99); Magnesium 2.2 mg/dl (1.6-2.3); Potassium 4.9 mmol/L (3.5-5.1); Sodium 137 mmol/L (135-145)
[2024-10-09 05:26] LABS: Carbon Dioxide 34 mmol/L (22-30)
[2024-10-09 07:37] LABS: Glucose - Point of Care 77 mg/dl (70-99)
--- NOTE | 2024-10-09 07:38 | W.PN.HOSP.TC ---
Today's Communication/Plan
-
see A/P
Assessment / Plan
Assessment / Plan
A/P:
# Acute on chronic hypoxic respiratory failure, Likely due to RV failure with severe pulmonary hypertension/tricuspid regurgitation + Acute HFpEF
s/p RHC 10/07 noted combined pre and postcapillary pulmonary hypertension. Severe postcapillary pulmonary hypertension suggestive of significant intrinsic pulmonary disease and elevated pulmonary capillary wedge pressure to 24 mmHg suggestive of a
degree of precapillary pulmonary hypertension.
Increased work of breathing and worsening hypoxia overnight 10/07, care was escalated after night team discussed with son despite guarded prognosis.
Now back to high flow 100% and NRB mask.
GOC discussed with family, they agreed to transition pt back to DNR DNI; continue other supportive measures.
Of note, recent echo showed hyperdynamic LV with EF of 70 to 75%, flattened septum, RV overload, severe tricuspid regurgitation, severe pulmonary hypertension
CT Chest: No acute disease of the chest. No pulmonary embolus. Spiculated pleural-based nodule in the anterior right upper lobe. Mild bilateral hilar and mediastinal lymphadenopathy. Stable
Flu/COVID negative
IV Lasix restarted, 40 mg daily x3 doses
Card on board , Pulmonary on board
# PARUL, improving
SCr 2.4 -> 1.5 today
monitor renal function with reinstitution of IV lasix
# COPD
was not on oxygen until July
Continue albuterol
# Recent sinus infection
Completed course of abx Amoxicillin
# Essential hypertension
Continue metoprolol
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
# Hyperlipidemia
Continue statin
# Type 2 diabetes
Hold metformin
Insulin sliding scale
# Anxiety/depression
Continue Lexapro
# Elevated troponin
# Nonischemic myocardial injury secondary to acute HFpEF, pulm hypertension
No chest pain
# Spiculated pleural-based nodule in the anterior right upper lobe for which PET imaging is recommended.
# Former smoker
Code status: changed back to DNR DNI after GOC discussion with family in person
DVT prophylaxis�heparin SQ
Updated sister Karina on the phone.
Continue current care. Prognosis guarded.
total time spent 51 min
Anticipated Discharge: Within 24 hours
Subjective/Interval History
-
Date of Service: October 09, 2024
Objective Data
-
Labs:
Laboratory Results
10/08/24 10/09/24
13:00 04:29
WBC 10.9 H
Hgb 9.9 L
Hct 31.9 L
Plt Count 207
Sodium Cancelled 137
Potassium Cancelled 4.9
Chloride Cancelled 86 L
Carbon Dioxide Cancelled 34 H
BUN Cancelled 113 H*
Creatinine Cancelled 1.5 H
Glucose Cancelled 76
Calcium Cancelled 9.1
Vital Signs:
Vital Signs
Temp Pulse Resp BP Pulse Ox
36.5 C 83 14 84/45 92
10/09/24 03:00 10/09/24 06:00 10/09/24 06:00 10/09/24 06:00 10/09/24 06:00
I&O
10/08/24 10/09/24 10/10/24
06:59 06:59 06:59
Intake Total 7.5 / 7.5 267.5 / 267.5
Balance 7.5 / 7.5 267.5 / 267.5
Review of Systems
-
Unable to obtain full review of systems at this time due to: Acuity
Physical Exam
-
General: Well Developed, Well Nourished, Respiratory Distress and Appears Chronically Ill
HEENT: Normocephalic, Atraumatic, Nose Appears Normal, Ears Appear Normal and Oxygen (100% high flow and NRB )
Respiratory: Non Labored Respirations; Negative Accessory Resp Muscle Use
Cardiac: Regular Rhythm and S1/S2
GI: Soft, Nontender, Nondistended and Normal Bowel Sounds
Skin: Warm and Dry
Psych: Calm
Data Reviewed
-
CT Scan: Report Reviewed by me
Medical Tests (Nuc Med, Echo etc): Report Reviewed by me ([facility])
Labs: Labs Reviewed by me
[2024-10-09] MEDS: HEPARIN 5000 UNITS SC (07:51)
[2024-10-09] MEDS: THERAGRAN 1 TABLET PO (07:52)
[2024-10-09] MEDS: LEXAPRO 20 MG PO (07:52)
[2024-10-09] MEDS: LOW STRENGTH ASPIRIN 81 MG PO (07:52)
[2024-10-09] MEDS: TOPROL XL PO (07:52)
[2024-10-09] MEDS: DUONEB 3 ML INH ×4 (08:13→19:57)
[2024-10-09] MEDS: PULMICORT 0.5 MG INH ×2 (08:13→19:56)
--- NOTE | 2024-10-09 08:58 | PTCARENOTE ---
Received patient at 0700. Pt. currently in bed. Awake, alert, and oriented. Pt. denies pain/discomfort. Afebrile. Heart rhythm sinus. Blood pressure normotensive. Currently on HFNC w/ NRB mask. Incontinent of bowel and bladder. depends on. Skin as
documented. Discussed plan of care with patient. Vital signs stable at this time.
--- NOTE | 2024-10-09 09:25 | W.PN.CARDCBS ---
Today's Communication / Plan
-
Continue gentle diuresis
Impression / Plan
-
PCP: Dr. Hernandez
Pulm: Dr. Garcia
Card: scheduled to see Dr. Connolly as a new patient 10/06/24
Impression:
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
High oxygen requirements
Admitted with multifactorial SOB 10/01/2024
Acute hypoxemic respiratory failure, multifactorial
Elevated troponin
Right heart failure
Heart failure preserved ejection fraction
COPD, stage IV
Former smoker
Weight loss
Spiculated pleural-based nodule in the anterior right upper lobe on CT chest 10/01/2024, largely unchanged compared to July 2024
-10/01/2024: CT chest: Spiculated pleural-based nodule in the anterior right upper lobe
-08/21/2024: Echo: LV: EF 70-75%. Flattened septum consistent with RV pressure/volume overload with D-shaped septum. RV: Dilated, LA: Normal, RA: Normal, MV: No MR, AV: Calcified AV with trace AI, TV: Severe TR with severe pulmonary hypertension
and estimated PAP 85-90 mmHg
-08/06/2024: PFT: FEV1: 0.69 (40%), FVC: 1.49 (64%). Findings were consistent with severe obstruction and mild restrictive lung disease
-07/22/2024: CT chest: Soft tissue fullness in the hilar region suggest at least mild hilar adenopathy with mild mediastinal adenopathy. There is a 1.4 cm based parenchymal opacity in the right upper lobe. Recommended PET.
RA (m) : 9
RV (s/d,m) : 96/8, 14
PA (s/d, m) : 92/34, 56
PCWP (m) : 24
AO: (Cuff pressure) 124/66, 89
Cardiac Output : 2.2 L/min Cardiac Index : 1.6 L/min/m-2
Systemic vascular resistance: 36.4 Wood units or 2909 [id number](-5)
Pulmonary vascular resistance: 14.5 Wood units or 1164 [id number](-5)
RADIATION SUMMARY: Fluoro Time (min): 6.5, Dose (mGy): 36.2, DAP (Gy.cm2) : 4.7
CONCLUSION:
1. Combined pre and postcapillary pulmonary hypertension. Severe postcapillary pulmonary hypertension suggestive of significant intrinsic pulmonary disease and elevated pulmonary capillary wedge pressure to 24 mmHg suggestive of a degree of
precapillary pulmonary hypertension
Plan:
RHC reviewed
HF likely secondary to significant PHTN, endstage COPD - cor pulmonale
Cr stable, but BUN rising
Cont gentle IV diuresis
Wean O2 as able
Cont medical therapy of nonMI troponin
Prognosis appears poor
Discussed with nursing
This is a 74-year-old female with a past medical history notable for severe underlying COPD and was initiated on home oxygen therapy in June 2024. Additional history includes hypertension and hyperlipidemia. Long history of tobacco abuse. A
chest CT scan from 07/22/2024 was notable for a 1.4 cm pleural-based parenchymal opacity in the anterior right upper lobe with recommended PET scan
.
She was evaluated by Dr. Katlin Garcia on 08/06/2024 for evaluation of shortness of breath and was found to have O2 saturations in the 60s on room air and required 10 L of O2 with ambulation to maintain O2 levels above 90%. Hospitalization was
discussed with the patient at that time which she refused. The patient had reported that her shortness of breath had been worsening over several years. She has refused hospitalization after her office visit with Dr. Garcia. She was seen on a second
occasion by Dr. Garcia on 10/01/2024. Troponin is mildly elevated 0.064 ng/ml
Progress Note - Back Up Scan Coordinator
Subjective
Date of Service: October 09, 2024
NAOE. Remains in ICU this AM. On bipap at the time of my exam, but reportedly on high flow overnight. Tells me LE edema is improved with still SOB.
Objective
Labs:
10/09/24 04:29
10/09/24 04:29
Labs
Hgb 9.9 g/dL (12.0-16.0) L 10/09/24 04:29
Hct 31.9 % (37.0-47.0) L 10/09/24 04:29
Plt Count 207 10^3/uL (130-400) 10/09/24 04:29
Sodium 137 mmol/L (135-145) 10/09/24 04:29
Potassium 4.9 mmol/L (3.5-5.1) 10/09/24 04:29
BUN 113 mg/dl (7-17) H* 10/09/24 04:29
Creatinine 1.5 mg/dL (0.6-1.0) H 10/09/24 04:29
Glucose 76 mg/dl (70-99) 10/09/24 04:29
Vital Signs and I&O:
Vital Signs
Temp Pulse Resp BP Pulse Ox
97.5 F 97 29 73/55 89
10/09/24 07:35 10/09/24 08:13 10/09/24 08:13 10/09/24 08:00 10/09/24 08:51
Vital Signs
Temp Pulse Resp BP Pulse Ox
97.5 F 97 29 73/55 89
10/09/24 07:35 10/09/24 08:13 10/09/24 08:13 10/09/24 08:00 10/09/24 08:51
Intake & Output
10/07/24 10/08/24 10/09/24 10/10/24
06:59 06:59 06:59 06:59
Intake Total 50 / 50 7.5 / 7.5 267.5 / 267.5
Output Total 100 / 100
Balance -50 / -50 7.5 / 7.5 267.5 / 267.5
Physical Exam
Physical Exam
Gen: NAD, AA
HEENT: NC/AT, sclera anicteric
Neck: No JVD
CV: RRR, NL s1/s2
Lungs: No increased WOB on bipap
Abd: S/ND
Ext: No LE edema
Skin: Warm, dry
Neuro: Non-focal
--- NOTE | 2024-10-09 11:06 | W.PN.PUL3 ---
Today's Communication / Plan
-
Gentle diuresis as able
Continue to follow renal function
Continue high flow oxygen with nonrebreather mask
Continue noninvasive mechanical ventilation
Nutrition as able
Continue nebulizer therapy
Goals of care discussions ongoing.
Assessment
-
74-year-old woman with past medical history noted, advanced COPD with chronic hypoxemic respiratory failure. Here for evaluation of worsening hypoxemia requiring up to high flow oxygen. CT chest without pulmonary embolism or significant
parenchymal lung abnormalities. Prior echocardiogram in mid August 2024 showed severe pulmonary hypertension. We were consulted on 10/02/2024 for evaluation
Acute hypoxemic respiratory failure requiring up to high flow oxygen due to severe PH with PVR 14.5 via RHC on 10/07/2024 with both pre and postcapillary components
proBNP 18,800/mild troponin leak
Likely due to RV failure with severe pulmonary hypertension based on echocardiogram 08/21/2020
CT chest 10/01/2024: No evidence for pulmonary embolism. Spiculated pleural-based nodule in the anterior right upper lobe stable. Mild bilateral hilar and mediastinal lymphadenopathy.
Lung nodule 1.4X 0.8 cm pleural-based, spiculated, noncalcified right upper lobe-present since 07/2024.
PET scan recommended the patient did not follow through.
Condition present prior admission
Severe COPD: Chronic hypoxemic respiratory failure
Follows with Dr. Garcia last appointment 08/06/2024
Spirometry 08/06/2024: post-BD FEV1: 0.78L/45% predicted, ratio 46 --> 48 with bronchodilator.
Worsening hypoxemic respiratory failure: On 08/06/2024 recommended to go to the emergency room and obtain echo echocardiogram
On BREZTRI
Former smoker [id number] history.
Possible obstructive sleep apnea
Pulmonary nodule 1.4 pleural-based irregular parenchymal opacity in the right upper lobe-PET scan was recommended.
CT chest 07/22/2024: Coarse interstitial markings seen bilaterally, diffuse. Upper lobe predominant. Hyperinflation. Prominent pulmonary artery. 1.4 pleural-based irregular parenchymal opacity on the right upper lobe.
50 pound weight loss over the last 3 to 4 years.
Hyperlipidemia
history of psoriasis-treated with topical medical
Type 2 diabetes
Back surgery in the
Echocardiogram 08/21/2024: Reviewed, showed small left ventricular size. Hyperdynamic. Ejection fraction 70 to 75%. Flattened septum in systole consistent with RV pressure overload. Enlarged right ventricular size. Normal right ventricular
systolic function.
Severe TR. Severe pulmonary hypertension pressure 85 to 90 mmHg.
Assessment and plan:
Critically ill: Patient is a difficult situation with no good options.
-
Severe hypoxemia due to likely due to acute on chronic pulmonary hypertension: Multiple mechanisms, cor pulmonale from underlying lung disease, chronic hypercapnic respiratory failure untreated, and heart failure with preserved ejection
fraction-based on right heart catheterization from 10/07/2024 has a component of pulmonary arterial hypertension with increased transpulmonary gradient but also has increased wedge pressure suggestive of left-sided/postcapillary'
Liver function testing is normal.
-
Given her underlying severe COPD, I reviewed with her the treatment options may not be available given the lack of data to support vasodilator therapy in the setting of severe COPD.
With increased pulmonary capillary wedge pressure, pulmonary vasodilators can carry increased risk of cardiovascular complication and worsening hypoxemia. Same applies to advanced COPD due to VQ mismatch.
CT chest noted with emphysema 10/01/2024. There is no interstitial lung disease per right upper lobe small pulmonary nodule.
PET scan has been recommended in the past-this was ordered by primary care. Is still pending. This will be put on hold as the patient's clinical situation has deteriorated.
-
Patient does report exposures to weight loss medications 30 to 40 years ago. She does not recall the names. May be an etiology for pulmonary arterial hypertension.
C-reactive protein is slightly elevated 10.2. Less likely inflammatory process.
Normal TSH
VERITO-negative. Suspicion for connective tissue disease associated pulmonary hypertension is less likely.
-
Condition deteriorated and patient transferred to the critical care unit 10/07/2024.
No significant improvement to 02/20/2025.
Remains on high flow oxygen now at 100/%/ FiO2, 50 L + NRB. Maintain pulse ox above 90%.
Continue noninvasive mechanical ventilation: Settings discussed and adjusted, she tolerated overnight. Will continue as able.
Minimal effort dyspnea.10/09/2024
Ongoing desaturations with any activity.
-
Continue COPD regimen:
Usually on triple therapy in the outpatient setting.
Will transition to nebulized therapy DuoNeb/Pulmicort. Hold inhalers.
There is no evidence for acute exacerbation-not bronchospastic on exam
No indication for systemic corticosteroids-not bronchospastic on exam.
-
Unfortunately creatinine bumped, BUN over 100.
IV diuresis was on hold - last given on 10/05/2024-discussed with cardiology will back down slightly on IV diuresis as creatinine has bumped.
Right heart cath performed today showing severe pre as well as postcapillary pulmonary hypertension with PVR of 14 and PCWP 24 --> IV Lasix given, weight trending lower. Unfortunately creatinine increased.
- Her pH is likely largely due to precapillary PH given her TPG is 22, with PVR 14.5 Hewitt units and mPAP 56 mmHg-likely from cor pulmonale/advanced COPD.
- Unfortunately there are no large randomized trials involved in the use of PDE 5 inhibitors with insufficient evidence to support its general use and ideally this patient should be referred to a pH center for individual decision making-doubt that
she would benefit from this at this point.
-No good options in her case.
-
ABG 10/03/2024: 7.41/70/62(on high flow oxygen) Chronic hypercapnic respiratory failure-compensated. This is also likely contributing to her pulmonary hypertension as it is untreated.
Mental status baseline. Alert, cooperative.
Avoid sedatives.
Suspect due to underlying advanced COPD.
Noninvasive mechanical ventilation started 10/07/2024. Continue without change when as-needed basis and at bedtime.
She has been recommended to undergo a sleep study but has not been able to do it.
There is suspicion for obstructive sleep apnea.
-
Her weight loss over time may be from pulmonary cachexia.
Nutritional support
Aspiration precautions
-
DVT prophylaxis with heparin subcutaneous
-
Will follow
Extensive discussion with family 10/09/2024: No significant improvement over the last 8 days. I agree with DNR status. Consider palliative care or hospice.
Dr. Lyon updated family 10/08/2024. Prognosis is guarded. No good options at this point. DNR reinstated
Dr. Krueger reviewed with cardiology on 10/05; Dr. Haro reviewed with Dr. Connolly on 10/07/[address] Lyon updated and patient in detail on 10/02/2024.
Dr. Krueger reviewed with and family members at bedside 10/04/2024
-
DNR status reinstated 10/08/2024.
Prognosis is guarded
-
Outpatient follow-up with Dr. Garcia after discharge.
Critical care statement: A total of 33 minutes of critical care time was provided for this patient today. This includes management of unstable vital signs, evaluation of the patient at bedside, reviewing the patient's pertinent medical records
including ventilator settings, arterial blood gases, radiographs, microbiology, laboratory evaluations and discussion with primary team, critical care nursing, and respiratory therapy.
Data:
Right heart catheterization 10/07/24:
Hemodynamics (mmHg):
RA (m) : 9
RV (s/d,m) : 96/8, 14
PA (s/d, m) : 92/34, 56
PCWP (m) : 24
AO: (Cuff pressure) 124/66, 89
Cardiac Output : 2.2 L/min Cardiac Index : 1.6 L/min/m-2
Systemic vascular resistance: 36.4 Wood units or 2909 [id number]-vc(-5)
Pulmonary vascular resistance: 14.5 Wood units or 1164 [id number]-pez-op(-5)
Subjective Data
-
Date of Service:
Date of Service: October 09, 2024
Chief Complaint: Pulmonary Follow Up (Hypoxemic respiratory failure/pulmonary hypertension)
Subjective:
Continues to report minimal effort dyspnea
Ongoing significant hypoxemia,
Remains on low-dose Levophed
Review of Systems
Cardiopulmonary: Dyspnea, Dyspnea on Exertion and Cough
Objective Data
Data Reviewed
Vital Signs / I&O / Oxygen:
Vital Signs
Temp Pulse Resp BP Pulse Ox
97.5 F 97 29 73/55 89
10/09/24 07:35 10/09/24 08:13 10/09/24 08:13 10/09/24 08:00 10/09/24 08:51
Intake and Output
10/08/24 10/09/24 10/10/24
06:59 06:59 06:59
Intake Total 7.5 / 7.5 267.5 / 267.5
Balance 7.5 / 7.5 267.5 / 267.5
SaO2 89
Nasal Cannula flow liters per 55
minute
Physical Exam
General: Respiratory Distress (n) and Comfortable (Cachectic)
HEENT: Normocephalic and Anicteric
Cardiovascular: S1-S2, Murmur (n), Rub (n) and Peripheral Edema (n)
Respiratory: Wheeze (n), Crackles (Bibasilar), Rhonchi (n), Non-Labored Respirations and Other (Diminished breath sounds bilaterally)
GI: Soft, Non Distended, Non Tender and Normal Bowel Sounds
Neurology: AO x 3, No Motor Deficits (Able to sit up without assistance) and Tremors (n)
Skin: Warm, Dry, Cyanosis (Mild peripheral cyanosis) and Jaundice (n)
Labs/Micro/Reports
Lab Data
10/09/24 04:29
10/09/24 04:29
Microbiology
10/06/24 08:04 Nasal Swab Influenza Types A & B (APRYL) - Final
Negative for Influenza A & B, NAAT
Negative results must be combined with clinical observations
and patient history.
Nucleic Acid Amplification test (NAAT)performed on the
[employer] platform.
[2024-10-09 11:43] LABS: Glucose - Point of Care 91 mg/dl (70-99)
--- NOTE | 2024-10-09 12:00 | PTCARENOTE ---
Pt on NIV for approx 20min at a time then to HF/NRB for 30min-2hr until pt desats into 70s. Then pt gets SOB and requests NIV. No c/o pain. No family at bedside at this time.
--- NOTE | 2024-10-09 15:08 | PTCARENOTE ---
Son to bedside. Fire Technology Instructor discussed status and goals of care with family. See triage specialist note.
--- NOTE | 2024-10-09 15:21 | W.PN.UPDATE ---
Update Note
Progress Note Update
Discussed with family son, at the bedside regarding poor clinical condition.
No improvement despite 8 days in the hospital. Severe pulmonary hypertension, RV failure, refractory hypoxemia from advanced COPD, chronic hypercapnic respiratory failure.
Pulmonary cachexia. Increased work of breathing with conversation. Patient uncomfortable.
Currently on maximal medical therapy. We have decided to de-escalate therapy, continue with current level without addition of any vasopressors, intubation. Will focus on comfort.
Would not add any vasopressors or additional therapies.
Will consider palliative care consultation in the next 24 hours depending on clinical situation
Discontinue noninvasive mechanical ventilator, start BiPAP as needed if patient desires.
Continue current oxygen therapy
Continue nebulizers morphine IV as needed added for increased work of breathing. Will give 1 dose now as the patient asked for it.
Ativan IV as needed added
Will transfer to [facility].
Pulmonary will follow
[2024-10-09] MEDS: MORPHINE SULFATE 1 MG IV ×2 (15:34→20:25)
[2024-10-09] MEDS: ATIVAN 1 MG IV ×2 (17:08→22:12)
[2024-10-09 17:11] LABS: Glucose - Point of Care 97 mg/dl (70-99)
--- NOTE | 2024-10-09 17:48 | PTCARENOTE ---
No escalation of care at this time. Ativan and morphine added to PRN list. Will adjust from BiPAP to HF/NRB as pt requests.
--- NOTE | 2024-10-09 21:11 | PTCARENOTE ---
on assessment pt restless and attempting to remove cardiac cath technologist and NIV, PRN meds given see MAR, SR/ST on the monitor, BPs soft with maps above 65, no BM today, pt incontinent of b/b, pt repositioned and call estrada in reach.
[2024-10-09 21:46] LABS: Glucose - Point of Care 108 mg/dl (70-99)
[2024-10-09] MEDS: NSS (PRESERVATIVE FREE) 0.5 ML IV (22:13)
[2024-10-10] VITALS: BP 87/60
--- NOTE | 2024-10-10 00:09 | PTCARENOTE ---
pt pulse ox gradually decreasing over the past few hours, family called and at bedside, RADIATION SAFETY OFFICER at bedside to speak to family, family decided to make pt comfort, pulse ox 60% on the NIV, BP 80s/60s, and HR 100-115.
--- NOTE | 2024-10-10 00:15 | W.PN.UPDATE ---
Addendum entered and electronically signed by RAMIREZ Valderrama 10/10/24 01:57:
Work note excuse provided to son for 10/09/24-10/10/24.
Original Note:
Update Note
Progress Note Update
Family called to bedside oxygen saturation sustained 60s%, patient's son had requested to be called with significant vital sign changes. Patient's and son at bedside, discussed goals of care and comfort measures; answered all questions.
Family wishes to move to comfort measures, morphine comfort measures protocol will be ordered/initiated, will remove oxygen/mask/NIV when comfort has been achieved with morphine. RN updated with plan of care to comfort measures, orders placed.
[2024-10-10] MEDS: MORPHINE 100 IV (00:37)
[2024-10-10] MEDS: MORPHINE SULFATE 2 MG IV ×2 (00:39→01:01)
[2024-10-10 01:00] VITALS: BP 93/53
--- NOTE | 2024-10-10 01:57 | W.PN.DEATH ---
Pronouncement of
-
Called to see patient to pronounce.
No spontaneous heart tones or respirations noted.
Patient not responsive to verbal stimuli.
Patient is pronounced .
Time of : 01:35
Date of : 10/10/24
Cause of : acute hypoxemic respiratory failure
Family Notified: Yes ( and son at bedside at time of )
--- NOTE | 2024-10-10 03:00 | PTCARENOTE ---
GAVIN called, post mortem care completed, family left with all pt belongings, time of 0135.
== END 2024-10-10 01:35 | disposition expired | DRG 286 ==
LOC: ICU 19:42
PROVIDERS: Emergency Medicine; Internal Medicine; Internal Medicine Cardiovascular Disease; Internal Medicine Interventional Cardiology; ADMITTING PHYSICIAN Hospitalist; ATTENDING PHYSICIAN Internal Medicine; CONSULT PHYSICIAN Internal Medicine Cardiovascular Disease; CONSULT PHYSICIAN Internal Medicine Critical Care Medicine; EMERGENCY PHYSICIAN Emergency Medicine; FAMILY PHYSICIAN Family Medicine
PROC: 5A0935A Assistance with Respiratory Ventilation, Less than 24 Consecutive Hours, High Flow/Velocity Cannula (ICD-10-PCS; 2024-10-01)
PROC: 4A023N6 Measurement of Cardiac Sampling and Pressure, Right Heart, Percutaneous Approach (ICD-10-PCS; 2024-10-07)
PROC: 5A09357 Assistance with Respiratory Ventilation, Less than 24 Consecutive Hours, Continuous Positive Airway Pressure (ICD-10-PCS; 2024-10-09)
DX: I07.1 Rheumatic tricuspid insufficiency (principal); I50.31 Acute diastolic (congestive) heart failure; J96.21 Acute and chronic respiratory failure with hypoxia; R64 Cachexia; Z68.1 Body mass index [BMI] 19.9 or less, adult; I5A Non-ischemic myocardial injury (non-traumatic); N17.9 Acute kidney failure, unspecified; I27.29 Other secondary pulmonary hypertension; Z66 Do not resuscitate; E11.9 Type 2 diabetes mellitus without complications; E78.5 Hyperlipidemia, unspecified; F32.A Depression, unspecified; F41.9 Anxiety disorder, unspecified; G47.33 Obstructive sleep apnea (adult) (pediatric); R57.0 Cardiogenic shock; J44.9 Chronic obstructive pulmonary disease, unspecified; Z88.5 Allergy status to narcotic agent; Z79.82 Long term (current) use of aspirin; Z79.84 Long term (current) use of oral hypoglycemic drugs; Z79.899 Other long term (current) drug therapy; Z87.891 Personal history of nicotine dependence; Z99.81 Dependence on supplemental oxygen; Z11.52 Encounter for screening for COVID-19
CPT/HCPCS: 36600; 71045; 71275; 80048; 80053; 82805; 82962; 83036; 83735; 83880; 84145; 84443; 84484; 85025; 85027; 85652; 86038; 86140; 87502; 87811; 93005; 93451; 94640; 94660; 99291; C1769; C1894; Q9967